=== PATIENT | female | born 1960 | race Caucasian/White ===

== ENCOUNTER 2020-03-02 13:05 | Outpatient (REF) | payer OTHER, SELFPAY ==
--- NOTE | 2020-03-02 | MR_ITS ---
EXAMINATION: MR CHEST WITHOUT AND WITH CONTRAST CLINICAL INFORMATION: Left subclavicular mass and swelling. COMPARISON: Previous neck and chest CT November 2019. TECHNIQUE: Sagittal, axial coronal sequences through the left chest with and without contrast. Patient received 8.5 mL intravenous gadolinium contrast. FINDINGS: No chest wall mass, abnormal signal or enhancement is seen. The overlying fat is normal in signal. No adenopathy is seen. The visualized left lung is unremarkable. The visualized mediastinum and left hilum are unremarkable. There is mild degenerative spondylosis at C5-C6. IMPRESSION: Unremarkable examination.
== END 2020-03-02 13:06 | disposition home or self-care (01) ==
LOC: HO.MRI 13:05
PROVIDERS: Visit Provider Surgery
DX: R22.2 Localized swelling, mass and lump, trunk (principal)
CPT/HCPCS: 71552

== ENCOUNTER → 2020-03-05 13:26 | Outpatient (BNVA) | payer OTHER, SELFPAY | PROVIDERS: Referring Provider Internal Medicine; Visit Provider Surgery | DX: Z76.89 Persons encountering health services in other specified circumstances (principal) ==

== ENCOUNTER → 2020-03-18 09:02 | Outpatient (BNVA) | payer OTHER, SELFPAY | PROVIDERS: PCP Internal Medicine; Visit Provider Surgery | DX: Z76.89 Persons encountering health services in other specified circumstances (principal) ==

== ENCOUNTER 2020-04-30 06:36 | Outpatient (REF) | payer OTHER, SELFPAY ==
[2020-04-30 07:18] LABS: MANUAL DIFF FLAG NO
[2020-04-30 07:22] LABS: Basophils Absolute Auto 0.1 X10*3/uL (0.0-0.2); Basophils Percent Auto 0.7 % (0-2); Eosinophils Absolute Auto 0.3 X10*3/uL (0.0-0.4); Eosinophils Percent Auto 4.5 % (0-4); Hematocrit 39.6 % (37-47); Hemoglobin 13.1 g/dl (12.0-16.0); Imm Gran Abs Auto 0.02 X10*3/uL (0.00-0.03); Imm Gran Pct Auto 0.3 % (0.0-0.4); Lymphocytes Absolute Auto 2.1 X10*3/uL (1.2-4.9); Lymphocytes Percent Auto 27.9 % (20-40); Mean Corpuscular HGB Conc 33.1 g/dl (31.0-35.0); Mean Corpuscular Hemoglobin 31.3 pg (27.0-33.0); Mean Corpuscular Volume 94.7 fL (80-98); Mean Platelet Volume 10.4 fL (9.4-12.3); Monocytes Absolute Auto 0.4 X10*3/uL (0.1-1.2); Monocytes Percent Auto 4.8 % (2-11); Neutrophils Absolute Auto 4.6 X10*3/uL (2.0-8.3); Neutrophils Percent Auto 61.8 % (45-73); Platelet Count 311 X10*3/uL (160-400); Red Blood Count 4.18 X10*6/uL (4.20-5.50); Red Cell Distribution Width 13.2 % (11.0-16.0); White Blood Count 7.5 X10*3/uL (4.8-10.8)
[2020-04-30 07:33] LABS: Alanine Aminotransferase 15 U/L (0-31); Albumin Level 4.2 g/dL (3.5-5.0); Alkaline Phosphatase 74 U/L (39-117); Anion Gap 12 (12-20); Aspartate Amino Transferase 13 U/L (5-31); Bilirubin Total 0.2 mg/dL (0.0-1.0); Blood Urea Nitrogen 19 mg/dL (9-16); C Reactive Protein 0.28 mg/dL (< or = 0.50); Calcium 9.2 mg/dL (8.4-10.2); Carbon Dioxide 30 mmol/L (22-29); Chloride 105 mmol/L (96-108); Cholesterol 223 mg/dL; Estimated Glomerular Filt Rate > 60; Glucose Fasting 94 mg/dL (60-99); HDL Cholesterol 46 mg/dL; Iron 124 mcg/dL (30-160); LDL Cholesterol Calculated 146 mg/dl; Percent Iron Saturation 39 % (15-50); Potassium 5.1 mmol/l (3.3-5.1); Sodium 142 mmol/L (135-145); Total Iron Binding Capacity 315 mcg/dL (228-428); Triglycerides 157 mg/dL; Unsaturated Iron Binding 191 ug/dL
[2020-04-30 07:57] LABS: Thyroid Stimulating Hormone 1.34 uIU/mL (0.32-4.0); Vitamin D 25-OH Total 22.7 ng/mL (>30)
[2020-04-30 08:00] LABS: Vitamin B12 490 pg/mL (200-900)
[2020-05-04 03:06] LABS: Zinc 83 mcg/dL (60-130)
[2020-05-04 13:07] LABS: Vitamin B1 7 nmol/L (8-30)
[2020-05-07 14:52] LABS: Vitamin A 61 mcg/dL (38-98)
== END 2020-04-30 06:37 | disposition home or self-care (01) ==
LOC: HO.LAB 06:36
PROVIDERS: PCP Internal Medicine; Referring Provider Surgery; Visit Provider Internal Medicine Endocrinology, Diabetes & Metabolism
DX: Z01.818 Encounter for other preprocedural examination (principal); K91.2 Postsurgical malabsorption, not elsewhere classified
CPT/HCPCS: 36415; 80053; 80061; 82306; 82607; 83540; 84425; 84443; 84590; 84630; 85025; 86140

== ENCOUNTER 2020-05-04 06:38 | Outpatient (REF) | payer OTHER, SELFPAY ==
[2020-05-04 14:08] LABS: Creatinine, 24Hr Urine 1.5 G/Day (1.0-2.0); Total Volume 24 Hour Urine 850 mL
[2020-05-05 19:13] LABS: Calcium, 24 Hr Urine 121 mg/24 h; Calcium/Creatinine Ratio 82 mg/g creat (30-275); Creatinine 24Hr Urine 1.47 g/24 h (0.50-2.15)
== END 2020-05-04 06:39 | disposition home or self-care (01) ==
LOC: HO.LNPL 06:38
PROVIDERS: PCP Internal Medicine; Visit Provider Internal Medicine Endocrinology, Diabetes & Metabolism
DX: E21.3 Hyperparathyroidism, unspecified (principal)
CPT/HCPCS: 82340; 82570

== ENCOUNTER 2020-05-28 09:21 | Outpatient (REF) | payer OTHER, SELFPAY ==
[2020-05-29 13:12] LABS: BV Int Neg Control Negative (Negative); BV Int Pos Control Positive (Positive)
[2020-06-03 18:33] LABS: HPV 16 RNA NOT DETECTED (NOT DETECTED); HPV mRNA E6/E7 rflx Detected (Not Detected)
== END 2020-05-28 09:22 | disposition home or self-care (01) ==
LOC: HO.LAB 09:21
PROVIDERS: Visit Provider Advanced Practice Midwife
DX: Z12.4 Encounter for screening for malignant neoplasm of cervix (principal); N89.8 Other specified noninflammatory disorders of vagina; R23.2 Flushing; N76.0 Acute vaginitis; N63.13 Unspecified lump in the right breast, lower outer quadrant; Z91.89 Other specified personal risk factors, not elsewhere classified
CPT/HCPCS: 36415; 87480; 87510; 87624; 87625; 87660; 88142

== ENCOUNTER 2020-06-03 14:40 | Outpatient (REF) | payer OTHER, SELFPAY ==
--- NOTE | 2020-06-03 14:48 | MM_ITS ---
EXAMINATION: MM DIAGNOSTIC DIGITAL BREAST TOMOSYNTHESIS, BILATERAL US DIAGNOSTIC ULTRASOUND BREAST, RIGHT CLINICAL INFORMATION: Palpable fullness inferior lateral right breast near inframammary fold. Remote history bilateral reduction mammoplasty decades ago. Recent history significant weight loss, post gastric sleeve. The lifetime risk of breast cancer based on the Tyrer-Cuzick Model is 8%. COMPARISON: Mammography: 07/18/2018, 07/07/2017, TECHNIQUE: Digital breast tomosynthesis is performed in both the craniocaudal and mediolateral oblique views along with computer-aided detection (CAD). Synthesized 2D images are generated from the tomosynthesis. Ultrasound right breast is targeted to the area of palpable concern inferior lateral breast near inframammary fold. Patient is able to point to the area time of imaging. Grayscale imaging and color Doppler are performed without and with harmonics. FINDINGS: There are scattered areas of fibroglandular density (ACR BI-RADS breast composition Category b). Breast tissue composition borders on predominantly fatty. Background fibroglandular and stromal densities are stable. There is no interval mass or developing density or architectural abnormality. No abnormal calcifications. No skin thickening or coarsening of the Golden's ligaments. Ultrasound no cystic or solid mass, architectural abnormality, or focal duct ectasia. No skin thickening or edema tracking in soft tissue planes. There is a fine incidental linear scar consistent with the reduction mammoplasty. Results are discussed with the patient at time of visit. Palpable area may be related to the rib or reduction mammoplasty, noticeable post intentional weight loss. Patient should be managed based on the clinical impression. If clinically indicated, further evaluation may be considered with surgical consult. Decision to proceed with biopsy should be based on clinical grounds and degree of clinical concern. MM/MM diagnostic mammo BI IMPRESSION: 1. No mammographic evidence of malignancy. 2. Unremarkable targeted right breast ultrasound. ASSESSMENT: BI-RADS 2: Benign RECOMMENDATION: 1. Patient should be managed based on the clinical impression. If clinically indicated, further evaluation may be considered with surgical consult. Decision to proceed with biopsy should be based on clinical grounds and degree of clinical concern. 2. Otherwise, routine annual screening mammography. This patient's information was entered into a reminder system with a target due date for their next mammogram.
== END 2020-06-03 14:41 | disposition home or self-care (01) ==
LOC: HO.MAMMO 14:40
PROVIDERS: Visit Provider Advanced Practice Midwife
DX: N63.13 Unspecified lump in the right breast, lower outer quadrant (principal)
CPT/HCPCS: 76642; 77066

== ENCOUNTER 2020-06-05 06:50 | Outpatient (REF) | payer OTHER, SELFPAY ==
[2020-06-05 07:16] LABS: COVID-19 Test Negative (Negative)
== END 2020-06-05 06:51 | disposition home or self-care (01) ==
LOC: HO.EMPCOV 06:50
PROVIDERS: PCP Internal Medicine; Visit Provider Internal Medicine
DX: Z20.822 Contact with and (suspected) exposure to COVID-19 (principal)
CPT/HCPCS: 36415; 87635; C9803

== ENCOUNTER 2020-06-10 09:21 | Outpatient (REF) | payer OTHER, SELFPAY ==
[2020-06-10 09:38] LABS: COVID-19 Test Negative (Negative)
== END 2020-06-10 09:22 | disposition home or self-care (01) ==
LOC: HO.EMPCOV 09:21
PROVIDERS: Visit Provider Internal Medicine
DX: Z20.822 Contact with and (suspected) exposure to COVID-19 (principal)
CPT/HCPCS: 36415; 87635; C9803

== ENCOUNTER 2020-07-07 08:02 | Outpatient (REF) | payer OTHER, SELFPAY | END 2020-07-07 08:03 | disposition home or self-care (01) | LOC: HO.LAB 08:02 | PROVIDERS: PCP Internal Medicine; Visit Provider Obstetrics & Gynecology | DX: R87.612 Low grade squamous intraepithelial lesion on cytologic smear of cervix (LGSIL) (principal); N89.0 Mild vaginal dysplasia | CPT/HCPCS: 57421; 88305 ==

== ENCOUNTER 2020-07-16 15:24 | Outpatient (REF) | payer OTHER, SELFPAY ==
[2020-07-17 08:59] LABS: BV Int Neg Control Negative (Negative); BV Int Pos Control Positive (Positive)
== END 2020-07-16 15:25 | disposition home or self-care (01) ==
LOC: HO.LAB 15:24
PROVIDERS: Visit Provider Nurse Practitioner Family
DX: R10.2 Pelvic and perineal pain (principal); R35.0 Frequency of micturition
CPT/HCPCS: 87086; 87088; 87186; 87480; 87510; 87660

== ENCOUNTER → 2020-07-21 15:46 | Outpatient (BNVA) | payer OTHER, SELFPAY | PROVIDERS: PCP Internal Medicine; Visit Provider Obstetrics & Gynecology ==

== ENCOUNTER → 2020-08-24 10:07 | Outpatient (BNVA) | payer OTHER, SELFPAY | PROVIDERS: PCP Internal Medicine; Visit Provider Surgery ==

== ENCOUNTER 2020-09-03 13:53 | Outpatient (REF) | payer OTHER, SELFPAY ==
[2020-09-03 15:08] LABS: COVID-19 Test Negative (Negative)
== END 2020-09-03 13:54 | disposition home or self-care (01) ==
LOC: HO.EMPCOV 13:53
PROVIDERS: Visit Provider Internal Medicine
DX: Z20.822 Contact with and (suspected) exposure to COVID-19 (principal)
CPT/HCPCS: 36415; 87635; C9803

== ENCOUNTER → 2020-09-16 14:14 | Outpatient (BNVA) | payer OTHER, SELFPAY | PROVIDERS: PCP Surgery; Referring Provider Surgery; Visit Provider Internal Medicine Endocrinology, Diabetes & Metabolism | DX: M85.89 Other specified disorders of bone density and structure, multiple sites (principal); E55.9 Vitamin D deficiency, unspecified | CPT/HCPCS: 99212 ==

== ENCOUNTER 2020-09-23 06:35 | Outpatient (REF) | payer OTHER, SELFPAY ==
[2020-09-23 06:58] LABS: MANUAL DIFF FLAG NO
[2020-09-23 07:04] LABS: Basophils Absolute Auto 0.1 X10*3/uL (0.0-0.2); Basophils Percent Auto 0.6 % (0-2); Eosinophils Absolute Auto 0.4 X10*3/uL (0.0-0.4); Eosinophils Percent Auto 4.6 % (0-4); Hematocrit 38.8 % (37-47); Hemoglobin 12.8 g/dl (12.0-16.0); Imm Gran Abs Auto 0.03 X10*3/uL (0.00-0.03); Imm Gran Pct Auto 0.4 % (0.0-0.4); Lymphocytes Absolute Auto 2.6 X10*3/uL (1.2-4.9); Lymphocytes Percent Auto 30.1 % (20-40); Mean Corpuscular Hemoglobin 31.4 pg (27.0-33.0); Mean Corpuscular Volume 95.3 fL (80-98); Mean Platelet Volume 10.4 fL (9.4-12.3); Monocytes Absolute Auto 0.5 X10*3/uL (0.1-1.2); Monocytes Percent Auto 5.6 % (2-11); Neutrophils Percent Auto 58.7 % (45-73); Platelet Count 289 X10*3/uL (160-400); Red Blood Count 4.07 X10*6/uL (4.20-5.50); White Blood Count 8.5 X10*3/uL (4.8-10.8)
[2020-09-23 07:44] LABS: Alanine Aminotransferase 17 U/L (0-31); Albumin Level 4.1 g/dL (3.5-5.0); Alkaline Phosphatase 82 U/L (39-117); Anion Gap 10 (12-20); Aspartate Amino Transferase 14 U/L (5-31); Bilirubin Total 0.5 mg/dL (0.0-1.0); Blood Urea Nitrogen 23 mg/dL (9-16); Calcium 8.9 mg/dL (8.4-10.2); Carbon Dioxide 31 mmol/L (22-29); Chloride 106 mmol/L (96-108); Estimated Glomerular Filt Rate > 60; Glucose Random 98 mg/dL (60-115); Potassium 4.2 mmol/L (3.3-5.1); Sodium 143 mmol/L (135-145); Total Protein 6.8 g/dL (6.5-8.0)
[2020-09-23 07:46] LABS: Alanine Aminotransferase 17 U/L (0-31); Albumin Level 4.1 g/dL (3.5-5.0); Alkaline Phosphatase 81 U/L (39-117); Anion Gap 12 (12-20); Aspartate Amino Transferase 15 U/L (5-31); Bilirubin Total 0.5 mg/dL (0.0-1.0); Blood Urea Nitrogen 23 mg/dL (9-16); C Reactive Protein 0.42 mg/dL (< or = 0.50); Carbon Dioxide 29 mmol/L (22-29); Chloride 106 mmol/L (96-108); Cholesterol 227 mg/dL; Estimated Glomerular Filt Rate > 60; Glucose Fasting 98 mg/dL (60-99); HDL Cholesterol 45 mg/dL; Iron 101 mcg/dL (30-160); LDL Cholesterol Calculated 139 mg/dl; Percent Iron Saturation 33 % (15-50); Potassium 4.1 mmol/L (3.3-5.1); Sodium 143 mmol/L (135-145); Total Iron Binding Capacity 310 mcg/dL (228-428); Total Protein 6.8 g/dL (6.5-8.0); Triglycerides 217 mg/dL; Unsaturated Iron Binding 209 ug/dL
[2020-09-23 08:06] LABS: Thyroid Stimulating Hormone 1.14 uIU/mL (0.32-4.0); Vitamin D 25-OH Total 25.8 ng/mL (>30)
[2020-09-23 08:33] LABS: Estimated Average Glucose 108 mg/dL; Hemoglobin A1c % 5.4 %
[2020-09-23 08:53] LABS: Vitamin B12 481 pg/mL (200-900)
[2020-09-24 13:12] LABS: Calcium (PTHI) 8.8 mg/dL (8.6-10.4); PTHI 57 pg/mL (14-64)
[2020-09-25 18:16] LABS: Zinc 74 mcg/dL (60-130)
[2020-09-27 10:17] LABS: Vitamin A 47 mcg/dL (38-98)
[2020-09-29 10:32] LABS: Vitamin B1 124 nmol/L (8-30)
== END 2020-09-23 06:36 | disposition home or self-care (01) ==
LOC: HO.LAB 06:35
PROVIDERS: Absent Provider Internal Medicine Endocrinology, Diabetes & Metabolism; PCP Internal Medicine; Visit Provider Surgery
DX: Z01.818 Encounter for other preprocedural examination (principal); K91.2 Postsurgical malabsorption, not elsewhere classified; M85.89 Other specified disorders of bone density and structure, multiple sites; Z90.3 Acquired absence of stomach [part of]
CPT/HCPCS: 36415; 80053; 80061; 82306; 82607; 83036; 83540; 83970; 84425; 84443; 84590; 84630; 85025; 86140

== ENCOUNTER 2020-12-29 11:36 | Observation (INO) | payer OTHER, SELFPAY ==
--- NOTE | ~2020-12-29 | CT_ITS ---
EXAMINATION: CT HEAD WITHOUT CONTRAST (STROKE PROTOCOL) CLINICAL INFORMATION: Stroke protocol. Left arm and left facial weakness COMPARISON: CT brain 12/09/2019 TECHNIQUE: Contiguous axial imaging was performed from the skull base to vertex without intravenous administration of contrast. This CT examination was performed using dose optimization techniques as appropriate, variously including the following: *Automated exposure control *Adjustment of mA and/or kV according to patient size (this includes techniques or standardized protocols for targeted exams where dose is matched to indication/reason for exam; i.e. extremities or head) *Use of iterative reconstruction technique DLP: 609 mGy-cm FINDINGS: There is no intracranial hemorrhage, hematoma, or extra-axial fluid collection. The ventricles are normal in size. There is no hydrocephalus, edema, or mass effect. The villafana-white matter differentiation appears symmetric. There is no acute infarct or mass lesion. The calvarium appears intact. There is no pneumocephalus or orbital emphysema. There is mild mucoperiosteal thickening right maxillary sinus. Rest of the paranasal sinuses and mastoid air cells are well-aerated without air-fluid levels. CT/CT head for stroke IMPRESSION: No acute intracranial process seen. This critical result was discussed with Dr. Lehman at 1240 p.M. on 12/29/2020. It was ascertained that the content and urgency of the report was understood at the time of direct communication.
--- NOTE | ~2020-12-29 | CT_ITS ---
EXAMINATION: CTA OF THE HEAD AND NECK CLINICAL INFORMATION: Left arm and left facial weakness. COMPARISON: Head CT acquired on 12/29/2020. TECHNIQUE: Test bolus sequences followed by intravenous administration of iodinated contrast. Helical imaging was performed in the axial plane from the mediastinum to the skull vertex. Delayed postcontrast imaging of the head was also performed. The data was processed at the lab technologist's workstation for generation of MIP sequences. Three-dimensional volume rendered reformatted images were also generated at an offline 3-D workstation. Stenoses are assessed in accordance with NASCET criteria unless otherwise indicated. This CT examination was performed using dose optimization techniques as appropriate, variously including the following: *Automated exposure control *Adjustment of mA and/or kV according to patient size (this includes techniques or standardized protocols for targeted exams where dose is matched to indication/reason for exam; i.e. extremities or head) *Use of iterative reconstruction technique DLP: 1432 mGy-cm. FINDINGS: CTA neck: The imaged aortic arch and origins of the great vessels are normal. The common carotid arteries are widely patent. The carotid bifurcations are patent. The cervical internal carotid arteries are normal in caliber. The vertebral arteries opacify normally and are of normal caliber. There is a moderate fluid level dependently in the left sphenoid sinus. Mild to moderate ethmoid and maxillary sinus mucosal thickening noted. Moderate spondylosis visible at the C5-C6 level. Mild subsegmental atelectasis in the visualized lungs. CTA head: The intradural vertebral arteries and basilar artery are normal. The posterior cerebral arteries are widely patent. The internal carotid arteries are of normal caliber. The DAY and MCA vascular complexes bilaterally are normal. The venous sinuses opacify normally. No abnormal parenchymal or leptomeningeal enhancement visible. CT/CT angio head neck stroke IMPRESSION: No vascular occlusion or significant stenosis. No acute process. Imaging findings reported to Dr. Lehman at 1:04 PM on 12/29/2020.
--- NOTE | ~2020-12-29 | MR_ITS ---
EXAMINATION: MR BRAIN WITHOUT CONTRAST CLINICAL INFORMATION: Cerebrovascular accident. COMPARISON: CTA head and neck from 12/29/2020. TECHNIQUE: MRI of the brain was obtained using routine sequences without contrast. FINDINGS: No focal restricted diffusion is demonstrated to suggest acute or subacute cerebral ischemia. No evidence of acute or chronic hemorrhagic products on heme-sensitive imaging. Basal ganglia mineralization. Few scattered periventricular and deep white matter T2 FLAIR hyperintensities consistent with mild underlying microangiopathy. The ventricles are normal in morphology and size. No abnormal mass effect. No midline shift. Normal appearance of the pituitary gland. No abnormalities of the posterior fossa with normal appearance of the brainstem and cerebellum. Normal positioning of the cerebellar tonsils. Normal arterial and venous vascular flow voids are present. Normal, homogeneous marrow signal. Moderate mucosal thickening of the paranasal sinuses. No signal abnormalities within the mastoids. MR/MR head/brain wo con IMPRESSION: 1. No acute intracranial abnormalities. 2. Mild underlying microangiopathy.
--- NOTE | ~2020-12-29 | XR_ITS ---
EXAMINATION: XR CHEST CLINICAL INFORMATION: Shortness of breath COMPARISON: Chest radiographs 07/23/2019 x 2, 05/27/2019 TECHNIQUE: Portable upright AP view of the chest was obtained. FINDINGS: There is a fine subpleural scar periphery left mid zone and in retrospect similar to radiograph 05/27/2019. The lungs otherwise clear. There is no vascular congestion, infiltrate, groundglass opacity, or effusion. There is no pneumothorax or pleural reaction. The heart is normal in size. The costophrenic sulci are clear. The hilar and mediastinal contours and bony structures are unremarkable. 2 surgical clips are suggested overlying base of neck not noted on prior radiographs. XR/XR chest 1V IMPRESSION: No acute intrathoracic disease.
[2020-12-29 12:21] VITALS: BP 156/94; PULSE 65; RESP 18; TEMP 36.6; O2SAT 97; BMI 29.0
--- NOTE | 2020-12-29 12:31 | ECG_ITS ---
Test Reason : STROKE Blood Pressure : / mmHG Vent. Rate : 058 BPM Atrial Rate : 058 BPM P-R Int : 172 ms QRS Dur : 088 ms QT Int : 446 ms P-R-T Axes : 055 004 027 degrees QTc Int : 437 ms Sinus bradycardia Otherwise normal ECG When compared with ECG of 23-SEP-2019 19:31, No significant change was found Referred By: Yoli Lehman Electronically Signed By:JIMMY FERNÁNDEZ MD
--- NOTE | 2020-12-29 12:38 | ED.NEUROSD ---
HPI - Neuro Symptoms/Deficit General Chief Complaint: Stroke Stated Complaint: left side of face feeling droopy Time Seen by Provider: 12/29/20 12:30 History of Present Illness HPI Narrative: 60-year-old female status post gastric bypass 1 year ago. Presented today with having left facial numbness along with left arm numbness left leg weakness onset was approximately 10 30 patient was working at the time elected to go to urgent care sent back to the emergency department for further evaluation. Patient denies any fever chills. Had a history of similar symptoms which she describes as anxiety. She has a history of smoking. Just quit about a week ago. No history of diabetes, hypertension, high cholesterol. No heart attack in the past. Patient is from home. Related Data Home Medications Medication Instructions Recorded Confirmed trazodone 100 mg tablet 100 mg PO BEDTIME 03/05/20 12/29/20 lorazepam 1 mg tablet 1 mg PO BID PRN 08/24/20 12/29/20 calcium carbonate 500 mg calcium 500 mg PO DAILY 12/29/20 12/29/20 (1,250 mg) tablet (Calcium 500) Previous Rx's Medication Instructions Recorded cholecalciferol (vitamin D3) 50 50 mcg PO DAILY 30 Days #30 tab 09/16/20 mcg (2,000 unit) tablet Allergies Allergy/AdvReac Type Severity Reaction Status Date / Time No Known Allergies Allergy Verified 12/29/20 12:21 [No Known Allergies*] varenicline AdvReac Unknown suicidal Verified 12/29/20 12:21 ideations Review of Systems Review of Systems: No chest pain or diaphoresis No coughing or congestion or upper respiratory symptoms No recreational drug use Positive history anxiety Status post gastric sleeve surgery 1 year ago Yes all other systems are reviewed and are negative [facility] Past Medical History Attestation statement: The following information was validated with the patient. 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 History of primary hyperparathyroidism Hypertension Obesity Osteopenia Overweight Vitamin D deficiency Surgical History H/O bilateral breast reduction surgery History of adjustable gastric banding History of colonoscopy History of esophagogastroduodenoscopy (EGD) History of parathyroidectomy History of repair of hiatal hernia History of total abdominal hysterectomy and bilateral salpingo-oophorectomy S/P laparoscopic sleeve gastrectomy Family History Family History Father Emphysema of lung Myocardial infarction Cardiovascular disease Hypertension Mother Hypertension Diabetes Arthritis of knee Brother No problems noted. Sister No problems noted. Sister No problems noted. Sister No problems noted. Son No problems noted. Daughter No problems noted. Daughter No problems noted. Daughter No problems noted. Paternal Grandfather Colon cancer Maternal Aunt Lymphoma Breast cancer Paternal Grandmother Rheumatoid arthritis Social History Social History Alcohol intake: never Patient Tobacco Use Status: Former Tobacco user Cigarettes Per Day: 0 Use of substances other than those prescribed or required for medical reasons: Yes Substance Use Type: Marijuana Substance Use Frequency: Occasionally Advance Directives: No Advance Directives Information Provided: No Physical Exam Vital Signs: Vital Signs: Last Vital Signs Temp 98.2 F 12/29/20 13:21 Pulse 55 12/29/20 13:21 Resp 18 12/29/20 13:21 BP 119/79 12/29/20 13:21 Pulse Ox 99 12/29/20 13:21 Body Mass Index 29.0 Appearance: Alert. Oriented X3. No acute distress. Eyes: Pupils equal, round and reactive to light. ENT: Pharynx normal. Neck: Normal inspection. Neck supple. No lymph nodes noted. No crepitus CVS: Normal heart rate and rhythm. Pulses normal. Normal S1 and S2 Respiratory: No respiratory distress. Breath sounds normal. No Wheezing. No rales Abdomen: Soft and nontender. No rigidity. No distention. good BS x4 Skin: Skin warm and dry. Normal skin color. Normal skin turgor. Extremities: No lower extremity edema. Neurovascular intact to all extremities. No Lacerations. No Rash Neuro: Oriented X 3. Slight weakness noted in the left lower extremity. Able to hold up against gravity for greater than 5 seconds. Although cannot hold it to the same height as the right lower extremity. Right upper extremity showed good strength 5/5. There is no drift noted. Rapid alternating movement grossly intact. There is no slurred speech. Sensation the lower extremity intact. No sensory deficit. No slurred speech MDM - Neuro Symptoms/Deficit MDM Narrative Medical decision making narrative: Patient initially had weakness to the left leg. Numbness to the left face. Questionable weakness to the left arm. CT scan of the head was grossly negative for any acute evidence of bleeding. No mass noted. CTA did not show any large vessel occlusions. Patient's symptom was improving on returning from the CT scanner. NIH stroke scale is 1. Finding discussed with Neurology. Agreed given the mild degree of finding. Given the symptom improving. Patient is not a good candidate for tPA. Patient's case discussed with the hospitalist team. Will admit for further evaluation. An MRI was ordered. Lab Data Result diagrams: 12/29/20 12:42 12/29/20 12:42 Labs: Lab Results 12/29/20 12/29/20 12/29/20 Range/Units 12:36 12:42 12:42 WBC 8.1 (4.8-10.8) X10*3/uL RBC 4.16 L (4.20-5.50) X10*6/uL Hgb 13.2 (12.0-16.0) g/dl Hct 39.5 (37-47) % MCV 95.0 (80-98) fL MCH 31.7 (27.0-33.0) pg MCHC 33.4 (31.0-35.0) g/dl RDW 13.0 (11.0-16.0) % Plt Count 274 (160-400) X10*3/uL MPV 10.1 (9.4-12.3) fL Immature Gran % (Auto) 0.2 (0.0-0.4) % Neut % (Auto) 58.1 (45-73) % Lymph % (Auto) 31.1 (20-40) % [place] % (Auto) 5.4 (2-11) % Eos % (Auto) 4.7 H (0-4) % Baso % (Auto) 0.5 (0-2) % Lymph # (Auto) 2.5 (1.2-4.9) X10*3/uL Churchill # (Auto) 0.4 (0.1-1.2) X10*3/uL Eos # (Auto) 0.4 (0.0-0.4) X10*3/uL Baso # (Auto) 0.0 (0.0-0.2) X10*3/uL Abs Immat Gran (auto) 0.02 (0.00-0.03) X10*3/uL Absolute Neuts (auto) 4.7 (2.0-8.3) X10*3/uL Absolute Nucleated RBC 0.000 (0.0-0.012) X10*3/uL Nucleated RBC % (auto) 0.0 (0.0-0.2) /100WBC PT 10.7 (9.9-13.0) SEC Whole Blood PT (11.1-13.5) sec INR 0.9 (0.9-1.1) Whole Blood INR (0.9-1.1) APTT 36.0 (24.1-38.0) SEC Sodium (135-145) mmol/L Potassium (3.3-5.1) mmol/L Chloride (96-108) mmol/L Carbon Dioxide (22-29) mmol/L Anion Gap (12-20) BUN (9-16) mg/dL Creatinine (0.5-1.4) mg/dL Estim Creat Clear Calc Estimated GFR POC Glucose 93 (60-115) mg/dL Random Glucose (60-115) mg/dL Calcium (8.4-10.2) mg/dL Total Creatine Kinase (26-140) U/L Troponin I High Sens (<3.5-17.0) ng/L Urine Color Urine Appearance Urine pH (5.0-8.0) Ur Specific [place] (1.005-1.025) Urine Protein (NEG-TRACE) MG/DL Urine Glucose (UA) (NEG) MG/DL Urine Ketones (NEG) MG/DL Urine Blood (NEG) Urine Nitrite (NEG) Ur Leukocyte Esterase (NEG) Hep Bs Antigen (Negative) Hep Bs Antibody (Nonreactive) Hep B Core Total Ab (Nonreactive) Hepatitis C Antibody (Nonreactive) HIV 1&2 Ab/P24 Ag 4thGn (Nonreactive) 12/29/20 12/29/20 12/29/20 Range/Units 12:42 12:42 12:51 WBC (4.8-10.8) X10*3/uL RBC (4.20-5.50) X10*6/uL Hgb (12.0-16.0) g/dl Hct (37-47) % MCV (80-98) fL MCH (27.0-33.0) pg MCHC (31.0-35.0) g/dl RDW (11.0-16.0) % Plt Count (160-400) X10*3/uL MPV (9.4-12.3) fL Immature Gran % (Auto) (0.0-0.4) % Neut % (Auto) (45-73) % Lymph % (Auto) (20-40) % Churchill % (Auto) (2-11) % Eos % (Auto) (0-4) % Baso % (Auto) (0-2) % Lymph # (Auto) (1.2-4.9) X10*3/uL Churchill # (Auto) (0.1-1.2) X10*3/uL Eos # (Auto) (0.0-0.4) X10*3/uL Baso # (Auto) (0.0-0.2) X10*3/uL Abs Immat Gran (auto) (0.00-0.03) X10*3/uL Absolute Neuts (auto) (2.0-8.3) X10*3/uL Absolute Nucleated RBC (0.0-0.012) X10*3/uL Nucleated RBC % (auto) (0.0-0.2) /100WBC PT (9.9-13.0) SEC Whole Blood PT 12.4 (11.1-13.5) sec INR (0.9-1.1) Whole Blood INR 1.0 (0.9-1.1) APTT (24.1-38.0) SEC Sodium 142 (135-145) mmol/L Potassium 4.4 (3.3-5.1) mmol/L Chloride 106 (96-108) mmol/L Carbon Dioxide 27 (22-29) mmol/L Anion Gap 13 (12-20) BUN 19 H (9-16) mg/dL Creatinine 0.78 (0.5-1.4) mg/dL Estim Creat Clear Calc 81.5 Estimated GFR > 60 POC Glucose (60-115) mg/dL Random Glucose 89 (60-115) mg/dL Calcium 8.9 (8.4-10.2) mg/dL Total Creatine Kinase 75 (26-140) U/L Troponin I High Sens < 3.5 (<3.5-17.0) ng/L Urine Color Urine Appearance Urine pH (5.0-8.0) Ur Specific [place] (1.005-1.025) Urine Protein (NEG-TRACE) MG/DL Urine Glucose (UA) (NEG) MG/DL Urine Ketones (NEG) MG/DL Urine Blood (NEG) Urine Nitrite (NEG) Ur Leukocyte Esterase (NEG) Hep Bs Antigen (Negative) Hep Bs Antibody (Nonreactive) Hep B Core Total Ab (Nonreactive) Hepatitis C Antibody (Nonreactive) HIV 1&2 Ab/P24 Ag 4thGn (Nonreactive) 12/29/20 12/29/20 12/29/20 Range/Units 13:00 14:10 14:36 WBC (4.8-10.8) X10*3/uL RBC (4.20-5.50) X10*6/uL Hgb (12.0-16.0) g/dl Hct (37-47) % MCV (80-98) fL MCH (27.0-33.0) pg MCHC (31.0-35.0) g/dl RDW (11.0-16.0) % Plt Count (160-400) X10*3/uL MPV (9.4-12.3) fL Immature Gran % (Auto) (0.0-0.4) % Neut % (Auto) (45-73) % Lymph % (Auto) (20-40) % Churchill % (Auto) (2-11) % Eos % (Auto) (0-4) % Baso % (Auto) (0-2) % Lymph # (Auto) (1.2-4.9) X10*3/uL Churchill # (Auto) (0.1-1.2) X10*3/uL Eos # (Auto) (0.0-0.4) X10*3/uL Baso # (Auto) (0.0-0.2) X10*3/uL Abs Immat Gran (auto) (0.00-0.03) X10*3/uL Absolute Neuts (auto) (2.0-8.3) X10*3/uL Absolute Nucleated RBC (0.0-0.012) X10*3/uL Nucleated RBC % (auto) (0.0-0.2) /100WBC PT (9.9-13.0) SEC Whole Blood PT (11.1-13.5) sec INR (0.9-1.1) Whole Blood INR (0.9-1.1) APTT (24.1-38.0) SEC Sodium (135-145) mmol/L Potassium (3.3-5.1) mmol/L Chloride (96-108) mmol/L Carbon Dioxide (22-29) mmol/L Anion Gap (12-20) BUN (9-16) mg/dL Creatinine (0.5-1.4) mg/dL Estim Creat Clear Calc Estimated GFR POC Glucose 87 (60-115) mg/dL Random Glucose (60-115) mg/dL Calcium (8.4-10.2) mg/dL Total Creatine Kinase (26-140) U/L Troponin I High Sens (<3.5-17.0) ng/L Urine Color YELLOW Urine Appearance HAZY Urine pH 6.0 (5.0-8.0) Ur Specific [place] 1.015 (1.005-1.025) Urine Protein NEG (NEG-TRACE) MG/DL Urine Glucose (UA) NEG (NEG) MG/DL Urine Ketones NEG (NEG) MG/DL Urine Blood NEG (NEG) Urine Nitrite NEG (NEG) Ur Leukocyte Esterase NEG (NEG) Hep Bs Antigen Negative (Negative) Hep Bs Antibody NONREACTIVE (Nonreactive) Hep B Core Total Ab Nonreactive (Nonreactive) Hepatitis C Antibody NonReactive (Nonreactive) HIV 1&2 Ab/P24 Ag 4thGn Nonreactive (Nonreactive) NIH Stroke Scale Internal: Initial- Upon Arrival Time: 12:29 Level of Consciousness: Alert Level of Consciousness Questions: Answers both questions correctly Level of Consciousness Commands: Performs both tasks correctly Best Gaze: Normal Visual: No visual loss Facial Palsy: Normal Motor Arm (Right): No drift Motor Arm (Left): No drift Motor Leg (Right): No drift Motor Leg (Left): Drift Limb Ataxia: Absent Sensory: Normal Best Language: No aphasia Dysarthia: Normal Extinction and Inattention: No abnormality Score: 1 Discharge Plan Discharge Clinical Impression: Acute CVA (cerebrovascular accident) Patient Disposition: Admitted As Inpatient Prescriptions: No Action calcium carbonate [Calcium 500] 500 mg calcium (1,250 mg) Tablet 500 mg PO DAILY RF: 0 trazodone 100 mg tablet 100 mg PO BEDTIME RF: 0 lorazepam 1 mg tablet 1 mg PO BID PRN (Reason: Anxiety) RF: 0 cholecalciferol (vitamin D3) 50 mcg (2,000 unit) tablet 50 mcg PO DAILY 30 Days Qty: 30 RF: 11
[2020-12-29 12:45] LABS: MANUAL DIFF FLAG NO
[2020-12-29 12:48] LABS: Basophils Percent Auto 0.5 % (0-2); Eosinophils Absolute Auto 0.4 X10*3/uL (0.0-0.4); Eosinophils Percent Auto 4.7 % (0-4); Hematocrit 39.5 % (37-47); Hemoglobin 13.2 g/dl (12.0-16.0); Imm Gran Abs Auto 0.02 X10*3/uL (0.00-0.03); Imm Gran Pct Auto 0.2 % (0.0-0.4); Lymphocytes Absolute Auto 2.5 X10*3/uL (1.2-4.9); Lymphocytes Percent Auto 31.1 % (20-40); Mean Corpuscular HGB Conc 33.4 g/dl (31.0-35.0); Mean Corpuscular Hemoglobin 31.7 pg (27.0-33.0); Mean Platelet Volume 10.1 fL (9.4-12.3); Monocytes Absolute Auto 0.4 X10*3/uL (0.1-1.2); Monocytes Percent Auto 5.4 % (2-11); Neutrophils Absolute Auto 4.7 X10*3/uL (2.0-8.3); Neutrophils Percent Auto 58.1 % (45-73); Platelet Count 274 X10*3/uL (160-400); Red Blood Count 4.16 X10*6/uL (4.20-5.50); White Blood Count 8.1 X10*3/uL (4.8-10.8)
[2020-12-29 12:54] LABS: Prothrombin Time Whole Bld POC 12.4 sec (11.1-13.5)
[2020-12-29 12:56] LABS: INTERNATIONAL NORM RATIO 0.9 (0.9-1.1); Prothrombin Time 10.7 SEC (9.9-13.0)
[2020-12-29 12:57] LABS: Glucose, Whole Blood 93 mg/dL (60-115)
[2020-12-29 13:01] LABS: Stroke Lab Use COMPLETE
[2020-12-29] MEDS: iohexoL 350 MG/ML 100 ML INFUS..BTL IV (13:01)
[2020-12-29 13:10] LABS: Glucose, Whole Blood 87 mg/dL (60-115)
[2020-12-29 13:16] LABS: Anion Gap 13 (12-20); Blood Urea Nitrogen 19 mg/dL (9-16); Calcium 8.9 mg/dL (8.4-10.2); Carbon Dioxide 27 mmol/L (22-29); Chloride 106 mmol/L (96-108); Creatinine Clr Calc Pharmacy 81.5; Estimated Glomerular Filt Rate > 60; Glucose Random 89 mg/dL (60-115); Potassium 4.4 mmol/L (3.3-5.1); Sodium 142 mmol/L (135-145)
[2020-12-29] MEDS: LORazepam 2 MG/ML VIAL 0.5 MG IVPUSH (13:17)
--- NOTE | 2020-12-29 13:19 | PC.NURSE ---
patient a&ox3, iv inserted, labs drawn, ct scan performed, pt passed swallow eval-provider notified. security monitor applied, ekg performed pt sinus anisa 50s, vitals stable, pt no c/o pain or discomfort at this time.
[2020-12-29 13:20] LABS: Troponin-I High Sensitivity < 3.5 ng/L (<3.5-17.0)
[2020-12-29 13:21] VITALS: BP 119/79; PULSE 55; RESP 18; TEMP 36.8; O2SAT 99
--- NOTE | 2020-12-29 14:17 | PHA.MEDREC ---
Pharmacy Consult ? Medication Reconciliation Pharmacy has completed the medication reconciliation. spoke with patient in ED
--- NOTE | 2020-12-29 14:39 | PC.NURSE ---
this nurse ambulated patient to bathroom to obtain urine, patients gait was very unsteady while ambulating. pt continues to state that she doesnt wish to stay in the hospital, boyfriend at bedside is encouraging patient to stay. ed provider notified of patients unsteady gait, will continue to monitor.
[2020-12-29 14:44] LABS: Glucose Urine UA NEG (NEG); Leukocyte Esterase Urine NEG (NEG); Nitrite Urine NEG (NEG); Specific Gravity - Urine 1.015 (1.005-1.025); Urine Blood NEG (NEG); Urine Ketones NEG (NEG); Urine Protein NEG (NEG-TRACE)
[2020-12-29 14:45] LABS: Appearance Urine HAZY; Color Urine YELLOW
[2020-12-29 15:20] LABS: HBc Num1 0.05 S/CO (0.00-0.79); HIV AB/AG Nonreactive (Nonreactive); HIV Num 1 0.08 S/CO (0.00-0.99); Hepatitis B Core Antibody Nonreactive (Nonreactive); Hepatitis B Surface Antigen Negative (Negative); ~HepC Num1 0.12 S/CO (0.00-0.79)
[2020-12-29 15:21] LABS: HBS Num1 0.17 mIU/mL (0-7.99); ~Hepatitis B Surface Antibody NONREACTIVE (Nonreactive)
[2020-12-29 15:23] LABS: Hepatitis C Ab Exposure Source NonReactive (Nonreactive)
[2020-12-29 15:49] LABS: Influenza A PCR NEGATIVE (Negative); Influenza B PCR NEGATIVE (Negative); Resp Syncy Virus RNA Qual PCR NEGATIVE (Negative); SARS COV2 PCR INHOUSE NEGATIVE (Negative)
--- NOTE | 2020-12-29 16:00 | P.HPHOSP_ITS ---
History of Present Illness Date of Service: 12/29/20 Chief Complaint: left sided parasthesias 60F presented with left sided parasthesias. patient reports feeling unwell last couple of days, fatigue, diarrhea. then on day of admission started feeling parasthesias on left side of face and left hand cramping, similar to when she was hypocalcemic s/p parathyroidectomy. she went to urgent care to check labs, at urgent care, they noted left sided facial droop, left upper and lower weakness, therefore, sent to ED to rule out CVA. in ED CTA was negative for acute stroke. symptoms have persisted, no tpa due to being out of time window. 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 Sister No problems noted. Sister No problems noted. Sister No problems noted. Son No problems noted. Daughter No problems noted. Daughter No problems noted. Daughter No problems noted. Paternal Grandfather Colon cancer Maternal Aunt Lymphoma Breast cancer Paternal Grandmother Rheumatoid arthritis Family history: reviewed and not pertinent Surgical History H/O bilateral breast reduction surgery History of adjustable gastric banding History of colonoscopy History of esophagogastroduodenoscopy (EGD) History of parathyroidectomy History of repair of hiatal hernia History of total abdominal hysterectomy and bilateral salpingo-oophorectomy S/P laparoscopic sleeve gastrectomy Social History Alcohol intake: never Patient Tobacco Use Status: Former Tobacco user Cigarettes Per Day: 0 Use of substances other than those prescribed or required for medical reasons: Yes Substance Use Type: Marijuana Substance Use Frequency: Occasionally Advance Directives: No Advance Directives Information Provided: No Meds Allergies Allergy/AdvReac Type Severity Reaction Status Date / Time No Known Allergies Allergy Verified 12/29/20 12:21 [No Known Allergies*] varenicline AdvReac Unknown suicidal Verified 12/29/20 12:21 ideations Active Medications: Current Medications Generic Name Dose Route Start Last Admin Trade Name Monik PRN Reason Stop Dose Admin Aspirin 81 mg 12/30/20 09:00 Aspirin Enteric Coated 81 Mg Tablet.Dr PO DAILY [facility] Calcium Carbonate 500 mg 12/30/20 09:00 Calcium Carbonate 500 Mg Tablet PO DAILY [facility] Lorazepam 1 mg 12/29/20 15:56 Lorazepam 1 Mg Tablet PO BID PRN Anxiety Pharmacy Consult 1 each 12/29/20 13:38 Consult Rx Perform Med Rec MISCELLANE ONCE PRN Consult order Trazodone HCl 100 mg 12/29/20 21:00 Trazodone Hcl 100 Mg Tablet PO BEDTIME [facility] Vitamin D 50 mcg 12/30/20 09:00 Cholecalciferol (Vitamin D3) 25 Mcg Tablet PO DAILY [facility] Home Medications Medication Instructions Recorded Confirmed Last Taken Type trazodone 100 mg tablet 100 mg PO BEDTIME 03/05/20 12/29/20 12/28/20 History lorazepam 1 mg tablet 1 mg PO BID PRN 08/24/20 12/29/20 12/28/20 History calcium carbonate 500 mg calcium 500 mg PO DAILY 12/29/20 12/29/20 Unknown History (1,250 mg) tablet (Calcium 500) Physical Exam Vital Signs and Narrative: Vital Signs: Last Vital Signs Temp 98.2 F 12/29/20 13:21 Pulse 55 12/29/20 13:21 Resp 18 12/29/20 13:21 BP 119/79 12/29/20 13:21 Pulse Ox 99 12/29/20 13:21 Body Mass Index 29.0 General: no acute distress HEENT: atraumatic Neck: normal to visual inspection CVS: S1, S2, RRR Resp: CTA bilateral Chest: non tender GI: soft, non tender, non distended : no CVA tenderness Skin: no rashes Extremities: no edema Neuro: Oriented X3, left upper and lower decreased sensation, left le 4/5 strength Psych: cooperative Results Labs CBC and Chem 7: 12/29/20 12:42 12/29/20 12:42 Labs: Laboratory Results - last 24 hr 12/29/20 12/29/20 12/29/20 12:36 12:42 12:42 MCV 95.0 MCH 31.7 MCHC 33.4 RDW 13.0 Plt Count 274 MPV 10.1 Immature Gran % (Auto) 0.2 Neut % (Auto) 58.1 Lymph % (Auto) 31.1 Frederick % (Auto) 5.4 Eos % (Auto) 4.7 H Baso % (Auto) 0.5 Lymph # (Auto) 2.5 Frederick # (Auto) 0.4 Eos # (Auto) 0.4 Baso # (Auto) 0.0 Abs Immat Gran (auto) 0.02 Absolute Neuts (auto) 4.7 Absolute Nucleated RBC 0.000 Nucleated RBC % (auto) 0.0 PT 10.7 Whole Blood PT INR 0.9 Whole Blood INR APTT 36.0 Anion Gap Estim Creat Clear Calc Estimated GFR POC Glucose 93 Random Glucose Calcium Total Creatine Kinase Troponin I High Sens Urine Color Urine Appearance Urine pH Ur Specific [place] Urine Protein Urine Glucose (UA) Urine Ketones Urine Blood Urine Nitrite Ur Leukocyte Esterase Coronavirus (PCR) Hep Bs Antigen Hep Bs Antibody Hep B Core Total Ab Hepatitis C Antibody HIV 1&2 Ab/P24 Ag 4thGn Influenza Type A (PCR) Influenza Type B (PCR) RSV RNA Qual (PCR) 12/29/20 12/29/20 12/29/20 12:42 12:42 12:51 MCV MCH MCHC RDW Plt Count MPV Immature Gran % (Auto) Neut % (Auto) Lymph % (Auto) Frederick % (Auto) Eos % (Auto) Baso % (Auto) Lymph # (Auto) Frederick # (Auto) Eos # (Auto) Baso # (Auto) Abs Immat Gran (auto) Absolute Neuts (auto) Absolute Nucleated RBC Nucleated RBC % (auto) PT Whole Blood PT 12.4 INR Whole Blood INR 1.0 APTT Anion Gap 13 Estim Creat Clear Calc 81.5 Estimated GFR > 60 POC Glucose Random Glucose 89 Calcium 8.9 Total Creatine Kinase 75 Troponin I High Sens < 3.5 Urine Color Urine Appearance Urine pH Ur Specific [place] Urine Protein Urine Glucose (UA) Urine Ketones Urine Blood Urine Nitrite Ur Leukocyte Esterase Coronavirus (PCR) Hep Bs Antigen Hep Bs Antibody Hep B Core Total Ab Hepatitis C Antibody HIV 1&2 Ab/P24 Ag 4thGn Influenza Type A (PCR) Influenza Type B (PCR) RSV RNA Qual (PCR) 12/29/20 12/29/20 12/29/20 13:00 14:10 14:10 MCV MCH MCHC RDW Plt Count MPV Immature Gran % (Auto) Neut % (Auto) Lymph % (Auto) Frederick % (Auto) Eos % (Auto) Baso % (Auto) Lymph # (Auto) Frederick # (Auto) Eos # (Auto) Baso # (Auto) Abs Immat Gran (auto) Absolute Neuts (auto) Absolute Nucleated RBC Nucleated RBC % (auto) PT Whole Blood PT INR Whole Blood INR APTT Anion Gap Estim Creat Clear Calc Estimated GFR POC Glucose 87 Random Glucose Calcium Total Creatine Kinase Troponin I High Sens Urine Color Urine Appearance Urine pH Ur Specific [place] Urine Protein Urine Glucose (UA) Urine Ketones Urine Blood Urine Nitrite Ur Leukocyte Esterase Coronavirus (PCR) NEGATIVE Hep Bs Antigen Negative Hep Bs Antibody NONREACTIVE Hep B Core Total Ab Nonreactive Hepatitis C Antibody NonReactive HIV 1&2 Ab/P24 Ag 4thGn Nonreactive Influenza Type A (PCR) NEGATIVE Influenza Type B (PCR) NEGATIVE RSV RNA Qual (PCR) NEGATIVE 12/29/20 14:36 MCV MCH MCHC RDW Plt Count MPV Immature Gran % (Auto) Neut % (Auto) Lymph % (Auto) Frederick % (Auto) Eos % (Auto) Baso % (Auto) Lymph # (Auto) Frederick # (Auto) Eos # (Auto) Baso # (Auto) Abs Immat Gran (auto) Absolute Neuts (auto) Absolute Nucleated RBC Nucleated RBC % (auto) PT Whole Blood PT INR Whole Blood INR APTT Anion Gap Estim Creat Clear Calc Estimated GFR POC Glucose Random Glucose Calcium Total Creatine Kinase Troponin I High Sens Urine Color YELLOW Urine Appearance HAZY Urine pH 6.0 Ur Specific [place] 1.015 Urine Protein NEG Urine Glucose (UA) NEG Urine Ketones NEG Urine Blood NEG Urine Nitrite NEG Ur Leukocyte Esterase NEG Coronavirus (PCR) Hep Bs Antigen Hep Bs Antibody Hep B Core Total Ab Hepatitis C Antibody HIV 1&2 Ab/P24 Ag 4thGn Influenza Type A (PCR) Influenza Type B (PCR) RSV RNA Qual (PCR) Imaging Radiologist's Impressions: Impressions Chest X-Ray 12/29/20 12:30 IMPRESSION: No acute intrathoracic disease. Head/Neck CTA 12/29/20 12:32 IMPRESSION: No vascular occlusion or significant stenosis. No acute process. Imaging findings reported to Dr. Lehman at 1:04 PM on 12/29/2020. Head CT 12/29/20 12:34 IMPRESSION: No acute intracranial process seen. This critical result was discussed with Dr. Lehman at 1240 p.M. on 12/29/2020. It was ascertained that the content and urgency of the report was understood at the time of direct communication. Assessment and Plan (1) Arm paresthesia, left: Status: Acute 60F presented with left sided parasthesias and weakness rule out CVA/TIA check mri tele neuro eval asa anxiety lorazepam insomnia trazodone hisotry of parathyroidectomy continue vitd, calcium carbonate Quality Stroke Does the patient have a stroke diagnosis?: No VTE Prior VTE?: No VTE Risk Level:: Medical - moderate - high VTE Device Contraindication: Treatment Not Indicated VTE Drug Contraindication: N/A - Med Ordered
[2020-12-29 16:12] VITALS: BP 115/67; PULSE 54; RESP 15; TEMP 36.9; O2SAT 94
[2020-12-29 16:33] LABS: Magnesium 2.3 mg/dL (1.6-2.6)
[2020-12-29] MEDS: Acetaminophen 325 MG TABLET 650 MG PO (16:40)
--- NOTE | 2020-12-29 16:41 | PC.NURSE ---
Addendum entered by Jenni Rubio 12/29/20 16:44: edit: Patient to MRI at this time. Original Note: Patient medicated w/ tylenol for 3/10 headache to bilateral temples. patient to tylenol at this time
--- NOTE | 2020-12-29 17:11 | PC.NURSE ---
attempted to call report to floor, RN didnt answer
[2020-12-29 17:33] VITALS: BP 136/82; PULSE 73; RESP 16; O2SAT 93
--- NOTE | 2020-12-29 18:25 | P.CNNE_ITS ---
History of Present Illness Data of Consult Service Date: 12/29/20 Primary Care Provider: Indiana Chu MD HPI Reason for consult: Left facial paresthesias. Left hand cramping This is a 60-year-old womanWith a history of anxiety disorder, gastric sleeves surgery and some malabsorption problems, presented with the left facial paresthesia in left hand cramping somewhat similar to what she had previously w ith hypocalcemia following parathyroidectomy. Her stroke scale was 0. She had a CT and CTA which were unremarkable. TPA was not administered because her symptoms have been going on overnight and she had no objective deficits. She is admitted for observation. 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 Sister No problems noted. Sister No problems noted. Sister No problems noted. Son No problems noted. Daughter No problems noted. Daughter No problems noted. Daughter No problems noted. Paternal Grandfather Colon cancer Maternal Aunt Lymphoma Breast cancer Paternal Grandmother Rheumatoid arthritis Family history: reviewed and not pertinent Surgical History Surgical History H/O bilateral breast reduction surgery History of adjustable gastric banding History of colonoscopy History of esophagogastroduodenoscopy (EGD) History of parathyroidectomy History of repair of hiatal hernia History of total abdominal hysterectomy and bilateral salpingo-oophorectomy S/P laparoscopic sleeve gastrectomy Social History Social History Alcohol intake: never Patient Tobacco Use Status: Former Tobacco user Cigarettes Per Day: 0 Use of substances other than those prescribed or required for medical reasons: Yes Substance Use Type: Marijuana Substance Use Frequency: Occasionally Advance Directives: No Advance Directives Information Provided: No Meds Allergies Allergy/AdvReac Type Severity Reaction Status Date / Time No Known Allergies Allergy Verified 12/29/20 12:21 [No Known Allergies*] varenicline AdvReac Unknown suicidal Verified 12/29/20 12:21 ideations Active Medications: Current Medications Generic Name Dose Route Start Last Admin Trade Name Freq PRN Reason Stop Dose Admin Acetaminophen 650 mg 12/29/20 15:58 12/29/20 16:40 Acetaminophen 325 Mg Tablet PO 650 mg Q6H PRN Administration Pain, Mild (Pain Scale 1-3) Aspirin 81 mg 12/30/20 09:00 Aspirin Enteric Coated 81 Mg Tablet.Dr PO DAILY [facility] Calcium Carbonate 500 mg 12/30/20 09:00 Calcium Carbonate 500 Mg Tablet PO DAILY [facility] Lorazepam 1 mg 12/29/20 15:56 Lorazepam 1 Mg Tablet PO BID PRN Anxiety Pharmacy Consult 1 each 12/29/20 13:38 Consult Rx Perform Med Rec MISCELLANE ONCE PRN Consult order Rivaroxaban 10 mg 12/30/20 09:00 Rivaroxaban 10 Mg Tablet PO DAILY [facility] Sodium Chloride 3 ml 12/29/20 16:00 0.9 % Sodium Chloride Flush 3 Ml Syringe IVFLUSH QSHIFT [facility] Trazodone HCl 100 mg 12/29/20 21:00 Trazodone Hcl 100 Mg Tablet PO BEDTIME [facility] Vitamin D 50 mcg 12/30/20 09:00 Cholecalciferol (Vitamin D3) 25 Mcg Tablet PO DAILY [facility] Home Medications Medication Instructions Recorded Confirmed Last Taken Type trazodone 100 mg tablet 100 mg PO BEDTIME 03/05/20 12/29/20 12/28/20 History lorazepam 1 mg tablet 1 mg PO BID PRN 08/24/20 12/29/20 12/28/20 History calcium carbonate 500 mg calcium 500 mg PO DAILY 12/29/20 12/29/20 Unknown History (1,250 mg) tablet (Calcium 500) Physical Exam Vital Signs: Vital Signs: Last Vital Signs Temp 98.4 F 12/29/20 16:12 Pulse 73 12/29/20 17:33 Resp 16 08/10/21 17:33 BP 136/82 12/29/20 17:33 Pulse Ox 93 12/29/20 17:33 Body Mass Index 29.0 Neuro: Other: Alert and oriented with normal intellectual functions. Cranial nerves II through XII are normal. Muscle tone and strength are normal in all 4 extremities. Deep tendon reflexes symmetrical. Plantar response are flexor. Gait and coordination are normal. Results Labs CBC & Chem 7: 12/29/20 12:42 12/29/20 12:42 Labs: Short CBC 12/29/20 Range/Units 12:42 WBC 8.1 (4.8-10.8) X10*3/uL Hgb 13.2 (12.0-16.0) g/dl Hct 39.5 (37-47) % Plt Count 274 (160-400) X10*3/uL BMP 12/29/20 12:42 Sodium 142 Potassium 4.4 Chloride 106 Carbon Dioxide 27 BUN 19 H Creatinine 0.78 Calcium 8.9 Cardiac Enzymes 12/29/20 Range/Units 12:42 Total Creatine Kinase 75 (26-140) U/L Urine 12/29/20 Range/Units 14:36 Urine Color YELLOW Urine Appearance HAZY Urine pH 6.0 (5.0-8.0) Ur Specific [place] 1.015 (1.005-1.025) Urine Protein NEG (NEG-TRACE) MG/DL Urine Glucose (UA) NEG (NEG) MG/DL Assessment and Plan (1) Arm paresthesia, left: Status: Acute Probably anxiety related, rule out TIA. I recommend MRI of the brain. CTA was unremarkable 60F presented with left sided parasthesias and weakness rule out CVA/TIA check mri tele neuro eval asa anxiety lorazepam insomnia trazodone hisotry of parathyroidectomy continue vitd, calcium carbonate Procedures Date of Service Date of Service: 12/29/20
[2020-12-29] MEDS: 0.9 % Sodium Chloride Flush 3 ML SYRINGE IVFLUSH (18:45)
--- NOTE | 2020-12-29 18:46 | PC.NURSE ---
patient a&ox3, cardiac care nurse sinus anisa 60s, 06/10 headache which patient was medicated with tylenol for, relative at bedside, will continue to monitor.
--- NOTE | 2020-12-29 18:53 | MHC.CM.PN ---
CM met with pt and Margarita Butt. Pt is in observation and is employed at [employer].Pt is A&Ox3. Speech is slow and pt seems a bit vague. Pt states she still feels a bit off. States she is depressed. Pt does not wish to talk further. Lives with John. Uses no DME and has no services. HCP reviewed, completed and signed. HCP/Kelly Butt ([phone]). ? PT evaluation. D/C plan is home without services, pending PT recommendations. Transportation provided by [facility]. CM to follow for d/c needs.
--- NOTE | 2020-12-29 18:53 | PC.NURSE ---
school secretary walking to nurses to let her know to call ed for report
--- NOTE | 2020-12-29 19:33 | PC.NURSE ---
report given to floor
[2020-12-29 20:02] VITALS: BP 114/67; PULSE 55; RESP 20; TEMP 36.9; O2SAT 90
[2020-12-29] MEDS: traZODone HCL 100 MG TABLET PO (20:23)
[2020-12-29 23:43] VITALS: BP 98/53; PULSE 54; RESP 14; TEMP 36.6; O2SAT 94
--- NOTE | 2020-12-29 23:58 | PM.EVENT ---
Event Note Date of Service: 12/29/20 Event Note: Hr in the 40s. pt sleeping. asymptomatic. meds reviewed not on any AV blockers. continue to monitor
[2020-12-30] MEDS: 0.9 % Sodium Chloride Flush 3 ML SYRINGE IVFLUSH ×2 (00:35→09:55)
[2020-12-30 03:16] VITALS: BMI 28.9
[2020-12-30 03:43] VITALS: BP 121/62; PULSE 56; RESP 12; TEMP 36.6; O2SAT 96
[2020-12-30 07:25] LABS: Hematocrit 36.4 % (37-47); Hemoglobin 12.2 g/dl (12.0-16.0); Mean Corpuscular HGB Conc 33.5 g/dl (31.0-35.0); Mean Corpuscular Hemoglobin 31.6 pg (27.0-33.0); Mean Corpuscular Volume 94.3 fL (80-98); Mean Platelet Volume 10.6 fL (9.4-12.3); Platelet Count 251 X10*3/uL (160-400); Red Blood Count 3.86 X10*6/uL (4.20-5.50); White Blood Count 7.6 X10*3/uL (4.8-10.8)
[2020-12-30 07:41] VITALS: BP 107/61; PULSE 53; RESP 18; TEMP 36.8; O2SAT 95
[2020-12-30 07:51] LABS: Alanine Aminotransferase 13 U/L (0-31); Albumin Level 3.8 g/dL (3.5-5.0); Alkaline Phosphatase 65 U/L (39-117); Anion Gap 13 (12-20); Aspartate Amino Transferase 11 U/L (5-31); Bilirubin Direct < 0.2 mg/dL (0.0-0.5); Bilirubin Total 0.4 mg/dL (0.0-1.0); Blood Urea Nitrogen 17 mg/dL (9-16); Calcium 8.6 mg/dL (8.4-10.2); Carbon Dioxide 26 mmol/L (22-29); Chloride 107 mmol/L (96-108); Creatinine Clr Calc Pharmacy 90.8; Estimated Glomerular Filt Rate > 60; Glucose Random 84 mg/dL (60-115); Magnesium 2.2 mg/dL (1.6-2.6); Potassium 4.6 mmol/L (3.3-5.1); Sodium 141 mmol/L (135-145); Total Protein 6.3 g/dL (6.5-8.0)
[2020-12-30] MEDS: Cholecalciferol (Vitamin D3) 25 MCG TABLET 50 MCG PO (09:53)
[2020-12-30] MEDS: Aspirin Enteric Coated 81 MG TABLET.DR PO (09:54)
[2020-12-30] MEDS: LORazepam 1 MG TABLET PO (11:03)
--- NOTE | 2020-12-30 11:09 | P.DS_ITS ---
DS: Providers Provider Date of Service: 12/30/20 Date of admission: 12/29/20 15:58 Primary care physician: Indiana Chu MD Consults: 12/29/20 15:57 Consult to Neurology Routine Consulting Provider: [facility] Reason for consultation: left sided parasthesias DS: Diagnosis Discharge Diagnosis (1) Arm paresthesia, left: Status: Acute DS: Medications Discharge Medications Home Medications: Home Medications Medication Instructions Recorded Confirmed trazodone 100 mg tablet 100 mg PO BEDTIME 03/05/20 12/29/20 lorazepam 1 mg tablet 1 mg PO BID PRN 08/24/20 12/29/20 calcium carbonate 500 mg calcium 500 mg PO DAILY 12/29/20 12/29/20 (1,250 mg) tablet (Calcium 500) Previous Rx's Medication Instructions Recorded cholecalciferol (vitamin D3) 50 50 mcg PO DAILY 30 Days #30 tab 09/16/20 mcg (2,000 unit) tablet DS: Summary Hospital Course Hospital Course: Chief Complaint: left sided parasthesias 60F presented with left sided parasthesias. patient reports feeling unwell last couple of days, fatigue, diarrhea. then on day of admission started feeling parasthesias on left side of face and left hand cramping, similar to when she was hypocalcemic s/p parathyroidectomy. she went to urgent care to check labs, at urgent care, they noted left sided facial droop, left upper and lower weakness, therefore, sent to ED to rule out CVA. in ED CTA was negative for acute stroke. symptoms have persisted, no tpa due to being out of time window. Hospital course 60F presented with left sided parasthesias and weakness, underwent head and neck CTA that showed no acute abnormality patient was admitted for observation, seen by Dr. Santamaria from Neurology underwent MRI study that showed no acute abnormality since all symptoms have resolved patient is being discharged home, likely symptoms related to anxiety. In regard to chronic medical problems of anxiety, insomnia and history of parathyroidectomy she has been recommended to continue home med Time Spent with Patient Time attestation: Total time spent providing and/or coordinating discharge services: Discharge coordination time: Greater than 30 minutes Quality: Stroke Does the patient have a stroke diagnosis?: No Physical Exam Vital Signs: Vital Signs: Last Vital Signs Temp 98.3 F 12/30/20 07:41 Pulse 53 12/30/20 07:41 Resp 18 12/30/20 07:41 BP 107/61 12/30/20 07:41 Pulse Ox 95 12/30/20 07:41 Body Mass Index 28.9 General no acute distress. Neck supple no JVD. CVS regular rate rhythm, Respiratory lungs clear to auscultation, no respiratory distress, no wheeze, no rhonchi. Gastrointestinal abdomen soft, nontender, bowel sounds audible,no guarding , no rigidity. Extremities no edema. Neuro nonfocal ,speech clear. Skin no rash DS: Data Data Completed and Pending Labs on day of discharge: Laboratory Results - last 24 hr 12/29/20 12/29/20 12/29/20 12:36 12:42 12:42 WBC 8.1 RBC 4.16 L Hgb 13.2 Hct 39.5 MCV 95.0 MCH 31.7 MCHC 33.4 RDW 13.0 Plt Count 274 MPV 10.1 Immature Gran % (Auto) 0.2 Neut % (Auto) 58.1 Lymph % (Auto) 31.1 [place] % (Auto) 5.4 Eos % (Auto) 4.7 H Baso % (Auto) 0.5 Lymph # (Auto) 2.5 [place] # (Auto) 0.4 Eos # (Auto) 0.4 Baso # (Auto) 0.0 Abs Immat Gran (auto) 0.02 Absolute Neuts (auto) 4.7 Absolute Nucleated RBC 0.000 Nucleated RBC % (auto) 0.0 PT 10.7 Whole Blood PT INR 0.9 Whole Blood INR APTT 36.0 Sodium Potassium Chloride Carbon Dioxide Anion Gap BUN Creatinine Estim Creat Clear Calc Estimated GFR POC Glucose 93 Random Glucose Calcium Magnesium Total Bilirubin Direct Bilirubin AST ALT Alkaline Phosphatase Total Creatine Kinase Troponin I High Sens Total Protein Albumin Urine Color Urine Appearance Urine pH Ur Specific [place] Urine Protein Urine Glucose (UA) Urine Ketones Urine Blood Urine Nitrite Ur Leukocyte Esterase Coronavirus (PCR) Hep Bs Antigen Hep Bs Antibody Hep B Core Total Ab Hepatitis C Antibody HIV 1&2 Ab/P24 Ag 4thGn Influenza Type A (PCR) Influenza Type B (PCR) RSV RNA Qual (PCR) 12/29/20 12/29/20 12/29/20 12:42 12:42 12:51 WBC RBC Hgb Hct MCV MCH MCHC RDW Plt Count MPV Immature Gran % (Auto) Neut % (Auto) Lymph % (Auto) [place] % (Auto) Eos % (Auto) Baso % (Auto) Lymph # (Auto) [place] # (Auto) Eos # (Auto) Baso # (Auto) Abs Immat Gran (auto) Absolute Neuts (auto) Absolute Nucleated RBC Nucleated RBC % (auto) PT Whole Blood PT 12.4 INR Whole Blood INR 1.0 APTT Sodium 142 Potassium 4.4 Chloride 106 Carbon Dioxide 27 Anion Gap 13 BUN 19 H Creatinine 0.78 Estim Creat Clear Calc 81.5 Estimated GFR > 60 POC Glucose Random Glucose 89 Calcium 8.9 Magnesium 2.3 Total Bilirubin Direct Bilirubin AST ALT Alkaline Phosphatase Total Creatine Kinase 75 Troponin I High Sens < 3.5 Total Protein Albumin Urine Color Urine Appearance Urine pH Ur Specific [place] Urine Protein Urine Glucose (UA) Urine Ketones Urine Blood Urine Nitrite Ur Leukocyte Esterase Coronavirus (PCR) Hep Bs Antigen Hep Bs Antibody Hep B Core Total Ab Hepatitis C Antibody HIV 1&2 Ab/P24 Ag 4thGn Influenza Type A (PCR) Influenza Type B (PCR) RSV RNA Qual (PCR) 12/29/20 12/29/20 12/29/20 13:00 14:10 14:10 WBC RBC Hgb Hct MCV MCH MCHC RDW Plt Count MPV Immature Gran % (Auto) Neut % (Auto) Lymph % (Auto) [place] % (Auto) Eos % (Auto) Baso % (Auto) Lymph # (Auto) [place] # (Auto) Eos # (Auto) Baso # (Auto) Abs Immat Gran (auto) Absolute Neuts (auto) Absolute Nucleated RBC Nucleated RBC % (auto) PT Whole Blood PT INR Whole Blood INR APTT Sodium Potassium Chloride Carbon Dioxide Anion Gap BUN Creatinine Estim Creat Clear Calc Estimated GFR POC Glucose 87 Random Glucose Calcium Magnesium Total Bilirubin Direct Bilirubin AST ALT Alkaline Phosphatase Total Creatine Kinase Troponin I High Sens Total Protein Albumin Urine Color Urine Appearance Urine pH Ur Specific [place] Urine Protein Urine Glucose (UA) Urine Ketones Urine Blood Urine Nitrite Ur Leukocyte Esterase Coronavirus (PCR) NEGATIVE Hep Bs Antigen Negative Hep Bs Antibody NONREACTIVE Hep B Core Total Ab Nonreactive Hepatitis C Antibody NonReactive HIV 1&2 Ab/P24 Ag 4thGn Nonreactive Influenza Type A (PCR) NEGATIVE Influenza Type B (PCR) NEGATIVE RSV RNA Qual (PCR) NEGATIVE 12/29/20 12/30/20 12/30/20 14:36 06:28 06:28 WBC 7.6 RBC 3.86 L Hgb 12.2 Hct 36.4 L MCV 94.3 MCH 31.6 MCHC 33.5 RDW 13.0 Plt Count 251 MPV 10.6 Immature Gran % (Auto) Neut % (Auto) Lymph % (Auto) [place] % (Auto) Eos % (Auto) Baso % (Auto) Lymph # (Auto) [place] # (Auto) Eos # (Auto) Baso # (Auto) Abs Immat Gran (auto) Absolute Neuts (auto) Absolute Nucleated RBC 0.000 Nucleated RBC % (auto) 0.0 PT Whole Blood PT INR Whole Blood INR APTT Sodium 141 Potassium 4.6 Chloride 107 Carbon Dioxide 26 Anion Gap 13 BUN 17 H Creatinine 0.70 Estim Creat Clear Calc 90.8 Estimated GFR > 60 POC Glucose Random Glucose 84 Calcium 8.6 Magnesium 2.2 Total Bilirubin 0.4 Direct Bilirubin < 0.2 AST 11 ALT 13 Alkaline Phosphatase 65 D Total Creatine Kinase Troponin I High Sens Total Protein 6.3 L Albumin 3.8 Urine Color YELLOW Urine Appearance HAZY Urine pH 6.0 Ur Specific [place] 1.015 Urine Protein NEG Urine Glucose (UA) NEG Urine Ketones NEG Urine Blood NEG Urine Nitrite NEG Ur Leukocyte Esterase NEG Coronavirus (PCR) Hep Bs Antigen Hep Bs Antibody Hep B Core Total Ab Hepatitis C Antibody HIV 1&2 Ab/P24 Ag 4thGn Influenza Type A (PCR) Influenza Type B (PCR) RSV RNA Qual (PCR) Discharge Plan Discharge Patient Disposition: Home, Self-Care Discharge Diagnosis: Left arm paresthesia Referrals: Indiana Chu MD [Primary Care Provider] - 1 Week Discharge Medications: Continued calcium carbonate [Calcium 500] 500 mg calcium (1,250 mg) Tablet 500 mg PO DAILY RF: 0 trazodone 100 mg tablet 100 mg PO BEDTIME RF: 0 lorazepam 1 mg tablet 1 mg PO BID PRN (Reason: Anxiety) RF: 0 cholecalciferol (vitamin D3) 50 mcg (2,000 unit) tablet 50 mcg PO DAILY 30 Days Qty: 30 RF: 11 Discharge Orders: Discharge Order (Routine); Ordered 12/30/20 Ordered By: Heidy Lay Diet: advance to usual diet Activity on Discharge: As tolerated Stand Alone Forms: Patient Portal Discharge page Care Plan Goals: Left-sided paresthesias resolved all workup negative no acute brain injury found Health Concerns: Continue all home medications as before Plan of Treatment: Follow-up with primary care physician in 1 week Assessment: As above
--- NOTE | 2020-12-30 11:13 | MHC.CM.PN ---
pt dcd home no skilled services orderd by
== END 2020-12-30 12:14 | disposition home or self-care (01) ==
LOC: HO.ED 15:49 → HO.IMC 16:37
PROVIDERS: Admitting Provider Internal Medicine; Emergency Provider Emergency Medicine Emergency Medical Services; PCP Internal Medicine; Visit Provider Hospitalist
DX: R20.2 Paresthesia of skin (principal); R29.810 Facial weakness; E21.3 Hyperparathyroidism, unspecified; M85.80 Other specified disorders of bone density and structure, unspecified site; I10 Essential (primary) hypertension; E66.9 Obesity, unspecified; E55.9 Vitamin D deficiency, unspecified; F41.8 Other specified anxiety disorders; Z71.6 Tobacco abuse counseling; Z90.710 Acquired absence of both cervix and uterus; Z90.79 Acquired absence of other genital organ(s); Z90.722 Acquired absence of ovaries, bilateral; Z98.84 Bariatric surgery status; Z88.8 Allergy status to other drugs, medicaments and biological substances; Z79.899 Other long term (current) drug therapy
CPT/HCPCS: 0241U; 36415; 70450; 70496; 70498; 70551; 71045; 80048; 80076; 81003; 82550; 82947; 83735; 84484; 85025; 85027; 85610; 85730; 86803; 93005; 96374; 99219; 99285; J2060; Q9967

== ENCOUNTER 2021-01-01 12:08 | Emergency (ER) | payer OTHER, SELFPAY ==
[2021-01-01 12:18] VITALS: BP 137/80; PULSE 75; RESP 18; TEMP 37; O2SAT 95; BMI 28.2
--- NOTE | 2021-01-01 12:57 | ED.NEUROSD ---
HPI - Neuro Symptoms/Deficit General Chief Complaint: General Medical Stated Complaint: tingling and numbness left arm Time Seen by Provider: 01/01/21 12:56 Source: patient and old records reviewed Mode of arrival: ambulatory Limitations: no limitations History of Present Illness HPI Narrative: 60 yo female hx of malabsorption post bariatric surgery, anxiety, s/p parathyroidectomy just DC on 12/30 following negative workup for L sided parasthesias and facial droop - MRI negative, states symptoms returned Monday and her PCP referred her back here Onset (ago): day(s) () Location: left face, left arm and left leg History of same: Yes Severity: moderate Quality: weak, numb and tingling Relieving factors: none Exacerbating factors: none Context: gradual onset On Anticoagulants: No Associated symptoms: denies other symptoms Treatments Prior to Arrival: none Related Data Home Medications Medication Instructions Recorded Confirmed trazodone 100 mg tablet 100 mg PO BEDTIME 03/05/20 12/29/20 lorazepam 1 mg tablet 1 mg PO BID PRN 08/24/20 12/29/20 calcium carbonate 500 mg calcium 500 mg PO DAILY 12/29/20 12/29/20 (1,250 mg) tablet (Calcium 500) Previous Rx's Medication Instructions Recorded cholecalciferol (vitamin D3) 50 50 mcg PO DAILY 30 Days #30 tab 09/16/20 mcg (2,000 unit) tablet doxycycline hyclate 100 mg capsule 100 mg PO BID 10 Days #20 cap 01/01/21 prednisone 20 mg tablet 40 mg PO DAILY 5 Days #10 tab 01/01/21 Allergies Allergy/AdvReac Type Severity Reaction Status Date / Time No Known Allergies Allergy Verified 12/29/20 12:21 [No Known Allergies*] varenicline AdvReac Unknown suicidal Verified 12/29/20 12:21 ideations Review of Systems Review of Systems: Constitutional : No Weight loss, No Fever, No Chills, No Fatigue, No Malaise ENT/Mouth : No sore throat, No Rhinorrhea Eyes: No Eye Pain, No Swelling, No Redness Cardiovascular : No Chest Pain, No SOB, No Dyspnea on Exertion, No Orthopnea, No Edema, No Palpitations Respiratory : No Cough, No Sputum, No Wheezing Gastrointestinal : No Nausea, No Vomiting, No Diarrhea, No Constipation, No abdominal Pain, No Hematochezia, No Melena Genitourinary : No Dysuria, No Urinary Frequency, No Hematuria, Musculoskeletal : No joint pain, No Myalgias, No Joint Swelling Skin : No Skin Lesions, No rash Neuro : pos Weakness, pos Numbness, No Dizziness, No Headache Psych : No Anxiety/Panic, No Depression Heme/Lymph: No Bruising, No Bleeding,No Lymphadenopathy Endocrine : No Polyuria, No Polydipsia All other systems reviewed and are negative ON LICENSE OF [facility] Past Medical History Attestation statement: The following information was validated with the patient. 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 History of primary hyperparathyroidism Hypertension Obesity Osteopenia Overweight Vitamin D deficiency Surgical History H/O bilateral breast reduction surgery History of adjustable gastric banding History of colonoscopy History of esophagogastroduodenoscopy (EGD) History of parathyroidectomy History of repair of hiatal hernia History of total abdominal hysterectomy and bilateral salpingo-oophorectomy S/P laparoscopic sleeve gastrectomy Family History Family History Father Emphysema of lung Myocardial infarction Cardiovascular disease Hypertension Mother Hypertension Diabetes Arthritis of knee Brother No problems noted. Sister No problems noted. Sister No problems noted. Sister No problems noted. Son No problems noted. Daughter No problems noted. Daughter No problems noted. Daughter No problems noted. Paternal Grandfather Colon cancer Maternal Aunt Lymphoma Breast cancer Paternal Grandmother Rheumatoid arthritis Social History Social History Alcohol intake: never Patient Tobacco Use Status: Former Tobacco user Quit Date: 12/21/2020 Tobacco use type: Cigar Cigarettes Per Day: 6 Years Smoked: 40 Second Hand Smoke Exposure: No Substance Use Type: Marijuana Advance Directives: Yes Advance Directives Information Provided: Yes Advance Directives on File: No Patient : No service: No Current occupational status: employed Physical Exam Vital Signs: Vital Signs: Last Vital Signs Temp 98.6 F 01/01/21 12:18 Pulse 75 01/01/21 12:18 Resp 18 01/01/21 12:18 BP 137/80 01/01/21 12:18 Pulse Ox 95 01/01/21 12:18 Body Mass Index 28.2 Appearance: Alert. Oriented X3. No acute distress. Eyes: Pupils equal, round and reactive to light. L eye ptosis ENT: Pharynx normal. Neck: Normal inspection. Neck supple. CVS: Normal heart rate and rhythm. Pulses normal. Respiratory: No respiratory distress. Breath sounds normal. Abdomen: Soft and non-tender. Skin: Skin warm and dry. Normal skin color. Normal skin turgor. Extremities: No lower extremity edema. No calf ttp Neuro: Oriented X 3. LUE and LLE reports tingling, L face feels numb to the touch, ptosis of L eye Course Course Course Narrative: applied ice to L eye and ptosis drastically improved at 2 min jluis discussed with Neurology - would send off labs and refer to PCP, nothing acute to do further at this time, doesn't make sense for MG will start on steroids and doxy just in case until follow up MDM - Neuro Symptoms/Deficit MDM Narrative Medical decision making narrative: 60 yo female hx of malabsorption post bariatric surgery, anxiety, s/p parathyroidectomy just DC on 12/30 following negative workup for L sided parasthesias and facial droop - MRI negative, states symptoms returned Monday and her PCP referred her back here. Will repeat labs and lyme test, discuss with Neurology. MG seems unusual but given her ptosis did improve with ice it is a consideration Lab Data Result diagrams: 01/01/21 13:42 01/01/21 13:42 Labs: Lab Results 01/01/21 01/01/21 Range/Units 13:42 13:42 WBC 9.1 (4.8-10.8) X10*3/uL RBC 3.97 L (4.20-5.50) X10*6/uL Hgb 12.4 (12.0-16.0) g/dl Hct 37.3 (37-47) % MCV 94.0 (80-98) fL MCH 31.2 (27.0-33.0) pg MCHC 33.2 (31.0-35.0) g/dl RDW 13.1 (11.0-16.0) % Plt Count 254 (160-400) X10*3/uL MPV 10.1 (9.4-12.3) fL Immature Gran % (Auto) 0.1 (0.0-0.4) % Neut % (Auto) 57.3 (45-73) % Lymph % (Auto) 33.3 (20-40) % [place] % (Auto) 4.9 (2-11) % Eos % (Auto) 4.0 (0-4) % Baso % (Auto) 0.4 (0-2) % Lymph # (Auto) 3.0 (1.2-4.9) X10*3/uL [place] # (Auto) 0.5 (0.1-1.2) X10*3/uL Eos # (Auto) 0.4 (0.0-0.4) X10*3/uL Baso # (Auto) 0.0 (0.0-0.2) X10*3/uL Abs Immat Gran (auto) 0.01 (0.00-0.03) X10*3/uL Absolute Neuts (auto) 5.2 (2.0-8.3) X10*3/uL Absolute Nucleated RBC 0.000 (0.0-0.012) X10*3/uL Nucleated RBC % (auto) 0.0 (0.0-0.2) /100WBC Sodium 141 (135-145) mmol/L Potassium 4.1 (3.3-5.1) mmol/L Chloride 107 (96-108) mmol/L Carbon Dioxide 26 (22-29) mmol/L Anion Gap 12 (12-20) BUN 21 H (9-16) mg/dL Creatinine 0.76 (0.5-1.4) mg/dL Estim Creat Clear Calc 82.6 Estimated GFR > 60 Random Glucose 94 (60-115) mg/dL Calcium 8.9 (8.4-10.2) mg/dL Magnesium 2.1 (1.6-2.6) mg/dL Discharge Plan Discharge Clinical Impression: Paresthesia Ptosis Qualifiers: Laterality: left Qualified Code(s): H02.402 - Unspecified ptosis of left eyelid Patient Disposition: Home, Self-Care Instructions: Paresthesia (ED), Ptosis (ED) Additional Instructions: return to ED for any worsening symptoms or concerns MRI was wnl, discussed with Neurology recommended outpatient follow up start on doxy and prednisone until lyme test back Prescriptions: New doxycycline hyclate 100 mg capsule 100 mg PO BID 10 Days Qty: 20 RF: 0 prednisone 20 mg tablet 40 mg PO DAILY 5 Days Qty: 10 RF: 0 No Action calcium carbonate [Calcium 500] 500 mg calcium (1,250 mg) Tablet 500 mg PO DAILY RF: 0 trazodone 100 mg tablet 100 mg PO BEDTIME RF: 0 lorazepam 1 mg tablet 1 mg PO BID PRN (Reason: Anxiety) RF: 0 cholecalciferol (vitamin D3) 50 mcg (2,000 unit) tablet 50 mcg PO DAILY 30 Days Qty: 30 RF: 11 Referrals: Indiana Chu MD [Primary Care Provider] - 3 days (follow up Monday)
[2021-01-01 13:47] LABS: MANUAL DIFF FLAG NO
[2021-01-01 13:49] LABS: Basophils Percent Auto 0.4 % (0-2); Eosinophils Absolute Auto 0.4 X10*3/uL (0.0-0.4); Hematocrit 37.3 % (37-47); Hemoglobin 12.4 g/dl (12.0-16.0); Imm Gran Abs Auto 0.01 X10*3/uL (0.00-0.03); Imm Gran Pct Auto 0.1 % (0.0-0.4); Lymphocytes Percent Auto 33.3 % (20-40); Mean Corpuscular HGB Conc 33.2 g/dl (31.0-35.0); Mean Corpuscular Hemoglobin 31.2 pg (27.0-33.0); Mean Platelet Volume 10.1 fL (9.4-12.3); Monocytes Absolute Auto 0.5 X10*3/uL (0.1-1.2); Monocytes Percent Auto 4.9 % (2-11); Neutrophils Absolute Auto 5.2 X10*3/uL (2.0-8.3); Neutrophils Percent Auto 57.3 % (45-73); Platelet Count 254 X10*3/uL (160-400); Red Blood Count 3.97 X10*6/uL (4.20-5.50); Red Cell Distribution Width 13.1 % (11.0-16.0); White Blood Count 9.1 X10*3/uL (4.8-10.8)
[2021-01-01 14:12] LABS: Anion Gap 12 (12-20); Blood Urea Nitrogen 21 mg/dL (9-16); Calcium 8.9 mg/dL (8.4-10.2); Carbon Dioxide 26 mmol/L (22-29); Chloride 107 mmol/L (96-108); Creatinine Clr Calc Pharmacy 82.6; Estimated Glomerular Filt Rate > 60; Glucose Random 94 mg/dL (60-115); Magnesium 2.1 mg/dL (1.6-2.6); Potassium 4.1 mmol/L (3.3-5.1); Sodium 141 mmol/L (135-145)
[2021-01-02 21:16] LABS: Lyme Abs Screen <0.90 index
== END 2021-01-01 15:15 | disposition home or self-care (01) ==
PROVIDERS: Emergency Provider Emergency Medicine; PCP Internal Medicine
DX: H02.402 Unspecified ptosis of left eyelid (principal); R20.2 Paresthesia of skin; F12.90 Cannabis use, unspecified, uncomplicated; Z98.84 Bariatric surgery status; F17.200 Nicotine dependence, unspecified, uncomplicated; Z71.6 Tobacco abuse counseling; Z79.899 Other long term (current) drug therapy
CPT/HCPCS: 36415; 80048; 83735; 85025; 86617; 86618; 99283; 99284

== ENCOUNTER 2021-02-25 07:00 | Outpatient (RCR) | payer OTHER, SELFPAY ==
--- NOTE | 2021-01-29 12:45 | MHC.PT.EP ---
[facility] [place] Office [place] Office [place] Office [address] Raya Maldonado [address] [phone] F: [phone] F: [phone] F: [phone] F: [phone] Physical Therapy Plan of Care Date of Evaluation: Date of Surgery: N/A Diagnosis: Cervical spondylosis w/ radiculopathy Assessment: Pt is a 61 year old female who reports to therapy with signs and symptoms consistent with cervical spondylosis with radiculopathy. Self reported limitations include pain while working, numbness/tingling into the arm, bending her head down, and concentrating at work. Upon examination, impairments include limited cervical flexion/lateral flexion, poor posture, weakness in bilateral shoulders and inflammation in the supraclavicular fossa. Pt shows good rehab potential 2* to her age and eagerness to get better. Pt will benefit from skilled PT to decrease neck tension, decrease inflammation, increase shoulder/postural strength and postural patient education. She will be seen 2x/week for 4 weeks and will be reassessed at 4 weeks to see if further treatment is necessary. Frequency and Duration: The patient will be seen 2x/week for 4 weeks Short Term Goals: 1. Pt will be I in HEP in 2 weeks in order to maximize benefits of therapy. 2. Pt will increase cervical ROM to WFL in 2 weeks in order to be able to complete work activities without pain. [facility] Goals: 1. Pt will be able to complete computer tasks at work for >30 minutes with <2/10 pain in 4 weeks in order to complete the work day with less pain. 2. Pt will decrease score on neck pain disability questionnaire by at least 19% in 4 weeks in order to demonstrate ability to function in her daily life. 3. Pt will increase shoulder mmt by atleast 1 grade in 4weeks to demonstrate an increase in strength. Treatment Plan: Modalities to reduce pain, spasms and effusion. Manual therapy to restore motion and function. Therapeutic exercise to improve strength and flexibility. Neuromuscular re-education for posture and balance. Therapeutic activities to return to functional activities of daily living. Electronically signed by: Opal Murphy PT, DPT Please sign and return to therapist. Thank you for your referral.
--- NOTE | 2021-04-02 12:23 | MHC.PT.DC ---
[facility] [place] Office [place] Office [place] Office [address] Raya Maldonado [address] [phone] F: [phone] F: [phone] F: [phone] F: [phone] Physical Therapy Discharge Report Diagnosis: Cervical spondylosis w/ radiculopathy Date of Surgery: N/A Date of Evaluation: 01/29/21 Date of Discharge: Treatments to Date: 8 Cancellations to Date: No Shows to Date: 1 Discharge Status: Improved Function Independent with HEP Discharge Summary: At last attended visit pt had overall improvement with residual central cerv/thoracic junction px. DICKSON arises with change in cerv flexion when supine. She is independent with HEP and will attempt home program at this time for self management. Electronically signed by: Opal Murphy PT, DPT Please sign and return to therapist. Thank you for your referral.
== END 2021-04-02 12:24 | disposition home or self-care (01) ==
LOC: HO.PT 07:00
PROVIDERS: PCP Internal Medicine; Visit Provider Internal Medicine
DX: M47.22 Other spondylosis with radiculopathy, cervical region (principal)
CPT/HCPCS: 97110; 97140; 97162; 97530

== ENCOUNTER 2021-04-12 06:22 | Outpatient (REF) | payer OTHER, SELFPAY ==
[2021-04-12 07:39] LABS: Alanine Aminotransferase 15 U/L (0-31); Albumin Level 4.3 g/dL (3.5-5.0); Alkaline Phosphatase 83 U/L (39-117); Anion Gap 13 (12-20); Aspartate Amino Transferase 13 U/L (5-31); Bilirubin Total 0.7 mg/dL (0.0-1.0); Blood Urea Nitrogen 16 mg/dL (9-16); Carbon Dioxide 28 mmol/L (22-29); Chloride 106 mmol/L (96-108); Cholesterol 245 mg/dL; Estimated Glomerular Filt Rate > 60; Glucose Fasting 93 mg/dL (60-99); HDL Cholesterol 47 mg/dL; LDL Cholesterol Calculated 168 mg/dl; Potassium 4.5 mmol/L (3.3-5.1); Sodium 142 mmol/L (135-145); Triglycerides 152 mg/dL
[2021-04-12 07:59] LABS: Vitamin D 25-OH Total 23.6 ng/mL (>30)
== END 2021-04-12 06:23 | disposition home or self-care (01) ==
LOC: HO.LAB 06:22
PROVIDERS: PCP Internal Medicine; Visit Provider Internal Medicine
DX: Z00.01 Encounter for general adult medical examination with abnormal findings (principal); E55.9 Vitamin D deficiency, unspecified; E78.5 Hyperlipidemia, unspecified; K91.2 Postsurgical malabsorption, not elsewhere classified; M85.80 Other specified disorders of bone density and structure, unspecified site; Z90.3 Acquired absence of stomach [part of]; Z98.84 Bariatric surgery status; Z90.09 Acquired absence of other part of head and neck
CPT/HCPCS: 36415; 80053; 80061; 82306

== ENCOUNTER 2021-04-28 19:19 | Outpatient (REF) | payer OTHER, SELFPAY | END 2021-04-28 19:20 | disposition home or self-care (01) | LOC: HO.LNP 19:19 | PROVIDERS: Visit Provider Physician Assistant Medical | DX: N39.0 Urinary tract infection, site not specified (principal) | CPT/HCPCS: 87086 ==

== ENCOUNTER 2021-05-05 11:16 | Outpatient (REF) | payer OTHER, SELFPAY ==
[2021-05-05 12:25] LABS: Alanine Aminotransferase 14 U/L (0-31); Albumin Level 4.2 g/dL (3.5-5.0); Alkaline Phosphatase 78 U/L (39-117); Anion Gap 12 (12-20); Aspartate Amino Transferase 13 U/L (5-31); Bilirubin Total 0.2 mg/dL (0.0-1.0); Blood Urea Nitrogen 20 mg/dL (9-16); Calcium 9.3 mg/dL (8.4-10.2); Carbon Dioxide 27 mmol/L (22-29); Chloride 107 mmol/L (96-108); Estimated Glomerular Filt Rate > 60; Glucose Random 109 mg/dL (60-115); Sodium 142 mmol/L (135-145); Total Protein 7.1 g/dL (6.5-8.0)
[2021-05-05 12:34] LABS: Vitamin D 25-OH Total 21.6 ng/mL (>30)
[2021-05-05 12:46] LABS: Appearance Urine CLEAR; Color Urine YELLOW; Glucose Urine UA NEG (NEG); Leukocyte Esterase Urine NEG (NEG); Nitrite Urine NEG (NEG); Specific Gravity - Urine >= 1.030 (1.005-1.025); Urine Blood NEG (NEG); Urine Ketones NEG (NEG); Urine Protein NEG (NEG-TRACE)
[2021-05-07 16:31] LABS: Calcium (PTHI) 9.4 mg/dL (8.6-10.4); PTHI 47 pg/mL (14-64)
[2021-05-12 22:15] LABS: Alkaline Phosphatase Bone 14.3 mcg/L (5.6-29.0)
== END 2021-05-05 11:17 | disposition home or self-care (01) ==
LOC: HO.LAB 11:16
PROVIDERS: Internal Medicine Endocrinology, Diabetes & Metabolism; Visit Provider Internal Medicine
DX: E21.3 Hyperparathyroidism, unspecified (principal); M85.89 Other specified disorders of bone density and structure, multiple sites; N39.0 Urinary tract infection, site not specified
CPT/HCPCS: 36415; 80053; 81003; 82306; 83970; 84075

== ENCOUNTER 2021-06-01 09:18 | Outpatient (REF) | payer OTHER, SELFPAY ==
[2021-06-03 22:52] LABS: HPV mRNA E6/E7 rflx Not Detected (Not Detected)
== END 2021-06-01 09:19 | disposition home or self-care (01) ==
LOC: HO.LAB 09:18
PROVIDERS: PCP Internal Medicine; Visit Provider Advanced Practice Midwife
DX: Z01.411 Encounter for gynecological examination (general) (routine) with abnormal findings (principal); Z11.51 Encounter for screening for human papillomavirus (HPV); N89.0 Mild vaginal dysplasia; Z91.89 Other specified personal risk factors, not elsewhere classified
CPT/HCPCS: 87624; 88142

== ENCOUNTER 2021-06-08 11:19 | Outpatient (REF) | payer OTHER, SELFPAY ==
[2021-06-08 14:14] LABS: Anion Gap 13 (12-20); Blood Urea Nitrogen 16 mg/dL (9-16); Calcium 9.3 mg/dL (8.4-10.2); Carbon Dioxide 30 mmol/L (22-29); Chloride 105 mmol/L (96-108); Estimated Glomerular Filt Rate > 60; Glucose Random 89 mg/dL (60-115); Potassium 4.4 mmol/L (3.3-5.1); Sodium 144 mmol/L (135-145)
[2021-06-09 21:36] LABS: EBV-VCA IgM Ab <36.00 U/mL
[2021-06-10 05:27] LABS: Lyme Abs Screen <0.90 index
== END 2021-06-08 11:20 | disposition home or self-care (01) ==
LOC: HO.HMGCLDS 11:19
PROVIDERS: Visit Provider Internal Medicine
DX: G51.0 Bell's palsy (principal); R55 Syncope and collapse; R51.9 Headache, unspecified
CPT/HCPCS: 36415; 80048; 86617; 86618; 86664; 86665

== ENCOUNTER 2021-08-13 09:48 | Emergency (ER) | payer OTHER, SELFPAY ==
--- NOTE | ~2021-08-13 | XR_ITS ---
EXAMINATION: XR CHEST CLINICAL INFORMATION: Chest pain COMPARISON: None TECHNIQUE: Frontal view of the chest was obtained. FINDINGS: No significant abnormality is noted involving the heart, lungs, mediastinum, bony thorax or soft tissues. XR/XR chest 1V IMPRESSION: Unremarkable chest examination.
[2021-08-13 10:00] VITALS: BP 139/80; PULSE 64; RESP 14; TEMP 36.6; O2SAT 96; BMI 28.6
--- NOTE | 2021-08-13 10:05 | ECG_ITS ---
Test Reason : CHEST PAIN Blood Pressure : / mmHG Vent. Rate : 063 BPM Atrial Rate : 063 BPM P-R Int : 164 ms QRS Dur : 086 ms QT Int : 436 ms P-R-T Axes : 041 -09 008 degrees QTc Int : 446 ms Normal sinus rhythm Minimal voltage criteria for LVH, may be normal variant ( R in aVL ) Borderline ECG When compared with ECG of 29-DEC-2020 13:05, No significant change was found Referred By: Yuko Summers Electronically Signed By:JIMMY FERNÁNDEZ MD
--- NOTE | 2021-08-13 10:10 | ED_ITS ---
HPI - Chest Pain General Chief Complaint: Chest Pain Stated Complaint: Chest pain/L arm numbness Time Seen by Provider: 08/13/21 09:53 Source: patient and old records reviewed Mode of arrival: ambulatory Limitations: no limitations History of Present Illness HPI narrative: under sig stress currently, on ativan TID, going on FMLA, headed to [employer] program at [place] [employer] [facility] complaint: chest pain Pertinent past history: other (anxiety) Onset (ago): month(s) (1 month but worse last night she event vomited) Timing of current episode: constant Prior episodes: Yes Onset: during rest and during exertion Pain location: substernal Pain radiation: left arm Severity: moderate Quality: heaviness Relieving factors: nothing Exacerbating factors: stress Context: other (significant life stress ) Associated symptoms: nausea, vomiting and dyspnea Related Data Home Medications Medication Instructions Recorded Confirmed trazodone 100 mg tablet 100 mg PO BEDTIME 06/01/21 07/01/21 duloxetine 20 mg capsule,delayed 20 mg PO BID 06/25/21 07/01/21 release lorazepam 1 mg tablet 1 mg PO BID-TID PRN tab 06/25/21 07/01/21 Previous Rx's Medication Instructions Recorded cholecalciferol (vitamin D3) 50 50 mcg PO DAILY 30 Days #30 tab 09/16/21 mcg (2,000 unit) tablet nicotine 21 mg/24 hr daily 1 patch TRANSDERMAL DAILY #28 ea 08/04/21 transdermal patch Allergies Allergy/AdvReac Type Severity Reaction Status Date / Time No Known Allergies Allergy Verified 07/01/21 14:56 [No Known Allergies*] varenicline AdvReac Unknown suicidal Verified 07/01/21 14:56 ideations Review of Systems Review of Systems: Constitutional : No Weight loss, No Fever, No Chills ENT/Mouth : No sore throat, No Rhinorrhea Eyes: No Eye Pain, No Swelling Cardiovascular : pos Chest Pain, pos SOB, no Dyspnea on Exertion, No Orthopnea, No Edema, No Palpitations Respiratory : No Cough, No Sputum Gastrointestinal : pos Nausea, pos 1 episode Vomiting, No Diarrhea, No abdominal Pain, No Hematochezia, No Melena Genitourinary : No Dysuria, No Urinary Frequency Musculoskeletal : No joint pain, No Myalgias, No Joint Swelling Skin : No Skin Lesions, No rash Neuro : No Weakness, No Numbness, No Dizziness, No Headache Psych : No Anxiety/Panic, No Depression Heme/Lymph: No Bruising, No Lymphadenopathy Endocrine : No Polyuria, No Polydipsia All other systems reviewed and are negative [facility] Past Medical History Attestation statement: The following information was validated with the patient. 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 History of primary hyperparathyroidism Hx of Rizzo's palsy Hx of precordial chest pain Hypertension Obesity Osteopenia Overweight Supraclavicular fossa fullness Vitamin D deficiency Surgical History H/O bilateral breast reduction surgery History of adjustable gastric banding History of colonoscopy History of esophagogastroduodenoscopy (EGD) History of parathyroidectomy History of repair of hiatal hernia History of total abdominal hysterectomy and bilateral salpingo-oophorectomy S/P laparoscopic sleeve gastrectomy Family History Family History Father Emphysema of lung Myocardial infarction Cardiovascular disease Hypertension Mental health disorder Mother Hypertension Diabetes Arthritis of knee Colon cancer Brother No problems noted. Sister No problems noted. Sister No problems noted. Sister No problems noted. Son Substance use disorder Mental health disorder Daughter No problems noted. Daughter No problems noted. Daughter No problems noted. Paternal Grandfather Colon cancer Maternal Aunt Lymphoma Breast cancer Paternal Grandmother Rheumatoid arthritis Social History Social History Housing: House Alcohol intake: current Alcohol intake frequency: does not drink Patient Tobacco Use Status: Current everyday Tobacco user Tobacco use type: Cigarette Cigarettes Per Day: 5 Smoked in Last 30 Days: Yes e-Cigarette/Vaping Use: Never Used Use of substances other than those prescribed or required for medical reasons: No Substance Use Type: Marijuana Advance Directives: No Advance Directives Information Provided: No service: No Current occupational status: employed Sexual orientation: Straight/Heterosexual Gender identity: Female Physical Exam Vital Signs: Vital Signs: Last Vital Signs Temp 97.8 F 08/13/21 10:00 Pulse 64 08/13/21 10:00 Resp 14 08/13/21 10:00 BP 139/80 08/13/21 10:00 Pulse Ox 96 08/13/21 10:00 BMI result Body Mass Index 28.6 Appearance: Alert. Oriented X3. No acute distress. Eyes: Pupils equal, round and reactive to light. ENT: Pharynx normal. Chronic L eye ptosis Neck: Normal inspection. Neck supple. CVS: Normal heart rate and rhythm. Pulses normal. Respiratory: No respiratory distress. Breath sounds normal. Abdomen: Soft and non-tender. Skin: Skin warm and dry. Normal skin color. Normal skin turgor. Extremities: No lower extremity edema. No calf ttp Neuro: Oriented X 3. No motor deficit. No sensory deficit. Course Course Course Narrative: EKG nonischemic, trop flat, CXR negative MDM - Chest Pain MDM Narrative Medical decision making narrative: 61 yo female with severe debilitating anxiety, HLD, parathyriodectomy, rizzo's palsy, here with chest pain x 1 month but last night it worsened. She thinks it could be stress. Has had it for 1 month+ doubt dissection or PE at this time will need EKG, troponin x 1, CXR and PO ativan. She has good outpatient follow up and support for her anxiety. Dispo per results and findings. Lab Data Result diagrams: 08/13/21 10:26 Labs: Lab Results 08/13/21 08/13/21 Range/Units 10:26 10:26 Sodium 139 (135-145) mmol/L Potassium 4.0 (3.3-5.1) mmol/L Chloride 103 (96-108) mmol/L Carbon Dioxide 29 (22-29) mmol/L Anion Gap 11 L (12-20) BUN 18 H (9-16) mg/dL Creatinine 0.69 (0.5-1.4) mg/dL Estim Creat Clear Calc 93.6 Estimated GFR > 60 Random Glucose 129 H (60-115) mg/dL Calcium 9.7 (8.4-10.2) mg/dL Magnesium 2.2 (1.6-2.6) mg/dL Total Bilirubin 0.5 (0.0-1.0) mg/dL Direct Bilirubin < 0.2 (0.0-0.5) mg/dL AST 13 (5-31) U/L ALT 17 (0-31) U/L Alkaline Phosphatase 78 (39-117) U/L Troponin I High Sens < 3.5 (<3.5-17.0) ng/L Total Protein 7.1 (6.5-8.0) g/dL Albumin 4.3 (3.5-5.0) g/dL Lipase 13 (8-78) U/L ECG Data ECG #1: Attestation: I personally reviewed and interpreted this ECG as follows: ECG interpretation date: 08/13/21 ECG interpretation time: 10:11 Interpretation: Rate: 63 Rhythm: NSR [place]: left, LVH Normal P waves. Normal CHYNA. Normal QRS complex. ST T wave : normal no YAHAIRA qTC: normal prior studies: no acute ischemia The study has been interpreted contemporaneously by me. . Discharge Plan Discharge Clinical Impression: Chest pain Patient Disposition: Home, Self-Care Instructions: Chest Pain (ED) Additional Instructions: return to ED for any worsening symptoms or concerns chest xray, heart markers negative, please follow up with your doctor Prescriptions: No Action nicotine 21 mg/24 hr patch 24 hour 1 patch transdermal DAILY Qty: 28 0RF duloxetine 20 mg capsule,delayed release(DR/EC) 20 mg PO BID 0RF lorazepam 1 mg tablet 1 mg PO BID-TID PRN (Reason: Anxiety) 0RF trazodone 100 mg tablet 100 mg PO BEDTIME 0RF cholecalciferol (vitamin D3) 50 mcg (2,000 unit) tablet 50 mcg PO DAILY 30 Days Qty: 30 11RF Referrals: Indiana Chu MD [Primary Care Provider] - 3 days Stand Alone Forms: Work/School Release
[2021-08-13] MEDS: LORazepam 1 MG TABLET PO (10:13)
[2021-08-13 11:07] LABS: Alanine Aminotransferase 17 U/L (0-31); Albumin Level 4.3 g/dL (3.5-5.0); Alkaline Phosphatase 78 U/L (39-117); Anion Gap 11 (12-20); Aspartate Amino Transferase 13 U/L (5-31); Bilirubin Direct < 0.2 mg/dL (0.0-0.5); Bilirubin Total 0.5 mg/dL (0.0-1.0); Blood Urea Nitrogen 18 mg/dL (9-16); Calcium 9.7 mg/dL (8.4-10.2); Carbon Dioxide 29 mmol/L (22-29); Chloride 103 mmol/L (96-108); Creatinine Clr Calc Pharmacy 93.6; Estimated Glomerular Filt Rate > 60; Glucose Random 129 mg/dL (60-115); Lipase 13 U/L (8-78); Magnesium 2.2 mg/dL (1.6-2.6); Sodium 139 mmol/L (135-145); Total Protein 7.1 g/dL (6.5-8.0)
[2021-08-13 11:13] LABS: Troponin-I High Sensitivity < 3.5 ng/L (<3.5-17.0)
[2021-08-13 11:23] LABS: Basophils Absolute Auto 0.1 X10*3/uL (0.0-0.2); Basophils Percent Auto 0.7 % (0-2); Eosinophils Absolute Auto 0.3 X10*3/uL (0.0-0.4); Eosinophils Percent Auto 3.3 % (0-4); Hematocrit 39.6 % (37.0-47.0); Hemoglobin 13.2 g/dl (12.0-16.0); Imm Gran Abs Auto 0.03 X10*3/uL (0.00-0.03); Imm Gran Pct Auto 0.3 % (0.0-0.4); Lymphocytes Absolute Auto 2.7 X10*3/uL (1.2-4.9); Lymphocytes Percent Auto 26.4 % (20-40); MANUAL DIFF FLAG NO; Mean Corpuscular HGB Conc 33.3 g/dl (31.0-35.0); Mean Corpuscular Hemoglobin 31.9 pg (27.0-33.0); Mean Corpuscular Volume 95.7 fL (80.0-98.0); Mean Platelet Volume 11.1 fL (9.4-12.3); Monocytes Absolute Auto 0.5 X10*3/uL (0.1-1.2); Neutrophils Absolute Auto 6.5 x10*3/uL (2.0-8.3); Neutrophils Percent Auto 64.3 % (45-73); Platelet Count 291 X10*3/uL (160-400); Red Blood Count 4.14 X10*6/uL (4.20-5.50); Red Cell Distribution Width 13.5 % (11.0-16.0); White Blood Count 10.2 X10*3/uL (4.8-10.8)
== END 2021-08-13 12:21 | disposition home or self-care (01) ==
PROVIDERS: Emergency Provider Emergency Medicine; PCP Internal Medicine
DX: R07.9 Chest pain, unspecified (principal); R20.0 Anesthesia of skin; F17.200 Nicotine dependence, unspecified, uncomplicated; F12.90 Cannabis use, unspecified, uncomplicated; Z98.84 Bariatric surgery status; Z90.3 Acquired absence of stomach [part of]
CPT/HCPCS: 36415; 71045; 80048; 80076; 83690; 83735; 84484; 85025; 93005; 99283; 99284

== ENCOUNTER → 2021-08-24 08:12 | Outpatient (BNVA) | payer OTHER, SELFPAY | PROVIDERS: PCP Internal Medicine; Referring Provider Internal Medicine; Visit Provider Internal Medicine | DX: Z13.89 Encounter for screening for other disorder (principal) ==

== ENCOUNTER → 2021-10-13 07:33 | Outpatient (REF) | payer OTHER, SELFPAY ==
--- NOTE | ~2021-10-13 | NM_ITS ---
EXERCISE MYOCARDIAL PERFUSION STUDY INDICATION: Chest pain, assess for coronary disease and ischemia TECHNIQUE: The patient was brought in for an exercise perfusion study on 10/13/2021. Patient performed exercise as per Jonah protocol and was injected 30 mCi of sestamibi once target heart rate was achieved. Images were obtained using the SPECT gamma camera interlaced with the gating device. Images were obtained in supine position. Resting perfusion study was performed on 10/14/2021. Patient was administered 30 mCi of sestamibi intravenously at rest. Images were then obtained in supine position. Total DLP 110mGy-cm. Images were processed with the software and compared side to side in short axis, horizontal long axis and vertical long axis views. FINDINGS: Raw images were reviewed. The stress perfusion study showed no significant perfusion abnormality. Both uncorrected as well as CT attenuation corrected images were reviewed. The gated study shows normal LV systolic function with calculated LVEF of 74%. LV cavity is normal in size. The gated study shows normal wall thickening and contraction of segments. Resting study shows no significant perfusion abnormality. Gating at rest reveals normal wall motion with ejection fraction at 70%. The findings are consistent with no definite reversible or fixed perfusion defects. NM/NM cardiolite stress test IMPRESSION: 1. Myocardial perfusion imaging study shows likely normal myocardial perfusion. No definitive evidence of any ischemia or infarction. 2. Gated LVEF is 74% during stress and 70% during rest. 3. Transient ischemic dilatation not present. EKG component of the test reported separately.
--- NOTE | 2021-10-13 07:36 | CA_ITS ---
Transthoracic Echocardiogram Patient (Last, First, Middle): Laya Ortiz, Gender: Female Date of : 1960 Age: 61 Procedure Date: 10/13/2021 Procedure Type: Transthoracic Echocardiogram Location: OP Height: 170.18 cm Weight: 81.65 kg BSA: 1.93 m2 Heart Rate: bpm BP: 120 / 75 mmHg Gold And Silver Assayer: YR/TO Referring MD: Davi Barrett MD Lithographic Photographer: Nasim Eden MD Symptoms: R07.2 - Precordial pain Study Quality: Fair ECG Rhythm: Sinus Conclusions: - 1. Normal LV systolic function with pseudonormal filling pattern 2. Normal cardiac valvular Doppler 3. Normal RV systolic pressure 4. No gross pericardial effusion Findings Left Ventricle Normal left ventricular size, thickness, and systolic function. The visually estimated ejection fraction is between 55-60%. Spectral Doppler is indicative of a pseudonormal filling pattern. E/E prime ratio is between 8 and 15 consistent with indeterminate filling pressures. Right Ventricle Normal right ventricular cavity size. There is normal right ventricular systolic function. Atria The left atrium is normal in size. There is lipomatous hypertrophy of the interatrial septum. There is no evidence of interatrial shunt. The right atrium is normal in size. Aortic Valve Normal aortic valve structure and function. There is no aortic valve stenosis. There is no aortic valve regurgitation. Mitral Valve Normal mitral valve structure and function. There is trace mitral valve regurgitation. There is no mitral valve stenosis. Pulmonic Valve The pulmonic valve was not well visualized. Tricuspid Valve Likely normal tricuspid valve structure and function. There is trace tricuspid valve regurgitation. The right ventricular systolic pressure is normal. Normal right atrial pressure. There is no evidence of pulmonary hypertension. Great Vessels All visible segments of the aorta are normal in size. The pulmonary artery was not well visualized. Venous The inferior vena cava is normal in size and collapses greater than 50% with inspiration. Pericardium/Pleural There is no evidence of pericardial effusion. Prior Study Comparison No prior study available for comparison. Measurements 2D Linear Measurements IVSd: 1.05 0.6-0.9/0.6-1.0 cm LVIDd: 5.06 3.9-5.3/4.2-5.9 cm LVIDd Index: 2.62 2.4-3.2/2.2-3.1 cm/m2 LVIDs: 3.74 2.0-3.6 cm LVPWd: 1.09 0.7-1.1 cm LA Diam: 3.70 2.7-3.8/3.0-4.0 cm LAIDs Index: 1.92 1.5-2.3 cm/m2 LV Mass: 253.44 67-162/88-224 g LV Mass Index: 131.32 43-95/49-115 g/m2 LVOT Diam: 2.00 3.0+(-)1.3 cm 2D Systolic Function EF 4C: 57.40 >55% EF 2C: 63.70 >55% EF BiP: 59.30 >55% Mitral Valve MV Pk E: 0.73 MV PK A: 0.66 MV Decel Time: 228.00 E/A: 1.10 E'Lateral: 7.62 E'Medial: 7.83 E/E' Med: 9.30 E/E' Lat: 9.60 PHT: 67.00 MVA PHT: 3.28 Decel [place]: 3.19 Aortic Valve AoV Pk [place]: 1.15 AoV Mn [place]: 0.78 AoV VTI: 0.25 AoV Pk Grad: 5.00 Aov Mn Grad: 3.00 MONIQUE Cont.VTI: 2.93 LVOT LVOT Pk [place]: 1.04 LVOT Mn [place]: 0.67 LVOT VTI: 0.23 LVOT Pk Grad: 4.00 LVOT Mn Grad: 2.00 LVOT Diam: 2.00 LVOT Area: 3.14 Diastolic Function MV Pk E: 0.73 MV Pk A: 0.66 E/A: 1.10 E'Medial: 7.83 E/E' Med: 9.30 E' Laterial: 7.62 E/E' Lat: 9.60 Right Ventricle TAPSE (mm): 27.20 TVS' [place]: 8.27 Tricuspid Valve TR Pk [place]: 2.44 TR Pk Grad: 24.00 RA Press: 3.00 RVSP: 27.00 Great Vessels Aorta Sinus of Valsalva: 3.66 2.0-3.[address] [place]: 2.76 1.7-3.4 cm Ao Asc: 3.70 2.1-3.4 cm Ao Arch: 3.00 Updated in Other Vendor System with Status of Final Nasim Eden MD electronically signed on 10/14/2021 11:49:38 AM with status of Final
--- NOTE | 2021-10-13 07:36 | CA_ITS ---
Acquisition Time: 2021-10-13 08:44:15 Total Exercise Time: 00:09:32 Test Indications: CP Medications: SEE CHART Protocol: SUKHWINDER Max HR: 133 BPM 88% of Pred: 150 BPM Max BP: 142/078 mmHG Max Work Load: 10.9 METS Exercise stress test with exercise 9 min 32 sec of Sukhwinder protocol, acheiving 86% MPHR, with report of mild pressure right chest, moderate shortness of breath, without arrythmia, with normotensive response to exercise, without EKG changes meeting criteria for ischemia. Immediately in recovery, while still on treadmill she became unsteady and presyncopal. She was helped into the recliner and placed in supine position. Heart rate and rhythm remained normal. once BP obtained it was normal range. She was given 150cc normal saline wide open. She reported feeling better and describes that she became lightheaded right after peak exercise. She states he has had syncope in the past when under high stress.- On completion of recovery she was feeling back to her normal self and was steady on her feet. Nuclear images pending. test reviewed with Dr Judge Referred By: Davi Barrett Overread By: CIPRIANO AGRAWAL
== END ==
LOC: HO.CARD 07:33
PROVIDERS: PCP Internal Medicine; Visit Provider Internal Medicine
DX: R07.2 Precordial pain (principal)
CPT/HCPCS: 78452; 93017; 93306; A9500

== ENCOUNTER 2021-10-18 19:37 | Emergency (ER) | payer OTHER, SELFPAY ==
--- NOTE | 2021-10-18 | ECG_ITS ---
Test Reason : CHEST PAIN Blood Pressure : / mmHG Vent. Rate : 076 BPM Atrial Rate : 076 BPM P-R Int : 164 ms QRS Dur : 082 ms QT Int : 402 ms P-R-T Axes : 046 -08 024 degrees QTc Int : 452 ms Normal sinus rhythm Normal ECG When compared with ECG of 13-AUG-2021 10:04, No significant change was found Referred By: Generic ED Physician Electronically Signed By:JIMMY FERNÁNDEZ MD
[2021-10-18 19:41] VITALS: BP 138/90; PULSE 71; RESP 18; TEMP 36.8; O2SAT 94; BMI 29.9
--- NOTE | 2021-10-18 19:53 | ED.NEUROSD ---
HPI - Neuro Symptoms/Deficit General Chief Complaint: Neuro Symptoms/Deficit Stated Complaint: Chest Pain, stiff heart Time Seen by Provider: 10/18/21 19:53 Source: patient Mode of arrival: ambulatory Limitations: no limitations History of Present Illness HPI Narrative: Patient with prior work up for paraesthesias on the left and left sided weakness, she has had a work up including a stroke alert, negative CTA and CT of head, consultation by neurology. Recent visit to the ED for chest pain in July. Patient had off and on chest pain all day. She felt chest pain and then got anxious. Patient had numbness to her face, arm and legs. patient currently on a FMLA for stress and anxiety. patient had a normal nuclear stress test. Onset (ago): hour(s) Timing confirmed by: family member History of same: Yes Severity: mild Exacerbating factors: none Context: gradual onset Associated symptoms: denies other symptoms Related Data Home Medications Medication Instructions Recorded Confirmed trazodone 100 mg tablet 100 mg PO BEDTIME 06/01/21 08/24/21 lorazepam 1 mg tablet 1 mg PO BID-TID PRN tab 06/25/21 08/24/21 duloxetine 60 mg capsule,delayed 90 mg PO DAILY cap 09/16/21 09/16/21 release Previous Rx's Medication Instructions Recorded nicotine 21 mg/24 hr daily 1 patch TRANSDERMAL DAILY #28 ea 09/16/21 transdermal patch cholecalciferol (vitamin D3) 50 50 mcg PO DAILY 30 Days #30 tab 09/27/21 mcg (2,000 unit) tablet metoprolol succinate 50 mg 50 mg PO QPM #30 tab 10/09/21 tablet,extended release 24 hr Allergies Allergy/AdvReac Type Severity Reaction Status Date / Time varenicline AdvReac Unknown suicidal Verified 09/16/21 10:24 ideations Review of Systems Constitutional: Constitutional: Reports no additional constitutional complaints Eyes: Eyes: Reports no additional eye complaints ENT: Denies dizziness Cardiovascular: Cardiovascular: Reports no additional cardiovascular complaints Respiratory: Respiratory: Reports as per HPI Gastrointestinal: Gastrointestinal: Reports no additional gastrointestinal complaints Genitourinary: Genitourinary: Reports no additional female genitourinary complaints Musculoskeletal: Musculoskeletal: Reports no additional musculoskeletal complaints Integumentary/Breasts: Skin/Breast: Denies rash Neurologic: Reports system reviewed and no additional complaints, except as documented, Denies dizziness and Denies Sensory deficit (Neuro) Psychiatric: Psychiatric: Denies anxiety PMFSH Past Medical History Medical History Anxiety and depression Rizzo's palsy Cervical spondylosis with radiculopathy Dyslipidemia (high LDL; low HDL) Encounter for smoking cessation counseling Essential hypertension Family history of early CAD 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 History of primary hyperparathyroidism Hx of Rizzo's palsy Hx of precordial chest pain Hypertension Obesity Osteopenia Overweight Smoker unmotivated to quit Supraclavicular fossa fullness Vitamin D deficiency Surgical History H/O bilateral breast reduction surgery History of adjustable gastric banding History of colonoscopy History of esophagogastroduodenoscopy (EGD) History of parathyroidectomy History of repair of hiatal hernia History of total abdominal hysterectomy and bilateral salpingo-oophorectomy S/P laparoscopic sleeve gastrectomy Family History Family History Father Emphysema of lung Myocardial infarction Cardiovascular disease Hypertension Mental health disorder Mother Hypertension Diabetes Arthritis of knee Colon cancer Brother No problems noted. Sister No problems noted. Sister No problems noted. Sister No problems noted. Son Substance use disorder Mental health disorder Daughter No problems noted. Daughter No problems noted. Daughter No problems noted. Paternal Grandfather Colon cancer Maternal Aunt Lymphoma Breast cancer Paternal Grandmother Rheumatoid arthritis Social History Social History Housing: House Alcohol intake: current Alcohol intake frequency: does not drink Patient Tobacco Use Status: Current everyday Tobacco user Tobacco use type: Cigarette Cigarettes Per Day: 6 e-Cigarette/Vaping Use: Never Used Substance Use Type: Marijuana Advance Directives: No Advance Directives Information Provided: No service: No Current occupational status: employed Sexual orientation: Straight/Heterosexual Gender identity: Female Cognitive needs: No Hearing needs: No Vision needs: No Physical Exam Vital Signs: Vital Signs: Last Vital Signs Temp 98.4 F 10/18/21 20:32 Pulse 67 10/18/21 20:32 Resp 16 10/18/21 20:32 BP 122/70 10/18/21 20:32 Pulse Ox 94 10/18/21 20:32 BMI result Body Mass Index 29.9 Const: General: healthy appearing Nutritional Appearance: average body habitus Orientation/consciousness: oriented to person and patient oriented x3 Limitations: no limitations HEENT: Head: Yes normal to inspection Ears: external ears normal General nose exam: Normal external nose present Mouth: Normal oral and palatal mucosa present and oropharynx normal Throat: Yes posterior oropharynx normal Eyes: General: appearance normal, both eyes and all related structures Neck: Other: supple Neck: Yes normal visual inspection Chest: Chest palpation & inspection: normal inspection of the chest Resp: Auscultation: clear to auscultation bilaterally Cardio: Jugular venous distension: no JVD Rate: regular rate Rhythm: regular rhythm Heart sounds: S1 normal heart sound present and S2 normal heart sound present GI: Inspection: Yes normal to inspection Palpation (GI): Soft to palpation, nontender and No hepatosplenomegaly present Auscultation: normal bowel sounds : General: Yes no CVA tenderness Back/Spine/Pelvis: Back: no CVA tenderness Skin: General skin exam: no rashes or lesions noted Neuro: Other: patient keeps her left eye closed no bells palsy, Neuro in intact General: oriented to person and patient oriented x3 Motor exam (neuro): 5/5 motor strength present throughout Sensory Exam: No Sensory deficit (Neuro) Extrem: General: Yes normal to inspection Psych: Other: Bizarre affect Course Reevaluation(s) Reevaluation #1: EKG and troponin negative, recent work up negative will dc home Time: 21:12 [facility] - Neuro Symptoms/Deficit Lab Data Result diagrams: 10/18/21 20:29 10/18/21 20:29 Labs: Lab Results 10/18/21 10/18/21 10/18/21 Range/Units 19:52 20:29 20:29 WBC 8.8 (4.8-10.8) X10*3/uL RBC 3.93 L (4.20-5.50) X10*6/uL Hgb 12.6 (12.0-16.0) g/dl Hct 37.7 (37.0-47.0) % MCV 95.9 (80.0-98.0) fL MCH 32.1 (27.0-33.0) pg MCHC 33.4 (31.0-35.0) g/dl RDW 13.1 (11.0-16.0) % Plt Count 270 (160-400) X10*3/uL MPV 10.1 (9.4-12.3) fL Immature Gran % (Auto) 0.2 (0.0-0.4) % Neut % (Auto) 51.6 (45-73) % Lymph % (Auto) 36.3 (20-40) % [place] % (Auto) 5.5 (2-11) % Eos % (Auto) 5.7 H (0-4) % Baso % (Auto) 0.7 (0-2) % Lymph # (Auto) 3.2 (1.2-4.9) X10*3/uL [place] # (Auto) 0.5 (0.1-1.2) X10*3/uL Eos # (Auto) 0.5 H (0.0-0.4) X10*3/uL Baso # (Auto) 0.1 (0.0-0.2) X10*3/uL Abs Immat Gran (auto) 0.02 (0.00-0.03) X10*3/uL Absolute Neuts (auto) 4.5 (2.0-8.3) x10*3/uL Absolute Nucleated RBC 0.000 (0.0-0.012) X10*3/uL Nucleated RBC % (auto) 0.0 (0.0-0.2) /100WBC Sodium 141 (135-145) mmol/L Potassium 5.0 D (3.3-5.1) mmol/L Chloride 106 (96-108) mmol/L Carbon Dioxide 26 (22-29) mmol/L Anion Gap 14 (12-20) BUN 22 H (9-16) mg/dL Creatinine 0.84 (0.5-1.4) mg/dL Estim Creat Clear Calc 75.9 Estimated GFR > 60 POC Glucose 102 (60-115) mg/dL Random Glucose 107 (60-115) mg/dL Calcium 9.7 (8.4-10.2) mg/dL Troponin I High Sens (<3.5-17.0) ng/L 10/18/ Range/Units 20:29 WBC (4.8-10.8) X10*3/uL RBC (4.20-5.50) X10*6/uL Hgb (12.0-16.0) g/dl Hct (37.0-47.0) % MCV (80.0-98.0) fL MCH (27.0-33.0) pg MCHC (31.0-35.0) g/dl RDW (11.0-16.0) % Plt Count (160-400) X10*3/uL MPV (9.4-12.3) fL Immature Gran % (Auto) (0.0-0.4) % Neut % (Auto) (45-73) % Lymph % (Auto) (20-40) % [place] % (Auto) (2-11) % Eos % (Auto) (0-4) % Baso % (Auto) (0-2) % Lymph # (Auto) (1.2-4.9) X10*3/uL [place] # (Auto) (0.1-1.2) X10*3/uL Eos # (Auto) (0.0-0.4) X10*3/uL Baso # (Auto) (0.0-0.2) X10*3/uL Abs Immat Gran (auto) (0.00-0.03) X10*3/uL Absolute Neuts (auto) (2.0-8.3) x10*3/uL Absolute Nucleated RBC (0.0-0.012) X10*3/uL Nucleated RBC % (auto) (0.0-0.2) /100WBC Sodium (135-145) mmol/L Potassium (3.3-5.1) mmol/L Chloride (96-108) mmol/L Carbon Dioxide (22-29) mmol/L Anion Gap (12-20) BUN (9-16) mg/dL Creatinine (0.5-1.4) mg/dL Estim Creat Clear Calc Estimated GFR POC Glucose (60-115) mg/dL Random Glucose (60-115) mg/dL Calcium (8.4-10.2) mg/dL Troponin I High Sens < 3.5 (<3.5-17.0) ng/L ECG Data Attestation: I personally reviewed and interpreted this ECG as follows: Interpretation: normal sinus rate of 77, no st or twave changes Discharge Plan Discharge Clinical Impression: Anxiety, Chest pain Patient Disposition: Home, Self-Care Instructions: Anxiety (ED), Noncardiac Chest Pain (ED) Prescriptions: No Action nicotine 21 mg/24 hr patch 24 hour 1 patch transdermal DAILY Qty: 28 0RF cholecalciferol (vitamin D3) 50 mcg (2,000 unit) tablet 50 mcg PO DAILY 30 Days Qty: 30 11RF metoprolol succinate 50 mg tablet extended release 24 hr 50 mg PO QPM Qty: 30 3RF lorazepam 1 mg tablet 1 mg PO BID-TID PRN (Reason: Anxiety) 0RF trazodone 100 mg tablet 100 mg PO BEDTIME 0RF duloxetine 60 mg capsule,delayed release(DR/EC) 90 mg PO DAILY 0RF Referrals: Indiana Chu MD [Primary Care Provider] - 1 week
[2021-10-18 19:58] LABS: Glucose, Whole Blood 102 mg/dL (60-115)
[2021-10-18 20:32] VITALS: BP 122/70; PULSE 67; RESP 16; TEMP 36.9; O2SAT 94
[2021-10-18 20:37] LABS: MANUAL DIFF FLAG NO
[2021-10-18 20:38] LABS: Basophils Absolute Auto 0.1 X10*3/uL (0.0-0.2); Basophils Percent Auto 0.7 % (0-2); Eosinophils Absolute Auto 0.5 X10*3/uL (0.0-0.4); Eosinophils Percent Auto 5.7 % (0-4); Hematocrit 37.7 % (37.0-47.0); Hemoglobin 12.6 g/dl (12.0-16.0); Imm Gran Abs Auto 0.02 X10*3/uL (0.00-0.03); Imm Gran Pct Auto 0.2 % (0.0-0.4); Lymphocytes Absolute Auto 3.2 X10*3/uL (1.2-4.9); Lymphocytes Percent Auto 36.3 % (20-40); Mean Corpuscular HGB Conc 33.4 g/dl (31.0-35.0); Mean Corpuscular Hemoglobin 32.1 pg (27.0-33.0); Mean Corpuscular Volume 95.9 fL (80.0-98.0); Mean Platelet Volume 10.1 fL (9.4-12.3); Monocytes Absolute Auto 0.5 X10*3/uL (0.1-1.2); Monocytes Percent Auto 5.5 % (2-11); Neutrophils Absolute Auto 4.5 x10*3/uL (2.0-8.3); Neutrophils Percent Auto 51.6 % (45-73); Platelet Count 270 X10*3/uL (160-400); Red Blood Count 3.93 X10*6/uL (4.20-5.50); Red Cell Distribution Width 13.1 % (11.0-16.0); White Blood Count 8.8 X10*3/uL (4.8-10.8)
[2021-10-18 20:52] LABS: Anion Gap 14 (12-20); Blood Urea Nitrogen 22 mg/dL (9-16); Calcium 9.7 mg/dL (8.4-10.2); Carbon Dioxide 26 mmol/L (22-29); Chloride 106 mmol/L (96-108); Creatinine Clr Calc Pharmacy 75.9; Estimated Glomerular Filt Rate > 60; Glucose Random 107 mg/dL (60-115); Sodium 141 mmol/L (135-145)
[2021-10-18 21:00] LABS: Troponin-I High Sensitivity < 3.5 ng/L (<3.5-17.0)
== END 2021-10-18 21:26 | disposition home or self-care (01) ==
PROVIDERS: Emergency Provider Emergency Medicine; PCP Internal Medicine
DX: R07.89 Other chest pain (principal); Z71.6 Tobacco abuse counseling; F41.1 Generalized anxiety disorder; F43.0 Acute stress reaction; F17.210 Nicotine dependence, cigarettes, uncomplicated; Z79.899 Other long term (current) drug therapy
CPT/HCPCS: 36415; 80048; 82947; 84484; 85025; 93005; 99283; 99284

== ENCOUNTER → 2021-11-24 14:25 | Outpatient (BNVA) | payer OTHER, SELFPAY | PROVIDERS: PCP Internal Medicine; Referring Provider Internal Medicine; Visit Provider Nurse Practitioner Family | DX: R07.2 Precordial pain (principal); I10 Essential (primary) hypertension; Z82.49 Family history of ischemic heart disease and other diseases of the circulatory system; F17.210 Nicotine dependence, cigarettes, uncomplicated | CPT/HCPCS: 93005 ==

== ENCOUNTER 2021-12-23 10:17 | Outpatient (REF) | payer OTHER, SELFPAY ==
--- NOTE | ~2021-12-23 | MM_ITS ---
EXAMINATION: BONE DENSITOMETRY CLINICAL INDICATION: Other specified disorders of bone density and structure. COMPARISON: Baseline BD dated 05/17/2019. TECHNIQUE: Using a Liquid DXA System (software version: 13.1) manufactured by [employer] - [place], dual-energy x-ray absorptiometry was performed of the lumbar spine and left hip. The images are of good technical quality. Summary results are attached. FINDINGS: AP SPINE L1-L4: Current: BMD 1.023 g/cm2, Z-score -1.1, T-score -1.4, osteopenia, 0.2% increase from baseline (<5% change is not significant). Baseline: BMD 1.021 g/cm2. LEFT FEMUR, NECK: Current: BMD 0.802 g/cm2, Z-score -1.1, T-score -1.7, osteopenia. Baseline: BMD 0.837 g/cm2. LEFT FEMUR, TOTAL: Current: BMD 1.037 g/cm2, Z-score 0.5, T-score 0.2, normal, 3.1% decrease from baseline (<5% change is not significant). Baseline: BMD 1.070 g/cm2. IDENTIFIED RISK FACTORS: Osteoporosis, low calcium intake, secondary osteoporosis, menopause, hysterectomy, bilateral oophorectomy. HISTORY OF FRACTURE: None listed. MEDICATIONS: Calcium supplements or multivitamin, vitamin D. MM/XR DEXA axial skeleton IMPRESSION: 1. DIAGNOSIS: Osteopenia based on the lowest T-score value of -1.7 in the femoral neck applying World Health Organization criteria. 2. 10-YEAR FRACTURE RISK PREDICTION, FRAX: Major osteoporotic fracture (clinical spine, forearm, hip or shoulder) 8.5%. Hip fracture 0.9%. 3. Treatment Recommendations: NOF guidelines recommend consideration for treatment in postmenopausal women and men age 50 and older presenting with the following: -A hip or vertebral (clinical or morphometric) fracture. -T-score less than or equal to -2.5 at the femoral neck or spine after appropriate evaluation to exclude secondary causes. -Low bone mass at the hip or spine and a 10-year fracture probability by FRAX of greater than or equal to 3% for hip fracture or greater than or equal to 20% for major osteoporotic fracture based on the [place] adapted WHO algorithm. 4. Other Recommendations: All treatment decisions require clinical judgment and consideration of individual patient factors, including patient preferences, comorbidities, previous drug use, risk factors not captured in the FRAX model (e.g. frailty, falls, vitamin D deficiency, increased bone turnover, interval significant decline in bone density) and possible under or overestimation of fracture risk by FRAX. Additional medical evaluation for secondary cause of low bone mineral density may be appropriate. FUTURE SCAN RECOMMENDATION: People with diagnosed cases of osteoporosis or at high risk for fracture should have regular bone mineral density tests. For patients eligible for Medicare, routine testing is allowed once every 2 years. The testing frequency can be increased to one year for patients who have rapidly progressing disease, those who are receiving or discontinuing medical therapy to restore bone mass, or have additional risk factors.
== END 2021-12-23 10:18 | disposition home or self-care (01) ==
LOC: HO.MAMMO 10:17
PROVIDERS: PCP Internal Medicine; Visit Provider Internal Medicine Endocrinology, Diabetes & Metabolism
DX: Z13.820 Encounter for screening for osteoporosis (principal); M85.859 Other specified disorders of bone density and structure, unspecified thigh; Z78.0 Asymptomatic menopausal state
CPT/HCPCS: 77080

== ENCOUNTER → 2022-03-16 14:12 | Outpatient (BNVA) | payer OTHER, SELFPAY | PROVIDERS: PCP Internal Medicine; Referring Provider Internal Medicine; Visit Provider Internal Medicine Cardiovascular Disease | DX: I10 Essential (primary) hypertension (principal); R07.2 Precordial pain | CPT/HCPCS: 99212 ==

== ENCOUNTER 2022-06-02 07:50 | Outpatient (REF) | payer OTHER, SELFPAY ==
[2022-06-07 16:30] LABS: HPV mRNA E6/E7 rflx Not Detected (Not Detected)
== END 2022-06-02 07:51 | disposition home or self-care (01) ==
LOC: HO.LNP 07:50
PROVIDERS: PCP Family Medicine; Visit Provider Advanced Practice Midwife
DX: Z01.419 Encounter for gynecological examination (general) (routine) without abnormal findings (principal); Z11.51 Encounter for screening for human papillomavirus (HPV)
CPT/HCPCS: 87624; 88142

== ENCOUNTER 2022-06-27 11:04 | Outpatient (REF) | payer OTHER, SELFPAY ==
--- NOTE | ~2022-06-27 | MM_ITS ---
EXAMINATION: MM SCREENING DIGITAL BREAST TOMOSYNTHESIS, BILATERAL CLINICAL INFORMATION: Screening. Asymptomatic. Bilateral breast reduction surgery. The lifetime risk of breast cancer based on the Tyrer-Cuzick Model is 8.3%. COMPARISON: Mammography: June 03, 2020 and studies dating back to July 07, 2017. TECHNIQUE: Digital breast tomosynthesis is performed in both the craniocaudal and mediolateral oblique views along with computer-aided detection (CAD). Synthesized 2D images are generated from the tomosynthesis. FINDINGS: The breasts are almost entirely fatty (ACR BI-RADS breast composition Category a). There are no significant masses, abnormal calcifications, or other abnormalities. MM/MM tomosynthesis screening BI IMPRESSION: No significant changes ASSESSMENT: BI-RADS 1: Negative RECOMMENDATION: Routine annual mammography screening. This patient's information was entered into a reminder system with a target due date for their next mammogram.
== END 2022-06-27 11:05 | disposition home or self-care (01) ==
LOC: HO.MAMMO 11:04
PROVIDERS: PCP Family Medicine; Visit Provider Advanced Practice Midwife
DX: Z12.31 Encounter for screening mammogram for malignant neoplasm of breast (principal)
CPT/HCPCS: 77063; 77067

== ENCOUNTER 2022-07-21 15:33 | Emergency (ER) | payer OTHER, SELFPAY ==
--- NOTE | ~2022-07-21 | CT_ITS ---
EXAMINATION: CT ABDOMEN AND PELVIS WITH CONTRAST CLINICAL INFORMATION: Abdominal pain COMPARISON: CT abdomen pelvis 09/23/2019 TECHNIQUE: Multidetector volumetric images were obtained from the superior aspect of the liver through the pubic symphysis following administration 85 mL of Omnipaque 350 intravenous contrast. Sagittal and coronal reformatted images were obtained on the technologist's workstation. Oral contrast: No This CT examination was performed using dose optimization techniques as appropriate, variously including the following: *Automated exposure control *Adjustment of mA and/or kV according to patient size (this includes techniques or standardized protocols for targeted exams where dose is matched to indication/reason for exam; i.e. extremities or head) *Use of iterative reconstruction technique DLP: 629 mGy-cm FINDINGS: LUNG BASES: Left basilar scarring is present LIVER, GALLBLADDER, AND BILIARY TREE: The liver is enlarged measuring 19.7 cm in greatest length and demonstrates decreased attenuation consistent with hepatic steatosis. No focal hepatic lesion or biliary ductal dilatation is present. The gallbladder contains calcified gallstones without gallbladder wall thickening or obvious pericholecystic inflammatory changes. PANCREAS: Unremarkable. SPLEEN: Unremarkable. ADRENAL GLANDS: Unremarkable. KIDNEYS AND URETERS: The kidneys are normal in size, shape, and attenuation. No hydronephrosis, hydroureter, or calculi seen. No perinephric stranding. BLADDER: Unremarkable. GASTROINTESTINAL TRACT: Status post gastric sleeve. There is some mild thickening of the distal esophagus. The small and large bowel are unremarkable. The appendix is unremarkable. ABDOMINAL WALL: No significant hernia is appreciated. LYMPH NODES: No retroperitoneal lymphadenopathy. Small calcifications are present in the retroperitoneum consistent with small calcified lymph nodes VASCULAR: Ossific atherosclerotic changes are present in the infrarenal abdominal aorta without aneurysm. PELVIC VISCERA: Status post hysterectomy. An abnormal adnexal mass or free intraperitoneal fluid is not seen. OSSEOUS STRUCTURES: Unremarkable. CT/CT abdomen pelvis w IV con IMPRESSION: 1. A cause for the patient's abdominal pain has not been found. 2. Incidental note made of enlarged fatty liver, cholelithiasis, hysterectomy and gastric sleeve. Fleischner guidelines were followed.
[2022-07-21 15:36] VITALS: BP 147/74; PULSE 63; RESP 20; TEMP 36.6; O2SAT 96; BMI 29.8
[2022-07-21 17:26] LABS: MANUAL DIFF FLAG NO
[2022-07-21 17:27] LABS: Basophils Absolute Auto 0.1 X10*3/uL (0.0-0.2); Basophils Percent Auto 0.4 % (0-2); Eosinophils Absolute Auto 0.6 X10*3/uL (0.0-0.4); Eosinophils Percent Auto 4.6 % (0-4); Hematocrit 39.7 % (37.0-47.0); Hemoglobin 13.1 g/dl (12.0-16.0); Imm Gran Abs Auto 0.04 X10*3/uL (0.00-0.03); Imm Gran Pct Auto 0.3 % (0.0-0.4); Lymphocytes Absolute Auto 3.5 X10*3/uL (1.2-4.9); Lymphocytes Percent Auto 29.1 % (20-40); Mean Corpuscular Volume 96.8 fL (80.0-98.0); Mean Platelet Volume 9.6 fL (9.4-12.3); Monocytes Absolute Auto 0.6 X10*3/uL (0.1-1.2); Monocytes Percent Auto 5.1 % (2-11); Neutrophils Absolute Auto 7.2 x10*3/uL (2.0-8.3); Neutrophils Percent Auto 60.5 % (45-73); Platelet Count 304 X10*3/uL (160-400); Red Cell Distribution Width 13.3 % (11.0-16.0); White Blood Count 11.9 X10*3/uL (4.8-10.8)
[2022-07-21 17:50] LABS: Anion Gap 14 (12-20); Blood Urea Nitrogen 18 mg/dL (9-16); Carbon Dioxide 30 mmol/L (22-29); Chloride 103 mmol/L (96-108); Creatinine Clr Calc Pharmacy 74.8; Estimated Glomerular Filt Rate > 60; Glucose Random 122 mg/dL (60-115); Potassium 4.5 mmol/L (3.3-5.1); Sodium 142 mmol/L (135-145)
[2022-07-21 20:54] VITALS: BP 119/81; PULSE 59; RESP 18; TEMP 36.8; O2SAT 95
[2022-07-21 21:14] LABS: Appearance Urine Clear; Color Urine Dark Yellow; Glucose Urine UA Negative (Negative); Leukocyte Esterase Urine Negative (Negative); Nitrite Urine Negative (Negative); PH 5.5 (5.0-9.0); Specific Gravity - Urine 1.025 (1.005-1.025); Urine Blood Negative (Negative); Urine Ketones Trace mg/dL (Negative); Urine Protein Negative (Neg-Trace)
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
[2022-07-21 22:39] LABS: Alanine Aminotransferase 16 U/L (0-31); Albumin Level 4.4 g/dL (3.5-5.0); Alkaline Phosphatase 83 U/L (39-117); Aspartate Amino Transferase 15 U/L (5-31); Bilirubin Direct < 0.2 mg/dL (0.0-0.5); Bilirubin Total 0.4 mg/dL (0.0-1.0); Lipase 13 U/L (8-78); Total Protein 7.2 g/dL (6.5-8.0)
[2022-07-21] MEDS: 0.9 % Sodium Chloride 1,000 ML 999 ML IV (22:45)
[2022-07-21] MEDS: HYDROmorphone HCl 0.5 MG/0.5 ML SYRINGE IVPUSH (22:46)
--- NOTE | 2022-07-21 22:49 | PC.NURSE ---
pt a&ox3, vss, 20G IV placed right AC, medicated for 7/10 abd pain, 1L NS running. pt declined zofran, took at home meds at 1999. pt pending CT scan. no new orders at this time.
[2022-07-21] MEDS: iohexoL 350 MG/ML 100 ML INFUS..BTL 85 ML IV (23:31)
== END 2022-07-22 00:37 | disposition home or self-care (01) ==
PROVIDERS: Emergency Provider Emergency Medicine Emergency Medical Services; PCP Family Medicine
DX: R10.13 Epigastric pain (principal); Z98.84 Bariatric surgery status; Z79.899 Other long term (current) drug therapy
CPT/HCPCS: 36415; 74177; 80048; 80076; 81003; 83690; 85025; 96361; 96374; 96375; 99284; J1170; Q9967

== ENCOUNTER 2022-07-21 17:22 | Outpatient (REF) | payer OTHER, SELFPAY ==
[2022-07-21 17:57] LABS: Appearance Urine Clear; Color Urine Dark Yellow; Glucose Urine UA Negative (Negative); Leukocyte Esterase Urine Negative (Negative); Nitrite Urine Negative (Negative); PH 5.5 (5.0-9.0); Specific Gravity - Urine 1.025 (1.005-1.025); Urine Blood Negative (Negative); Urine Ketones Trace mg/dL (Negative); Urine Protein Negative (Neg-Trace)
== END 2022-07-21 17:23 | disposition home or self-care (01) ==
LOC: HO.LNP 17:22
PROVIDERS: Visit Provider Physician Assistant Medical
DX: R30.0 Dysuria (principal); R11.0 Nausea
CPT/HCPCS: 81003

== ENCOUNTER → 2022-08-03 11:05 | Outpatient (BNVA) | payer OTHER, SELFPAY | PROVIDERS: PCP Family Medicine; Visit Provider Internal Medicine | DX: K57.90 Diverticulosis of intestine, part unspecified, without perforation or abscess without bleeding (principal); R14.2 Eructation; R19.4 Change in bowel habit; Z87.19 Personal history of other diseases of the digestive system; Z80.0 Family history of malignant neoplasm of digestive organs; Z98.84 Bariatric surgery status | CPT/HCPCS: 99202 ==

== ENCOUNTER → 2022-08-31 11:14 | Outpatient (BNVA) | payer OTHER, SELFPAY | PROVIDERS: PCP Family Medicine; Visit Provider Internal Medicine | DX: K57.90 Diverticulosis of intestine, part unspecified, without perforation or abscess without bleeding (principal); R14.2 Eructation; R19.4 Change in bowel habit; R14.0 Abdominal distension (gaseous); R19.7 Diarrhea, unspecified; Z87.19 Personal history of other diseases of the digestive system; Z80.0 Family history of malignant neoplasm of digestive organs; Z98.84 Bariatric surgery status; Z72.0 Tobacco use | CPT/HCPCS: 99212 ==

== ENCOUNTER 2022-11-07 08:56 | Outpatient (RCR) | payer OTHER, SELFPAY ==
[2022-11-07 09:00] VITALS: BP 120/78
--- NOTE | 2022-11-07 10:04 | MHC.PT.EP ---
[facility] [place] Office [place] Office [place] Office [address] [phone] F: [phone] F: [phone] F: [phone] F: [phone] Physical Therapy Plan of Care Date of Evaluation: Date of Surgery: Diagnosis: Dizziness and giddiness Assessment: Laya is a 62 yo female referred to PT for dizziness and giddiness. Impairments include symptoms of tingling from the top of her head down L side of face/UE, and impaired standing balance with eyes closed. Functional limitations include difficulty showering due to LOB when in closed spaces , difficulty with negotiating her narrow stairs, difficulty driving, and inability to sit for long durations due to onset of symptoms. Examination shows WNL cervical AROM, WNL smooth pursuit/ saccades, negative VBI testing, static balance grossly WNL, and negative for BPPV in all testing positions with no nystagmus or sx. PT not indicated at this time and recommend pt f/u with MD - she has a f/u and is expecting neurology soon. Frequency and Duration: The patient will be seen Short Term Goals: [employer] Goals: D/c from PT - not indicated Treatment Plan: Modalities to reduce pain, spasms and effusion. Manual therapy to restore motion and function. Therapeutic exercise to improve strength and flexibility. Neuromuscular re-education for posture and balance. Therapeutic activities to return to functional activities of daily living. Electronically signed by: Sue Bernal PT Please sign and return to therapist. Thank you for your referral.
--- NOTE | 2022-11-07 12:06 | MHC.PT.DC ---
[facility] [place] [facility] [place] Office [place] Office [address] Raya Maldonado [address] [facility] [phone] F: [phone] F: [phone] F: [phone] F: [phone] Physical Therapy Discharge Report Diagnosis: Dizziness and giddiness Date of Surgery: Date of Evaluation: 11/07/22 Date of Discharge: 11/07/22 Treatments to Date: 1 Cancellations to Date: 0 No Shows to Date: 0 Discharge Status: Recommend MD Follow-up Discharge Summary: Laya is a 62 yo female referred to PT for dizziness and giddiness. Impairments include symptoms of tingling from the top of her head down L side of face/UE, and impaired standing balance with eyes closed. Functional limitations include difficulty showering due to LOB when in closed spaces , difficulty with negotiating her narrow stairs, difficulty driving, and inability to sit for long durations due to onset of symptoms. Examination shows WNL cervical AROM, WNL smooth pursuit/ saccades, negative VBI testing, static balance grossly WNL, and negative for BPPV in all testing positions with no nystagmus or sx. PT not indicated at this time and recommend pt f/u with MD - she has a f/u and is expecting neurology consult soon. Electronically signed by: Sue Bernal PT Please sign and return to therapist. Thank you for your referral.
== END 2022-11-07 12:07 | disposition home or self-care (01) ==
LOC: HO.PTCHIC 08:56
PROVIDERS: PCP Family Medicine; Visit Provider Nurse Practitioner Family
DX: R42 Dizziness and giddiness (principal)
CPT/HCPCS: 97112; 97162

== ENCOUNTER 2022-11-09 06:21 | Outpatient (REF) | payer OTHER, SELFPAY ==
[2022-11-09 12:05] LABS: Cholesterol 245 mg/dL; HDL Cholesterol 41 mg/dL; LDL Cholesterol Calculated 160 mg/dl; Triglycerides 223 mg/dL
[2022-11-09 12:23] LABS: TSH reflex Free T4 1.67 uIU/mL (0.32-4.0); Vitamin D 25-OH Total 55.3 ng/mL (>30)
[2022-11-09 12:24] LABS: Folate 10.6 ng/mL (> or = 4.0); Vitamin B12 500 pg/mL (200-900)
[2022-11-09 12:25] LABS: Ferritin 74 ng/mL (10-250)
[2022-11-16 05:33] LABS: Vitamin A 38 mcg/dL (38-98)
== END 2022-11-09 06:22 | disposition home or self-care (01) ==
LOC: HO.HMGCLDS 06:21
PROVIDERS: Absent Provider Nurse Practitioner Family; PCP Family Medicine; Visit Provider Internal Medicine Gastroenterology
DX: Z00.00 Encounter for general adult medical examination without abnormal findings (principal); E46 Unspecified protein-calorie malnutrition; E55.9 Vitamin D deficiency, unspecified
CPT/HCPCS: 36415; 80061; 82306; 82607; 82728; 82746; 84443; 84590

== ENCOUNTER → 2022-11-10 11:58 | Outpatient (BNVA) | payer OTHER, SELFPAY | PROVIDERS: PCP Family Medicine; Referring Provider Family Medicine; Visit Provider Internal Medicine Cardiovascular Disease | DX: R00.2 Palpitations (principal); I10 Essential (primary) hypertension | CPT/HCPCS: 93005; 99212 ==

== ENCOUNTER 2022-12-01 06:47 | Day surgery (SDC) | payer OTHER, SELFPAY ==
[2022-11-29 14:00] VITALS: BMI 31.0
[2022-12-01 07:06] VITALS: BMI 30.2
[2022-12-01 07:15] VITALS: BP 131/79; PULSE 79; RESP 15; TEMP 35.9; O2SAT 95
[2022-12-01] MEDS: Lactated Ringers 1,000 ML 100 ML IVCONT (07:36)
--- NOTE | 2022-12-01 08:34 | MHC.SHP ---
Pre-Procedural Eval Section A Date of Service: 12/01/22 Section B Chief Complaint: Hx of diverticulitis, diarrhea Details of Present Illness: Medical History Anxiety and depression Rizzo's palsy Cervical spondylosis with radiculopathy Dyslipidemia (high LDL; low HDL) Encounter for smoking cessation counseling Essential hypertension Family history of early CAD 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 History of primary hyperparathyroidism Hx of Rizzo's palsy Hx of precordial chest pain Hypertension Mixed dyslipidemia Obesity Osteopenia Overweight Smoker unmotivated to quit Supraclavicular fossa fullness Vitamin D deficiency Surgical History H/O bilateral breast reduction surgery History of adjustable gastric banding History of colonoscopy History of esophagogastroduodenoscopy (EGD) History of parathyroidectomy History of repair of hiatal hernia History of total abdominal hysterectomy and bilateral salpingo-oophorectomy S/P laparoscopic sleeve gastrectomy Relevant Social History: Tobacco Use Present Medications: see Short Stay Collaborative assessment Allergies: Allergies Allergy/AdvReac Type Severity Reaction Status Date / Time varenicline AdvReac Unknown suicidal Verified 12/01/22 07:04 ideations Review of Systems Review of Systems Comment: 10 point ROS negative except as above Exam Exam Comment: Gen appear: No acute distress HEENT: no icterus Chest: No overt resp distress Abd: soft, nontender, nondistended Psych: Stable affect, answering questions appropriately Neuro: A/Ox3 noted to move all extremities spontaneously Ext: no peripheral edema Plan Diagnosis/Plan: Unchanged I have reviewed the history and physical and performed a pertinent physical examination on my patient. No changes have occurred unless specified. Time Spent With Patient Time: Total time managing care of this patient today ____ minutes.
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
--- NOTE | 2022-12-01 09:32 | P.OP_ITS ---
Operative Note Operative Note Date of Service: 12/01/22 Narrative: Procedure:?Esophagogastroduodenoscopy and colonoscopy Endoscopist:?Jadyn Sanchez MD Indication:?Hx of diverticulitis, and diarrhea Anesthesia Provider:?Dr Adonis Hagen Anesthesia Type:?MAC Instrument:?Olympus GIF-H190, PCF-H190L EGD Procedure:?? The procedure, indications, preparation and potential complications were reviewed with the patient, who indicated understanding and gave written informed consent to proceed. A physical exam was performed. The endoscope was introduced through the mouth, and advanced to the second part of duodenum. The mucosa was carefully examined on slow withdrawal of the endoscope. There were no immediate complications. Patient tolerated the procedure well. EGD Findings:? * Esophagus:? Normal mucosa noted in the entire esophagus. A small hiatal hernia was noted with the diaphragmatic pinch at 40 cm and the Z-line at 38 cm. * Stomach:? Evidence of sleeve gastrectomy. Normal gastric mucosa. Retroflexion performed in the fundus showed Hill grade 3 hiatal hernia. Cold forceps biopsies were taken to rule out H Pylori. * Duodenum:? Normal duodenal mucosa to the extent visualised. Cold forceps biopsies were taken to rule out celiac disease. Colonoscopy Procedure:? The patient was then turned for the colonoscopy. A digital rectal exam was performed which was abnormal for external hemorrhoids.? A distal attachment cap was affixed to the tip of the scope and the colonoscope was then inserted through the anus and advanced through the colon to the cecum at 85 cm and terminal ileum. Appendiceal orifice and ileocecal valve were identified. Mucosa was carefully examined under high definition white light as the instrument was slowly withdrawn in a retrograde panoramic fashion. Retroflexion was performed in rectum. The procedure was not difficult. There were no immediate obvious complications. The quality of the prep was BBPS: 3+2+3 = adequate Withdrawal time: 10 minutes Limitations: No limitation. Findings: Mucosa: Normal mucosa to cecum and terminal ileum. Cold forceps biopsies were taken from the right and left side of colon to rule out microscopic colitis. Protruding lesions: * Medium internal hemorrhoids without stigmata of recent bleeding. Excavated lesions: * Diffuse diverticulosis in sigmoid colon and scattered diverticulosis in the re maining colon including ascending colon. Impression: 1. Normal esophagus 2. s/p sleeve gastrectomy (biopsy) 3. Hiatal hernia 4. Normal duodenum (biopsy) 5. Normal colon and terminal ileum mucosa (biopsy) 6. Diverticulosis 7. Internal and external hemorrhoids Recommendations:?? * Await pathology results. * Repeat colonoscopy for asymptomatic colon cancer screening in 10 years.
[2022-12-01 09:38] VITALS: BP 122/77; PULSE 61; RESP 18; TEMP 36.4; O2SAT 95
[2022-12-01 09:55] VITALS: BP 126/77; PULSE 55; RESP 18; TEMP 36.4; O2SAT 95
== END 2022-12-01 10:11 | disposition home or self-care (01) ==
PROVIDERS: PCP Family Medicine; Visit Provider Internal Medicine
PROC: (CPT 45380; principal; 2022-12-01 08:30)
DX: R19.7 Diarrhea, unspecified (principal); Z80.0 Family history of malignant neoplasm of digestive organs; K57.30 Diverticulosis of large intestine without perforation or abscess without bleeding; K64.8 Other hemorrhoids; Z87.19 Personal history of other diseases of the digestive system; K64.4 Residual hemorrhoidal skin tags; R14.0 Abdominal distension (gaseous); K20.80 Other esophagitis without bleeding; K44.9 Diaphragmatic hernia without obstruction or gangrene; E78.2 Mixed hyperlipidemia; I10 Essential (primary) hypertension; G51.0 Bell's palsy; F41.8 Other specified anxiety disorders; Z79.899 Other long term (current) drug therapy; Z88.8 Allergy status to other drugs, medicaments and biological substances; Z98.84 Bariatric surgery status; Z90.3 Acquired absence of stomach [part of]; F17.210 Nicotine dependence, cigarettes, uncomplicated
CPT/HCPCS: 45380; 43239; 88305; 88342; J3010

== ENCOUNTER → 2022-12-01 06:47 | Outpatient (BNV) | payer OTHER, SELFPAY | PROVIDERS: PCP Family Medicine; Visit Provider Internal Medicine | DX: K52.9 Noninfective gastroenteritis and colitis, unspecified (principal); Z87.19 Personal history of other diseases of the digestive system; K44.9 Diaphragmatic hernia without obstruction or gangrene; K57.30 Diverticulosis of large intestine without perforation or abscess without bleeding; Z90.3 Acquired absence of stomach [part of] | CPT/HCPCS: 43239; 45380 ==

== ENCOUNTER 2022-12-12 08:56 | Outpatient (AMB) | payer OTHER, SELFPAY ==
[2022-12-12 08:59] VITALS: BP 128/72; PULSE 84; BMI 31.3
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
== END 2022-12-12 09:26 | disposition home or self-care (01) ==
PROVIDERS: Visit Provider Internal Medicine
DX: Z87.19 Personal history of other diseases of the digestive system (principal); K57.90 Diverticulosis of intestine, part unspecified, without perforation or abscess without bleeding; Z80.0 Family history of malignant neoplasm of digestive organs; R14.2 Eructation; R19.4 Change in bowel habit; R14.0 Abdominal distension (gaseous); R19.7 Diarrhea, unspecified; R15.9 Full incontinence of feces
CPT/HCPCS: 99214

== ENCOUNTER → 2022-12-12 08:56 | Outpatient (BNVA) | payer OTHER, SELFPAY | PROVIDERS: Visit Provider Internal Medicine | DX: K57.90 Diverticulosis of intestine, part unspecified, without perforation or abscess without bleeding (principal); R14.2 Eructation; R19.4 Change in bowel habit; R14.0 Abdominal distension (gaseous); R19.7 Diarrhea, unspecified; R15.9 Full incontinence of feces; Z87.19 Personal history of other diseases of the digestive system; Z80.0 Family history of malignant neoplasm of digestive organs | CPT/HCPCS: 99212 ==

== ENCOUNTER 2022-12-16 11:49 | Outpatient (AMB) | payer OTHER, SELFPAY ==
[2022-12-16 11:53] VITALS: BP 112/74; PULSE 84; RESP 12; TEMP 36.4; O2SAT 98; BMI 31.8
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
== END 2022-12-16 12:48 | disposition home or self-care (01) ==
PROVIDERS: Visit Provider Family Medicine
DX: F41.9 Anxiety disorder, unspecified (principal); F32.A Depression, unspecified; R26.89 Other abnormalities of gait and mobility
CPT/HCPCS: 99213

== ENCOUNTER 2023-01-13 11:12 | Outpatient (REF) | payer OTHER, SELFPAY ==
--- NOTE | ~2023-01-13 | MR_ITS ---
EXAMINATION: MR BRAIN WITHOUT CONTRAST CLINICAL INFORMATION: Demyelinating disease. COMPARISON: Brain MRI from 12/29/2020. TECHNIQUE: MRI of the brain was obtained using routine sequences without contrast. FINDINGS: No focal restricted diffusion is demonstrated to suggest acute or subacute cerebral ischemia. No evidence of acute or chronic hemorrhagic products on heme-sensitive imaging. Scattered periventricular and deep white matter T2 FLAIR hyperintensities most commonly seen with mild underlying microangiopathy. Proportional prominence of the ventricles and sulcal spaces without evidence of obstructive hydrocephalus. No abnormal mass effect. No midline shift. Normal appearance of the pituitary gland. Normal positioning of the cerebellar tonsils. Normal arterial and venous vascular flow voids are present. Normal, homogeneous marrow signal. Mild mucosal thickening of the paranasal sinuses. No signal abnormalities within the mastoids. MR/MR head/brain wo con IMPRESSION: 1. No acute intracranial abnormalities. 2. Few nonspecific white matter changes most commonly seen with mild underlying microangiopathy (similar distribution and degree compared to 2020). Mild generalized cerebral volume loss.
== END 2023-01-13 11:13 | disposition home or self-care (01) ==
LOC: HO.MRI 11:12
PROVIDERS: PCP Family Medicine; Visit Provider Psychiatry & Neurology Neurology
DX: G37.9 Demyelinating disease of central nervous system, unspecified (principal)
CPT/HCPCS: 70551

== ENCOUNTER 2023-02-14 10:34 | Outpatient (AMB) | payer OTHER, SELFPAY ==
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
[2023-02-14 10:39] VITALS: BP 112/64; PULSE 77; RESP 14; TEMP 37.2; O2SAT 96; BMI 32.4
== END 2023-02-14 11:28 | disposition home or self-care (01) ==
PROVIDERS: PCP Family Medicine; Visit Provider Family Medicine
DX: E78.2 Mixed hyperlipidemia (principal); I10 Essential (primary) hypertension; R20.2 Paresthesia of skin; F41.9 Anxiety disorder, unspecified; F32.A Depression, unspecified; R55 Syncope and collapse; F17.210 Nicotine dependence, cigarettes, uncomplicated
CPT/HCPCS: 99214

== ENCOUNTER 2023-05-30 10:09 | Outpatient (REF) | payer OTHER, SELFPAY ==
[2023-05-30 13:27] LABS: Appearance Urine Cloudy; Color Urine Yellow; Glucose Urine UA Negative (Negative); Leukocyte Esterase Urine Large (3+) (Negative); Nitrite Urine Positive (Negative); PH 5.5 (5.0-9.0); Specific Gravity - Urine 1.015 (1.005-1.025); UMIC TRIGGER UA YES; Urine Blood Negative (Negative); Urine Ketones Negative (Negative); Urine Protein Negative (Neg-Trace)
[2023-05-30 13:34] LABS: Bacteria Urine 4+ (None Seen); Hyaline Casts Urine 0-2 /LPF (0-2); RBC Urine 0-2 /HPF (0-2); WBC Urine >50 /HPF (0-5)
[2023-05-30 13:51] LABS: Alanine Aminotransferase 25 U/L (0-31); Alkaline Phosphatase 87 U/L (39-117); Anion Gap 13 (12-20); Aspartate Amino Transferase 18 U/L (5-31); Bilirubin Total 0.5 mg/dL (0.0-1.0); Blood Urea Nitrogen 15 mg/dL (9-16); Carbon Dioxide 29 mmol/L (22-29); Chloride 107 mmol/L (96-108); Estimated Glomerular Filt Rate > 60; Glucose Fasting 115 mg/dL (60-99); Potassium 5.1 mmol/L (3.3-5.1); Sodium 144 mmol/L (135-145); Total Protein 7.3 g/dL (6.5-8.0)
== END 2023-05-30 10:10 | disposition home or self-care (01) ==
LOC: HO.HMGCLDS 10:09
PROVIDERS: PCP Family Medicine; Visit Provider Family Medicine
DX: Z00.00 Encounter for general adult medical examination without abnormal findings (principal); E78.2 Mixed hyperlipidemia
CPT/HCPCS: 36415; 80053; 81001

== ENCOUNTER 2023-06-16 11:55 | Outpatient (AMB) | payer OTHER, SELFPAY ==
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
[2023-06-16 13:12] VITALS: BP 130/90; PULSE 72; RESP 14; TEMP 36.1; O2SAT 98
[2023-06-16 13:16] VITALS: BP 136/98
== END 2023-06-16 14:01 | disposition home or self-care (01) ==
PROVIDERS: PCP Family Medicine; Visit Provider Nurse Practitioner Family
DX: R19.7 Diarrhea, unspecified (principal); R15.9 Full incontinence of feces; R15.2 Fecal urgency; R10.30 Lower abdominal pain, unspecified
CPT/HCPCS: 99215

== ENCOUNTER 2023-06-19 09:36 | Outpatient (AMB) | payer OTHER, SELFPAY ==
[2023-06-19 09:55] VITALS: BP 130/69; PULSE 66; O2SAT 95; BMI 33.7
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
== END 2023-06-19 10:45 | disposition home or self-care (01) ==
PROVIDERS: PCP Family Medicine; Visit Provider Family Medicine
DX: E78.2 Mixed hyperlipidemia (principal); I10 Essential (primary) hypertension; R82.90 Unspecified abnormal findings in urine; R26.81 Unsteadiness on feet; B35.9 Dermatophytosis, unspecified; R41.3 Other amnesia; R51.9 Headache, unspecified; M54.2 Cervicalgia; R30.0 Dysuria
CPT/HCPCS: 81003; 99214

== ENCOUNTER 2023-06-19 10:53 | Outpatient (REF) | payer OTHER, SELFPAY | END 2023-06-19 10:54 | disposition home or self-care (01) | LOC: HO.LAB 10:53 | PROVIDERS: Visit Provider Family Medicine | DX: N39.0 Urinary tract infection, site not specified (principal); R30.0 Dysuria | CPT/HCPCS: 87086; 87088; 87186 ==

== ENCOUNTER 2023-06-20 18:44 | Outpatient (REF) | payer OTHER, SELFPAY ==
[2023-06-21 16:37] LABS: CDiff Gene PCR POSITIVE (Negative)
[2023-06-21 17:09] LABS: CDIFF Internal ctrl Dots and bkg OK (V); CDiff Toxin Negative (Negative)
== END 2023-06-20 18:45 | disposition home or self-care (01) ==
LOC: HO.HMGCLNP 18:44
PROVIDERS: Visit Provider Nurse Practitioner Family
DX: R15.9 Full incontinence of feces (principal); R19.7 Diarrhea, unspecified
CPT/HCPCS: 87324; 87493

== ENCOUNTER 2023-06-28 13:36 | Outpatient (AMB) | payer OTHER, SELFPAY ==
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
[2023-06-28 13:41] VITALS: BP 134/82; PULSE 69; BMI 33.2
== END 2023-06-28 14:21 | disposition home or self-care (01) ==
PROVIDERS: PCP Family Medicine; Visit Provider Internal Medicine
DX: Z87.19 Personal history of other diseases of the digestive system (principal); K57.90 Diverticulosis of intestine, part unspecified, without perforation or abscess without bleeding; Z80.0 Family history of malignant neoplasm of digestive organs; R19.4 Change in bowel habit; R14.0 Abdominal distension (gaseous); R19.7 Diarrhea, unspecified
CPT/HCPCS: 99214

== ENCOUNTER → 2023-06-28 13:36 | Outpatient (BNVA) | payer OTHER, SELFPAY | PROVIDERS: PCP Family Medicine; Visit Provider Internal Medicine | DX: K57.90 Diverticulosis of intestine, part unspecified, without perforation or abscess without bleeding (principal); R19.4 Change in bowel habit; R14.0 Abdominal distension (gaseous); R19.7 Diarrhea, unspecified; Z87.19 Personal history of other diseases of the digestive system; Z80.0 Family history of malignant neoplasm of digestive organs | CPT/HCPCS: 99212 ==

== ENCOUNTER 2023-07-06 09:50 | Outpatient (REF) | payer OTHER, SELFPAY ==
[2023-07-06 13:21] LABS: Appearance Urine Clear; Color Urine Yellow; Glucose Urine UA Negative (Negative); Leukocyte Esterase Urine Negative (Negative); Nitrite Urine Negative (Negative); PH 5.5 (5.0-9.0); Urine Blood Negative (Negative); Urine Ketones Negative (Negative); Urine Protein Negative (Neg-Trace)
[2023-07-06 13:48] LABS: Cholesterol 166 mg/dL (<200); HDL Cholesterol 44 mg/dL (>40); LDL Cholesterol Calculated 86 mg/dL (<100); Triglycerides 181 mg/dL (<150)
== END 2023-07-06 09:51 | disposition home or self-care (01) ==
LOC: HO.HMGCLDS 09:50
PROVIDERS: PCP Family Medicine; Visit Provider Family Medicine
DX: Z00.00 Encounter for general adult medical examination without abnormal findings (principal)
CPT/HCPCS: 36415; 80061; 81003

== ENCOUNTER 2023-07-10 15:26 | Outpatient (AMB) | payer OTHER, SELFPAY ==
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
== END 2023-07-11 08:24 | disposition home or self-care (01) ==
LOC: HO.HMGFM 15:26
PROVIDERS: PCP Family Medicine; Visit Provider Family Medicine
DX: N39.0 Urinary tract infection, site not specified (principal); E78.5 Hyperlipidemia, unspecified
CPT/HCPCS: 99212

== ENCOUNTER 2023-07-13 09:46 | Outpatient (AMB) | payer OTHER, SELFPAY ==
[2023-07-13 09:57] VITALS: BP 128/72; PULSE 69; O2SAT 97; BMI 33.6
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
== END 2023-07-13 11:36 | disposition home or self-care (01) ==
PROVIDERS: PCP Family Medicine; Visit Provider Family Medicine
DX: N39.0 Urinary tract infection, site not specified (principal); Z01.818 Encounter for other preprocedural examination
CPT/HCPCS: 99213

== ENCOUNTER 2023-08-10 12:50 | Outpatient (AMB) | payer OTHER, SELFPAY ==
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
== END 2023-08-10 13:47 | disposition home or self-care (01) ==
PROVIDERS: PCP Family Medicine; Visit Provider Nurse Practitioner Family
DX: N39.0 Urinary tract infection, site not specified (principal)
CPT/HCPCS: 81002; 99214

== ENCOUNTER 2023-08-11 11:55 | Outpatient (AMB) | payer OTHER, SELFPAY ==
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
[2023-08-11 12:16] VITALS: BP 119/68; PULSE 69; BMI 33.6
== END 2023-08-11 13:04 | disposition home or self-care (01) ==
PROVIDERS: PCP Family Medicine; Visit Provider Internal Medicine
DX: K58.0 Irritable bowel syndrome with diarrhea (principal); N39.0 Urinary tract infection, site not specified; M85.89 Other specified disorders of bone density and structure, multiple sites; Z98.84 Bariatric surgery status
CPT/HCPCS: 99214

== ENCOUNTER → 2023-08-11 11:55 | Outpatient (BNVA) | payer OTHER, SELFPAY | PROVIDERS: PCP Family Medicine; Visit Provider Internal Medicine | DX: K58.0 Irritable bowel syndrome with diarrhea (principal); N39.0 Urinary tract infection, site not specified; M85.89 Other specified disorders of bone density and structure, multiple sites; Z90.3 Acquired absence of stomach [part of] | CPT/HCPCS: 99212 ==

== ENCOUNTER 2023-08-31 11:08 | Outpatient (REF) | payer OTHER, SELFPAY ==
[2023-09-07 18:59] LABS: HPV mRNA E6/E7 rflx Not Detected (Not Detected)
== END 2023-08-31 11:09 | disposition home or self-care (01) ==
LOC: HO.LNP 11:08
PROVIDERS: PCP Family Medicine; Visit Provider Advanced Practice Midwife
DX: Z01.419 Encounter for gynecological examination (general) (routine) without abnormal findings (principal); Z11.51 Encounter for screening for human papillomavirus (HPV); N89.0 Mild vaginal dysplasia; Z91.89 Other specified personal risk factors, not elsewhere classified
CPT/HCPCS: 87624; 88142; 99396

== ENCOUNTER 2023-08-31 11:08 | Outpatient (AMB) | payer OTHER, SELFPAY ==
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
[2023-08-31 11:12] VITALS: BP 110/76; BMI 33.9
== END 2023-08-31 11:44 | disposition home or self-care (01) ==
PROVIDERS: PCP Family Medicine; Visit Provider Advanced Practice Midwife
DX: Z01.419 Encounter for gynecological examination (general) (routine) without abnormal findings (principal)
CPT/HCPCS: 99396

== ENCOUNTER 2023-08-31 11:39 | Outpatient (REF) | payer OTHER, SELFPAY | END 2023-08-31 11:40 | disposition home or self-care (01) | LOC: HO.LAB 11:39 | PROVIDERS: Visit Provider Advanced Practice Midwife | DX: Z13.89 Encounter for screening for other disorder (principal) ==

== ENCOUNTER 2023-08-31 11:50 | Outpatient (REF) | payer OTHER, SELFPAY ==
[2023-08-31 13:51] LABS: Hematocrit 34.4 % (37.0-47.0); Hemoglobin 11.3 g/dl (12.0-16.0); Mean Corpuscular HGB Conc 32.8 g/dl (31.0-35.0); Mean Corpuscular Hemoglobin 30.8 pg (27.0-33.0); Mean Corpuscular Volume 93.7 fL (80.0-98.0); Mean Platelet Volume 9.9 fL (9.4-12.3); Platelet Count 321 X10*3/uL (160-400); Red Blood Count 3.67 X10*6/uL (4.20-5.50); Red Cell Distribution Width 13.4 % (11.0-16.0); White Blood Count 8.9 X10*3/uL (4.8-10.8)
[2023-08-31 14:50] LABS: Iron 93 mcg/dL (30-160); Magnesium 1.9 mg/dL (1.6-2.6); Percent Iron Saturation 34 % (15-50); Total Iron Binding Capacity 273 mcg/dL (228-428); Unsaturated Iron Binding 180 ug/dL
[2023-08-31 14:57] LABS: Ferritin 95 ng/mL (10-250); Vitamin D 25-OH Total 40.9 ng/mL (>30)
[2023-08-31 15:09] LABS: Folate 8.8 ng/mL (> or = 4.0); Vitamin B12 799 pg/mL (200-900)
[2023-08-31 17:13] LABS: CT PCR NOT DETECTED (Not Detect.); NG PCR NOT DETECTED (Not Detect.)
[2023-09-01 13:09] LABS: BV Int Neg Control Negative (Negative); BV Int Pos Control Positive (Positive)
[2023-09-04 13:24] LABS: Copper, plasma 108 mcg/dL (70-175); Zinc 68 mcg/dL (60-130)
[2023-09-05 08:08] LABS: Vitamin A 49 mcg/dL (38-98)
== END 2023-08-31 11:51 | disposition home or self-care (01) ==
LOC: HO.LAB 11:50
PROVIDERS: Absent Provider Internal Medicine; PCP Internal Medicine; Visit Provider Advanced Practice Midwife
DX: N89.8 Other specified noninflammatory disorders of vagina (principal); N39.0 Urinary tract infection, site not specified; R82.90 Unspecified abnormal findings in urine; Z98.84 Bariatric surgery status
CPT/HCPCS: 0353U; 36415; 82306; 82525; 82607; 82728; 82746; 83540; 83735; 84590; 84630; 85027; 87086; 87480; 87510; 87660

== ENCOUNTER 2023-09-05 09:00 | Outpatient (RCR) | payer OTHER, SELFPAY ==
--- NOTE | 2023-07-07 11:44 | MHC.PT.EP ---
[facility] [place] Office [place] Office [place] Office [address] Raya Maldonado [address] [phone] F: [phone] F: [phone] F: [phone] F: [phone] Physical Therapy Plan of Care Date of Evaluation: 07/07/23 Date of Surgery: Diagnosis: Shoulder pain, Cervicalgia Assessment: Patient is a 63 year old R handed female who presents with s/s consistent with shoulder pain, cervicalgia. She is disability due to stress and anxiety and likes to spend time doing quinn art. Patient past medical history is fairly complex and includes Supraclavicular fossa fullness, anxiety and depression. Current impairments include pain, posture, ROM, strength, activity tolerance and functional mobility. Functional limitations include decreased ability to turn head, look down, participate in hobbies, drive and sleep. Patient is motivated with good rehab potential. Skilled PT will address impairments and functional limitations in order to achieve goals. Frequency and Duration: The patient will be seen 2x/week for 5 weeks Short Term Goals: I with HEP - 2 weeks AROM rotation 58 b/l - 3 weeks Improved postural awareness - 3 weeks Drum Plater Goals: Max pain with ADLs 10 - 5 weeks DICKSON frequency < 2x per week - 5 weeks MT/LT 4/5 b/l - 5 weeks NPDI 16% or less - 5 weeks Treatment Plan: Modalities to reduce pain, spasms and effusion. Manual therapy to restore motion and function. Therapeutic exercise to improve strength and flexibility. Neuromuscular re-education for posture and balance. Therapeutic activities to return to functional activities of daily living. Electronically signed by: Zoran Plunkett, PT Please sign and return to therapist. Thank you for your referral.
--- NOTE | 2024-01-30 10:36 | MHC.PT.DC ---
[facility] [place] [facility] [place] [facility] [place] [facility] [address] Raya Maldonado [address] [phone] F: [phone] F: [phone] F: [phone] F: [phone] Physical Therapy Discharge Report Diagnosis: Shoulder pain, Cervicalgia Date of Surgery: Date of Evaluation: 07/07/23 Date of Discharge: 10/02/23 Treatments to Date: 11 Cancellations to Date: No Shows to Date: Discharge Status: Independent with HEP Discharge Summary: 09/04; Pt had decreased c/o tightness, TTP SCM after RX. DICKSON and tingling resolved. NV SNAG and review technique, review breathing exs and HEP and DC with program. 08/28; Pt has reduced c/s and D/S R rotation. Pt needed v/c to perform SNAG technique. NV review. 08/21; Pt felt relief from manual RX. Pt sxs resolved and R rotation imporved after SNAG. Pt suffers from depression and craniosacral has been reducing her anxiety. 08/07; Pt had increased c/s R rot after RX. Pt stated she felt good. 08/04/23: consented to try traction per pts interest. good response and we held on the therex in order to not muddy which response was caused by what intervention. 07/25; Pt had increased R c/s rotation after RX and reporetd reduced DICKSON and tingling and felt it helped her well being. ; Pt DICKSON resolved after RX. Pt SCM TTP. Increased rotation after RX. Review posture. 07/18; Pt had increased R c/s rotation and decreased c/opain and N/T after manual RX> 07/14/23: pt progressing well with skilled PT. no adverse reactions from above program. noting less DICKSON and less severe when they do occur. 07/11/23: progressed with postural edu and intervention. no adverse reactions. continues to progress as tolerated. Patient is a 63 year old R handed female who presents with s/s consistent with shoulder pain, cervicalgia. She is disability due to stress and anxiety and likes to spend time doing [employer] art. Patient past medical history is fairly complex and includes Supraclavicular fossa fullness, anxiety and depression. Current impairments include pain, posture, ROM, strength, activity tolerance and functional mobility. Functional limitations include decreased ability to turn head, look down, participate in hobbies, drive and sleep. Patient is motivated with good rehab potential. Skilled PT will address impairments and functional limitations in order to achieve goals. Electronically signed by: Zoran Plunkett, PT Please sign and return to therapist. Thank you for your referral.
== END 2024-01-30 10:37 | disposition home or self-care (01) ==
LOC: HO.PTCHIC 09:00
PROVIDERS: PCP Family Medicine; Visit Provider Family Medicine
DX: M54.2 Cervicalgia (principal); R51.9 Headache, unspecified; M25.511 Pain in right shoulder
CPT/HCPCS: 97012; 97110; 97140; 97163

== ENCOUNTER 2023-09-13 15:48 | Outpatient (REF) | payer OTHER, SELFPAY ==
--- NOTE | ~2023-09-13 | MR_ITS ---
EXAMINATION: MRI PELVIS WITH AND WITHOUT CONTRAST CLINICAL INFORMATION: Reason for Exam N39.0 - Urinary tract infection, site not specified COMPARISON: CT abdomen/pelvis 07/21/2022 TECHNIQUE: Multiple routine MRI sequences through the pelvis were obtained on a high-field 1.5 Luna MRI before and after the uneventful administration of 10 mL of Gadavist gadolinium-based IV contrast. FINDINGS: UTERUS: Surgically absent. KIDNEYS: Two normally positioned kidneys are seen. No hydronephrosis. BLADDER: Mildly trabeculated. No bladder wall thickening. No perivesicular stranding. BOWEL: Diverticular disease of the sigmoid colon. No pericolonic inflammatory changes. PELVIC FREE FLUID: No free fluid or fluid collection. LYMPH NODES: No pathologically enlarged lymph nodes. MR/MR pelvis wo/w con IMPRESSION: No acute abnormality. No MR evidence of colovesicular fistula. There is no bladder wall thickening or perivesicular stranding.
[2023-09-13] MEDS: gadobutroL 10 ML VIAL IVPUSH (16:46)
== END 2023-09-13 15:49 | disposition home or self-care (01) ==
LOC: HO.MRI 15:48
PROVIDERS: PCP Family Medicine; Visit Provider Internal Medicine
DX: N39.0 Urinary tract infection, site not specified (principal)
CPT/HCPCS: 72197; A9585

== ENCOUNTER 2023-09-18 14:51 | Outpatient (REF) | payer OTHER, SELFPAY | END 2023-09-18 14:52 | disposition home or self-care (01) | LOC: HO.LNP 14:51 | PROVIDERS: PCP Family Medicine; Visit Provider Nurse Practitioner Family | DX: N39.0 Urinary tract infection, site not specified (principal) | CPT/HCPCS: 51798; 81003; 87086; 99202 ==

== ENCOUNTER 2023-09-18 14:51 | Outpatient (AMB) | payer OTHER, SELFPAY ==
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
== END 2023-09-18 16:14 | disposition home or self-care (01) ==
PROVIDERS: PCP Family Medicine; Visit Provider Nurse Practitioner Family
DX: N39.0 Urinary tract infection, site not specified (principal)
CPT/HCPCS: 99204

== ENCOUNTER 2023-09-19 08:49 | Outpatient (REF) | payer OTHER, SELFPAY ==
--- NOTE | ~2023-09-19 | MM_ITS ---
EXAMINATION: MM SCREENING DIGITAL BREAST TOMOSYNTHESIS, BILATERAL CLINICAL INFORMATION: Screening. Asymptomatic. The patient is status post bilateral breast reduction. COMPARISON: Mammography: This study is compared with prior exams dating back to 2018. TECHNIQUE: Digital breast tomosynthesis is performed in both the craniocaudal and mediolateral oblique views along with computer-aided detection (CAD). Synthesized 2D images are generated from the tomosynthesis. FINDINGS: There are scattered areas of fibroglandular density (ACR BI-RADS breast composition Category b). There are no significant masses, abnormal calcifications, or other abnormalities. There are post reduction changes in each breast. There is an area of coarse benign calcification in the superior aspect of the left breast. MM/MM tomosynthesis screening BI IMPRESSION: No mammographic evidence of malignancy. ASSESSMENT: BI-RADS BI-RADS 2 - Benign Findings RECOMMENDATION: Routine annual mammography screening. 1 year F/U This examination should not preclude the clinical evaluation of a suspicious palpable abnormality. This patient's information was entered into a reminder system with a target due date for their next mammogram.
== END 2023-09-19 08:50 | disposition home or self-care (01) ==
LOC: HO.MAMMO 08:49
PROVIDERS: PCP Family Medicine; Visit Provider Family Medicine
DX: Z12.31 Encounter for screening mammogram for malignant neoplasm of breast (principal)
CPT/HCPCS: 77063; 77067

== ENCOUNTER → 2023-09-19 09:00 | Outpatient (BNV) | payer OTHER, SELFPAY | PROVIDERS: PCP Family Medicine; Visit Provider Radiology Diagnostic Radiology | DX: Z12.31 Encounter for screening mammogram for malignant neoplasm of breast (principal) | CPT/HCPCS: 77063; 77067 ==

== ENCOUNTER 2023-10-06 10:52 | Outpatient (AMB) | payer OTHER, SELFPAY ==
[2023-10-06 11:05] VITALS: BP 120/70; PULSE 62; TEMP 36.1; O2SAT 97; BMI 33.6
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
== END 2023-10-06 11:41 | disposition home or self-care (01) ==
PROVIDERS: PCP Family Medicine; Visit Provider Nurse Practitioner Primary Care
DX: N39.0 Urinary tract infection, site not specified (principal)
CPT/HCPCS: 81003; 99213

== ENCOUNTER 2023-10-26 10:50 | Outpatient (AMB) | payer OTHER, SELFPAY ==
[2023-10-26 11:17] VITALS: BP 110/60; PULSE 70; TEMP 36.4; O2SAT 95; BMI 33.7
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
== END 2023-10-26 12:33 | disposition home or self-care (01) ==
PROVIDERS: PCP Family Medicine; Visit Provider Nurse Practitioner Family
DX: Z13.9 Encounter for screening, unspecified (principal); N30.90 Cystitis, unspecified without hematuria
CPT/HCPCS: 81003; 99213

== ENCOUNTER 2023-10-26 11:58 | Outpatient (REF) | payer OTHER, SELFPAY ==
[2023-10-26 13:46] LABS: Appearance Urine Turbid; Color Urine Dark Yellow; Glucose Urine UA Negative (Negative); Leukocyte Esterase Urine Large (3+) (Negative); Nitrite Urine Positive (Negative); PH 5.5 (5.0-9.0); Specific Gravity - Urine 1.025 (1.005-1.025); UMIC TRIGGER UACC YES; Urine Blood Small (1+) (Negative); Urine Ketones Negative (Negative); Urine Protein 30 (1+) mg/dL (Neg-Trace)
[2023-10-26 13:59] LABS: Bacteria Urine 4+ (None Seen); Hyaline Casts Urine 0-2 /LPF (0-2); UACC Culture Trigger YES; WBC Clumps Urine Present; WBC Urine >50 /HPF (0-5)
== END 2023-10-26 11:59 | disposition home or self-care (01) ==
LOC: HO.LAB 11:58
PROVIDERS: Visit Provider Nurse Practitioner Family
DX: Z13.9 Encounter for screening, unspecified (principal)
CPT/HCPCS: 81001; 87086; 87088; 87186

== ENCOUNTER 2023-10-30 09:48 | Outpatient (REF) | payer OTHER, SELFPAY ==
--- NOTE | ~2023-10-30 | US_ITS ---
EXAMINATION: US RETROPERITONEAL COMPLETE (RENAL) CLINICAL INFORMATION: Urinary tract infection, site not specified. COMPARISON: CT abdomen and pelvis 07/21/2022. Renal ultrasound 10/02/2019. Ultrasound abdomen 07/23/2019. TECHNIQUE: Real-time imaging of the kidneys and bladder. FINDINGS: RIGHT KIDNEY: 10.2 x 6.8 x 5.4 cm (SAG x AP x TRV). The kidney is normal in size, contour, and echogenicity. Renal cortical thickness is normal. No calculi or focal parenchymal lesions. No hydronephrosis. LEFT KIDNEY: 11.0 x 4.9 x 5.8 cm (SAG x AP x TRV). The kidney is normal in size, contour, and echogenicity. Renal cortical thickness is normal. No renal calculi or hydronephrosis. 1 cm simple cyst in the mid to upper kidney. No imaging follow-up is recommended. BLADDER: Well distended and normal. Bilateral ureteral jets are demonstrated. Prevoid bladder volume is 259 mL. Postvoid bladder volume is 172 mL. US/US retroperitoneal comp IMPRESSION: No nephrolithiasis or hydronephrosis. Post void residual bladder volume of 172 mL.
== END 2023-10-30 09:49 | disposition home or self-care (01) ==
LOC: HO.US 09:48
PROVIDERS: PCP Family Medicine; Visit Provider Nurse Practitioner Family
DX: N39.0 Urinary tract infection, site not specified (principal)
CPT/HCPCS: 76770

== ENCOUNTER 2023-11-08 09:00 | Outpatient (REF) | payer OTHER, SELFPAY ==
[2023-11-08 13:59] LABS: CDiff Gene PCR NEGATIVE (Negative)
== END 2023-11-08 09:01 | disposition home or self-care (01) ==
LOC: HO.HMGCLNP 09:00
PROVIDERS: PCP Family Medicine; Visit Provider Internal Medicine Gastroenterology
DX: R19.7 Diarrhea, unspecified (principal)
CPT/HCPCS: 87493

== ENCOUNTER 2023-11-10 08:49 | Outpatient (AMB) | payer OTHER, SELFPAY ==
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
== END 2023-11-10 10:54 | disposition home or self-care (01) ==
PROVIDERS: PCP Family Medicine; Visit Provider Nurse Practitioner Family
DX: N39.0 Urinary tract infection, site not specified (principal); R39.9 Unspecified symptoms and signs involving the genitourinary system
CPT/HCPCS: 99214; G2211

== ENCOUNTER → 2023-11-10 08:49 | Outpatient (BNVA) | payer OTHER, SELFPAY | PROVIDERS: PCP Family Medicine; Visit Provider Nurse Practitioner Family | DX: N39.0 Urinary tract infection, site not specified (principal); R39.9 Unspecified symptoms and signs involving the genitourinary system | CPT/HCPCS: 51798; 81003; 99212 ==

== ENCOUNTER 2023-11-16 08:33 | Outpatient (AMB) | payer OTHER, SELFPAY ==
[2023-11-16 09:21] VITALS: BP 142/90; PULSE 76; TEMP 36.4; O2SAT 98
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
== END 2023-11-16 10:01 | disposition home or self-care (01) ==
PROVIDERS: PCP Family Medicine; Visit Provider Physician Assistant
DX: K57.90 Diverticulosis of intestine, part unspecified, without perforation or abscess without bleeding (principal)
CPT/HCPCS: 99215

== ENCOUNTER 2023-11-16 09:59 | Emergency (ER) | payer OTHER, SELFPAY ==
--- NOTE | ~2023-11-16 | CT_ITS ---
EXAMINATION: CT ABDOMEN AND PELVIS WITH CONTRAST CLINICAL INFORMATION: Left lower quadrant pain. COMPARISON: CT abdomen pelvis dated 07/21/2022. TECHNIQUE: Multidetector volumetric images were obtained from the superior aspect of the liver through the pubic symphysis following administration 85 mL of Omnipaque 350 intravenous contrast. Sagittal and coronal reformatted images were obtained on the technologist's workstation. Oral contrast: No This CT examination was performed using dose optimization techniques as appropriate, variously including the following: *Automated exposure control *Adjustment of mA and/or kV according to patient size (this includes techniques or standardized protocols for targeted exams where dose is matched to indication/reason for exam; i.e. extremities or head) *Use of iterative reconstruction technique DLP: 670 mGy-cm FINDINGS: LUNG BASES: The visualized lung bases are unremarkable. LIVER, GALLBLADDER, AND BILIARY TREE: The liver is enlarged and steatotic. No focal hepatic lesion or biliary ductal dilatation is present. The gallbladder is contracted. It contains numerous calculi. There is no pericholecystic inflammatory changes. PANCREAS: Unremarkable. SPLEEN: Unremarkable. ADRENAL GLANDS: Unremarkable. KIDNEYS AND URETERS: The kidneys are normal in size, shape, and attenuation. No hydronephrosis, hydroureter, or calculi seen. No perinephric stranding. BLADDER: Unremarkable. GASTROINTESTINAL TRACT: There are surgical changes status post gastric surgery. The small and large bowel are normal in caliber. There is severe diverticulosis involving the majority of the colon. The most severely affected regions are the descending and sigmoid colon. There is no pericolonic inflammatory stranding to indicate acute diverticulitis. There is no colonic wall thickening to indicate colitis. The appendix is unremarkable. ABDOMINAL WALL: No significant hernia is appreciated. LYMPH NODES: No lymphadenopathy. VASCULAR: No abdominal aortic aneurysm. There is calcific atherosclerotic disease. PELVIC VISCERA: The uterus is surgically absent. There is no adnexal mass. No pelvic free fluid. OSSEOUS STRUCTURES: No acute osseous abnormality. CT/CT abdomen pelvis w IV con IMPRESSION: There is severe diverticulosis involving the majority of the colon. The most severely affected regions of the descending and sigmoid colon. I do not see convincing evidence of acute diverticulitis, however. No evidence of colitis. The liver is enlarged and steatotic. Status post hysterectomy. Fleischner guidelines were followed.
[2023-11-16 10:04] VITALS: BP 154/79; PULSE 61; RESP 19; TEMP 36.6; O2SAT 98; BMI 33.7
[2023-11-16 10:42] LABS: MANUAL DIFF FLAG NO
[2023-11-16 10:45] LABS: Basophils Absolute Auto 0.1 X10*3/uL (0.0-0.2); Basophils Percent Auto 0.7 % (0-2); Eosinophils Absolute Auto 0.3 X10*3/uL (0.0-0.4); Eosinophils Percent Auto 3.3 % (0-4); Hematocrit 37.9 % (37.0-47.0); Hemoglobin 12.5 g/dl (12.0-16.0); Imm Gran Abs Auto 0.03 X10*3/uL (0.00-0.03); Imm Gran Pct Auto 0.3 % (0.0-0.4); Lymphocytes Absolute Auto 3.1 X10*3/uL (1.2-4.9); Lymphocytes Percent Auto 32.4 % (20-40); Mean Corpuscular Hemoglobin 31.2 pg (27.0-33.0); Mean Corpuscular Volume 94.5 fL (80.0-98.0); Mean Platelet Volume 9.5 fL (9.4-12.3); Monocytes Absolute Auto 0.4 X10*3/uL (0.1-1.2); Monocytes Percent Auto 4.4 % (2-11); Neutrophils Absolute Auto 5.7 x10*3/uL (2.0-8.3); Neutrophils Percent Auto 58.9 % (45-73); Platelet Count 313 X10*3/uL (160-400); Red Blood Count 4.01 X10*6/uL (4.20-5.50); Red Cell Distribution Width 13.3 % (11.0-16.0); White Blood Count 9.7 X10*3/uL (4.8-10.8)
[2023-11-16 10:59] LABS: Alanine Aminotransferase 31 U/L (0-31); Albumin Level 4.2 g/dL (3.5-5.0); Alkaline Phosphatase 82 U/L (39-117); Anion Gap 10 (12-20); Aspartate Amino Transferase 25 U/L (5-31); Bilirubin Direct 0.1 mg/dL (0.0-0.5); Bilirubin Total 0.5 mg/dL (0.0-1.0); Blood Urea Nitrogen 17 mg/dL (9-16); Calcium 9.4 mg/dL (8.4-10.2); Carbon Dioxide 29 mmol/L (22-29); Chloride 106 mmol/L (96-108); Creatinine Clr Calc Pharmacy 86.7; Estimated Glomerular Filt Rate > 60; Glucose Random 133 mg/dL (60-115); Lipase 11 U/L (8-78); Potassium 4.3 mmol/L (3.3-5.1); Sodium 141 mmol/L (135-145); Total Protein 7.6 g/dL (6.5-8.0)
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
[2023-11-16 13:07] LABS: Appearance Urine Clear; Color Urine Yellow; Glucose Urine UA Negative (Negative); Leukocyte Esterase Urine Trace (Negative); Nitrite Urine Negative (Negative); PH 5.5 (5.0-9.0); UMIC TRIGGER UACC YES; Urine Blood Negative (Negative); Urine Ketones Negative (Negative); Urine Protein Negative (Neg-Trace)
[2023-11-16 13:09] LABS: Bacteria Urine 1+ (None Seen); Hyaline Casts Urine 0-2 /LPF (0-2); RBC Urine 0-2 /HPF (0-2); Squamous Epithelial Cell Urine 0-2 /HPF (0-2); WBC Urine 0-5 /HPF (0-5)
[2023-11-16 14:25] LABS: C Reactive Protein 0.22 mg/dL (< or = 0.50)
[2023-11-16] MEDS: Metoclopramide HCl 10 MG/2 ML VIAL IVPUSH (14:37)
[2023-11-16] MEDS: Ketorolac Tromethamine 15 MG/ML VIAL 10 MG IVPUSH (14:37)
[2023-11-16] MEDS: 0.9 % Sodium Chloride 1,000 ML 999 ML IV (14:38)
[2023-11-16] MEDS: iohexoL 350 MG/ML 100 ML INFUS..BTL IV (15:25)
[2023-11-16] MEDS: diphenhydrAMINE HCL 50 MG/ML VIAL 25 MG IVPUSH (15:39)
[2023-11-16 15:42] VITALS: BP 144/72; PULSE 55; RESP 16; TEMP 36.4; O2SAT 96
[2023-11-16 16:02] LABS: CDiff Gene PCR NEGATIVE (Negative)
--- NOTE | 2023-11-16 16:25 | PC.NURSE ---
Pt spasm/burp/potential dry heaving noted after giving Reglin. Per MD Bonds, 0.5ml benadryl given.
[2023-11-16 17:11] VITALS: BP 140/70; PULSE 72; RESP 18; TEMP 36.8; O2SAT 98
[2023-11-17 14:10] LABS: Adenovirus F 40/41 Not Detected (Not Detect.); Astrovirus Not Detected (Not Detect.); Campylobacter Not Detected (Not Detect.); Cryptosporidium Not Detected (Not Detect.); Cyclospora cayetanensis Not Detected (Not Detect.); E. coli EAEC Not Detected (Not Detect.); E. coli EPEC Not Detected (Not Detect.); E. coli ETEC Not Detected (Not Detect.); E. coli STEC Not Detected (Not Detect.); Entamoeba histolytica Not Detected (Not Detect.); Giardia lamblia Not Detected (Not Detect.); Norovirus GI/GII Not Detected (Not Detect.); Plesiomonas shigelloides Not Detected (Not Detect.); Rotavirus A Not Detected (Not Detect.); Salmonella Not Detected (Not Detect.); Sapovirus Not Detected (Not Detect.); Shigella sp./EIEC Not Detected (Not Detect.); Vibrio Not Detected (Not Detect.); Vibrio Cholerae Not Detected (Not Detect.); Yersinia enterocolitica Not Detected (Not Detect.)
== END 2023-11-16 17:12 | disposition home or self-care (01) ==
PROVIDERS: Physician Assistant Medical; Emergency Provider Emergency Medicine; PCP Family Medicine
DX: R10.32 Left lower quadrant pain (principal); R19.7 Diarrhea, unspecified; I10 Essential (primary) hypertension; E78.2 Mixed hyperlipidemia; F12.90 Cannabis use, unspecified, uncomplicated; Z87.891 Personal history of nicotine dependence; Z79.02 Long term (current) use of antithrombotics/antiplatelets; Z79.899 Other long term (current) drug therapy
CPT/HCPCS: 36415; 74177; 80048; 80076; 81001; 83690; 85025; 86140; 87493; 87507; 96361; 96374; 96375; 99284; 99285; J1200; J1885; J2765; Q9967

== ENCOUNTER 2023-12-29 13:46 | Outpatient (AMB) | payer OTHER, SELFPAY ==
[2023-12-29 13:48] VITALS: BP 121/69; PULSE 74; BMI 33.8
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
== END 2023-12-29 14:43 | disposition home or self-care (01) ==
PROVIDERS: PCP Family Medicine; Visit Provider Internal Medicine
DX: K58.0 Irritable bowel syndrome with diarrhea (principal); M85.89 Other specified disorders of bone density and structure, multiple sites; Z98.84 Bariatric surgery status
CPT/HCPCS: 99214

== ENCOUNTER → 2023-12-29 13:46 | Outpatient (BNVA) | payer OTHER, SELFPAY | PROVIDERS: PCP Family Medicine; Visit Provider Internal Medicine | DX: K58.0 Irritable bowel syndrome with diarrhea (principal); M85.89 Other specified disorders of bone density and structure, multiple sites; Z98.84 Bariatric surgery status | CPT/HCPCS: 99212 ==

== ENCOUNTER 2024-01-02 09:01 | Outpatient (REF) | payer OTHER, SELFPAY ==
--- NOTE | ~2024-01-02 | MM_ITS ---
EXAMINATION: BONE DENSITOMETRY CLINICAL INDICATION: Other specified disorders of bone density and structure, unspecified. COMPARISON: Previous BD dated 12/23/2021 and baseline BD dated 05/17/2019. TECHNIQUE: Using a [employer] DXA System (software version: 13.1) manufactured by [employer], dual-energy x-ray absorptiometry was performed of the lumbar spine and left hip. The images are of good technical quality. Summary results are attached. FINDINGS: LEFT FEMUR, NECK: Current: BMD 0.784 g/cm2, Z-score -1.0, T-score -1.8, osteopenia. Prior: BMD 0.802 g/cm2. Baseline: BMD 0.837 g/cm2. LEFT FEMUR, TOTAL: Current: BMD 0.998 g/cm2, Z-score 0.4, T-score -0.1, normal, 3.8% decrease from previous, 6.7% decrease from baseline (<5% change is not significant). Prior: BMD 1.037 g/cm2. Baseline: BMD 1.070 g/cm2. AP SPINE L1-L4: Current: BMD 1.010 g/cm2, Z-score -0.8, T-score -1.4, osteopenia, 1.3% decrease from previous, 1.1% decrease from baseline (<5% change is not significant). Prior: BMD 1.023 g/cm2. Baseline: BMD 1.021 g/cm2. IDENTIFIED RISK FACTORS: Menopause, hysterectomy, bilateral oophorectomy, low calcium intake, secondary osteoporosis (partial gastrectomy). HISTORY OF FRACTURE: None listed. MEDICATIONS: Vitamin D. MM/XR DEXA axial skeleton IMPRESSION: 1. DIAGNOSIS: Osteopenia based on the lowest T-score value of -1.8 in the femoral neck applying World Health Organization criteria. 2. 10-YEAR FRACTURE RISK PREDICTION, FRAX: Major osteoporotic fracture (clinical spine, forearm, hip or shoulder) 9.4%. Hip fracture 1.2%. 3. Treatment Recommendations: NOF guidelines recommend consideration for treatment in postmenopausal women and men age 50 and older presenting with the following: -A hip or vertebral (clinical or morphometric) fracture. -T-score less than or equal to -2.5 at the femoral neck or spine after appropriate evaluation to exclude secondary causes. -Low bone mass at the hip or spine and a 10-year fracture probability by FRAX of greater than or equal to 3% for hip fracture or greater than or equal to 20% for major osteoporotic fracture based on the [place] adapted WHO algorithm. 4. Other Recommendations: All treatment decisions require clinical judgment and consideration of individual patient factors, including patient preferences, comorbidities, previous drug use, risk factors not captured in the FRAX model (e.g. frailty, falls, vitamin D deficiency, increased bone turnover, interval significant decline in bone density) and possible under or overestimation of fracture risk by FRAX. Additional medical evaluation for secondary cause of low bone mineral density may be appropriate. FUTURE SCAN RECOMMENDATION: People with diagnosed cases of osteoporosis or at high risk for fracture should have regular bone mineral density tests. For patients eligible for Medicare, routine testing is allowed once every 2 years. The testing frequency can be increased to one year for patients who have rapidly progressing disease, those who are receiving or discontinuing medical therapy to restore bone mass, or have additional risk factors.
== END 2024-01-02 09:02 | disposition home or self-care (01) ==
LOC: HO.MAMMO 09:01
PROVIDERS: PCP Family Medicine; Visit Provider Internal Medicine
DX: Z13.820 Encounter for screening for osteoporosis (principal); M85.80 Other specified disorders of bone density and structure, unspecified site; Z78.0 Asymptomatic menopausal state
CPT/HCPCS: 77080

== ENCOUNTER 2024-01-16 08:28 | Outpatient (REF) | payer MEDICARE, MEDICAID, SELFPAY | END 2024-01-16 08:29 | disposition home or self-care (01) | LOC: HO.LNP 08:28 | PROVIDERS: PCP Family Medicine; Visit Provider Nurse Practitioner Family | DX: N39.0 Urinary tract infection, site not specified (principal); R39.9 Unspecified symptoms and signs involving the genitourinary system; N39.46 Mixed incontinence | CPT/HCPCS: 51798; 81003; 87086; 87088; 87186; 99212 ==

== ENCOUNTER 2024-01-16 08:28 | Outpatient (AMB) | payer MEDICARE, MEDICAID, SELFPAY ==
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
== END 2024-01-16 09:09 | disposition home or self-care (01) ==
PROVIDERS: PCP Family Medicine; Visit Provider Nurse Practitioner Family
DX: R39.9 Unspecified symptoms and signs involving the genitourinary system (principal); N39.0 Urinary tract infection, site not specified; N39.46 Mixed incontinence; Z13.9 Encounter for screening, unspecified
CPT/HCPCS: 99214; G2211

== ENCOUNTER 2024-01-31 14:10 | Outpatient (AMB) | payer MEDICARE, SELFPAY ==
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
[2024-01-31 14:31] VITALS: BP 120/74; PULSE 68; RESP 12; TEMP 36.9; O2SAT 96; BMI 34.9
== END 2024-01-31 15:02 | disposition home or self-care (01) ==
PROVIDERS: PCP Family Medicine; Visit Provider Family Medicine
DX: R51.9 Headache, unspecified (principal); K58.0 Irritable bowel syndrome with diarrhea; N39.0 Urinary tract infection, site not specified; M79.7 Fibromyalgia; F41.9 Anxiety disorder, unspecified; F32.A Depression, unspecified
CPT/HCPCS: 99214

== ENCOUNTER 2024-02-12 15:43 | Outpatient (REF) | payer MEDICARE, MEDICAID, SELFPAY | END 2024-02-12 15:44 | disposition home or self-care (01) | LOC: HO.LNP 15:43 | PROVIDERS: PCP Family Medicine; Visit Provider Nurse Practitioner Family | DX: N39.46 Mixed incontinence (principal); R39.9 Unspecified symptoms and signs involving the genitourinary system; N39.0 Urinary tract infection, site not specified | CPT/HCPCS: 81003; 87086; 99212 ==

== ENCOUNTER 2024-02-12 15:43 | Outpatient (AMB) | payer MEDICARE, MEDICAID, SELFPAY ==
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
== END 2024-02-12 16:30 ==
PROVIDERS: PCP Family Medicine; Visit Provider Nurse Practitioner Family
DX: N39.46 Mixed incontinence (principal); R39.9 Unspecified symptoms and signs involving the genitourinary system; N39.0 Urinary tract infection, site not specified; Z13.9 Encounter for screening, unspecified
CPT/HCPCS: 99214; G2211

== ENCOUNTER 2024-02-22 11:45 | Outpatient (AMB) | payer MEDICARE, MEDICAID, SELFPAY ==
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
[2024-02-22 12:51] VITALS: BP 100/60; PULSE 67; RESP 10; TEMP 36.6; O2SAT 96; BMI 35.6
== END 2024-02-22 13:41 | disposition home or self-care (01) ==
PROVIDERS: PCP Family Medicine; Visit Provider Family Medicine
DX: Z01.818 Encounter for other preprocedural examination (principal)

== ENCOUNTER → 2024-02-22 11:45 | Outpatient (BNVA) | payer MEDICARE, MEDICAID, SELFPAY | PROVIDERS: PCP Family Medicine; Visit Provider Family Medicine | DX: Z01.818 Encounter for other preprocedural examination (principal) | CPT/HCPCS: 99212 ==

== ENCOUNTER 2024-03-05 12:10 | Outpatient (REF) | payer MEDICARE, SELFPAY ==
[2024-03-05 13:19] LABS: MANUAL DIFF FLAG NO
[2024-03-05 13:38] LABS: Basophils Absolute Auto 0.1 X10*3/uL (0.0-0.2); Basophils Percent Auto 0.7 % (0-2); Eosinophils Absolute Auto 0.3 X10*3/uL (0.0-0.4); Eosinophils Percent Auto 3.5 % (0-4); Hematocrit 37.8 % (37.0-47.0); Hemoglobin 12.5 g/dl (12.0-16.0); Imm Gran Abs Auto 0.04 X10*3/uL (0.00-0.03); Imm Gran Pct Auto 0.5 % (0.0-0.4); Lymphocytes Absolute Auto 2.6 X10*3/uL (1.2-4.9); Lymphocytes Percent Auto 28.8 % (20-40); Mean Corpuscular HGB Conc 33.1 g/dl (31.0-35.0); Mean Corpuscular Hemoglobin 31.1 pg (27.0-33.0); Mean Platelet Volume 10.1 fL (9.4-12.3); Monocytes Absolute Auto 0.6 X10*3/uL (0.1-1.2); Monocytes Percent Auto 6.2 % (2-11); Neutrophils Absolute Auto 5.4 x10*3/uL (2.0-8.3); Neutrophils Percent Auto 60.3 % (45-73); Platelet Count 336 X10*3/uL (160-400); Red Blood Count 4.02 X10*6/uL (4.20-5.50); Red Cell Distribution Width 13.7 % (11.0-16.0); White Blood Count 8.9 X10*3/uL (4.8-10.8)
[2024-03-05 14:13] LABS: Erythrocyte Sedimentation Rate 23 MM/HR (0-20)
[2024-03-05 14:14] LABS: Alanine Aminotransferase 42 U/L (0-31); Albumin Level 4.3 g/dL (3.5-5.0); Alkaline Phosphatase 84 U/L (39-117); Anion Gap 12 (12-20); Aspartate Amino Transferase 28 U/L (5-31); Bilirubin Total 0.4 mg/dL (0.0-1.0); Blood Urea Nitrogen 15 mg/dL (9-16); Calcium 9.3 mg/dL (8.4-10.2); Carbon Dioxide 29 mmol/L (22-29); Chloride 105 mmol/L (96-108); Estimated Glomerular Filt Rate > 60; Glucose Random 80 mg/dL (60-115); Sodium 142 mmol/L (135-145); Total Protein 7.5 g/dL (6.5-8.0)
[2024-03-05 14:19] LABS: Rheumatoid Factor < 13.0 IU/mL (<15.0)
[2024-03-06 07:29] LABS: CRP High Sensitivity 4.1 mg/L
== END 2024-03-05 12:11 | disposition home or self-care (01) ==
LOC: HO.HMGCLDS 12:10
PROVIDERS: PCP Family Medicine; Visit Provider Family Medicine
DX: Z00.00 Encounter for general adult medical examination without abnormal findings (principal); M54.2 Cervicalgia
CPT/HCPCS: 36415; 80053; 85025; 85652; 86141; 86431

== ENCOUNTER → 2024-03-11 16:12 | Outpatient (AMB) | payer MEDICARE, MEDICAID, SELFPAY ==
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
[2024-03-11 16:15] VITALS: BP 124/82; PULSE 86; BMI 34.9
== END ==
PROVIDERS: PCP Family Medicine; Visit Provider Internal Medicine
DX: K58.0 Irritable bowel syndrome with diarrhea (principal); M85.89 Other specified disorders of bone density and structure, multiple sites; Z98.84 Bariatric surgery status
CPT/HCPCS: 99214

== ENCOUNTER → 2024-03-11 16:12 | Outpatient (BNVA) | payer MEDICARE, MEDICAID, SELFPAY | PROVIDERS: PCP Family Medicine; Visit Provider Internal Medicine | DX: K58.0 Irritable bowel syndrome with diarrhea (principal); M85.89 Other specified disorders of bone density and structure, multiple sites; R10.9 Unspecified abdominal pain; Z98.84 Bariatric surgery status | CPT/HCPCS: 99212 ==

== ENCOUNTER 2024-03-21 10:54 | Outpatient (AMB) | payer MEDICARE, MEDICAID, SELFPAY ==
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
== END 2024-03-21 11:57 | disposition home or self-care (01) ==
LOC: HO.HUSH 10:55
PROVIDERS: PCP Family Medicine; Visit Provider Urology
DX: N39.0 Urinary tract infection, site not specified (principal); R39.9 Unspecified symptoms and signs involving the genitourinary system; N39.46 Mixed incontinence; Z13.9 Encounter for screening, unspecified
CPT/HCPCS: 52000; 99214

== ENCOUNTER 2024-03-21 10:54 | Outpatient (REF) | payer MEDICARE, MEDICAID, SELFPAY | END 2024-03-21 10:55 | disposition home or self-care (01) | LOC: HO.LAB 10:54 | PROVIDERS: PCP Family Medicine; Visit Provider Urology | DX: N39.0 Urinary tract infection, site not specified (principal); B96.20 Unspecified Escherichia coli [E. coli] as the cause of diseases classified elsewhere; R39.9 Unspecified symptoms and signs involving the genitourinary system; N39.46 Mixed incontinence; N32.89 Other specified disorders of bladder; Z79.899 Other long term (current) drug therapy | CPT/HCPCS: 51798; 52000; 81003; 87086; 87088; 87186; 99212 ==

== ENCOUNTER 2024-04-02 11:03 | Outpatient (AMB) | payer MEDICARE, MEDICAID, SELFPAY ==
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
== END 2024-04-02 17:05 | disposition home or self-care (01) ==
LOC: HO.HMCFM 11:04
PROVIDERS: PCP Family Medicine; Visit Provider Family Medicine
DX: R74.01 Elevation of levels of liver transaminase levels (principal); M79.7 Fibromyalgia; Z68.28 Body mass index [BMI] 28.0-28.9, adult

== ENCOUNTER → 2024-04-10 08:59 | Outpatient (BNVA) | payer MEDICARE, MEDICAID, SELFPAY | PROVIDERS: PCP Family Medicine; Visit Provider Family Medicine | DX: Z00.00 Encounter for general adult medical examination without abnormal findings (principal); I10 Essential (primary) hypertension; E55.9 Vitamin D deficiency, unspecified ==

== ENCOUNTER 2024-04-16 10:57 | Outpatient (REF) | payer MEDICARE, MEDICAID, SELFPAY ==
--- NOTE | ~2024-04-16 | XR_ITS ---
EXAMINATION:XR CERVICAL SPINE 2-3 VIEWS CLINICAL INFORMATION: Pain COMPARISON: None TECHNIQUE: 2 views FINDINGS: 7 cervical vertebrae identified maintaining normal height and alignments.. Narrowing of intervertebral disc spaces at C4-5, C5-C6 6 suggests underlying moderate degenerative disc disease. No prevertebral soft tissue swelling. Surrounding soft tissue and included lung apices are clear. Not significantly changed from prior exam. Included lung apices are clear. XR/XR cervical spine 2V IMPRESSION: 1. No fracture. 2. Narrowing of intervertebral disc spaces suggest underlying degenerative disc disease. 3. Bone alignments are satisfactory. Electronically signed by: Joaquina Berumen MD 05/22/2024 09:13 PM MANJINDER
== END 2024-04-16 10:58 | disposition home or self-care (01) ==
LOC: HO.HMGCX 10:57
PROVIDERS: PCP Family Medicine; Visit Provider Physical Medicine & Rehabilitation
DX: M54.2 Cervicalgia (principal); M15.0 Primary generalized (osteo)arthritis
CPT/HCPCS: 72040

== ENCOUNTER → 2024-04-24 15:51 | Outpatient (AMB) | payer MEDICARE, MEDICAID, SELFPAY ==
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
[2024-04-24 15:59] VITALS: BP 111/65; PULSE 98; BMI 36.3
== END ==
PROVIDERS: PCP Family Medicine; Visit Provider Internal Medicine
DX: K58.0 Irritable bowel syndrome with diarrhea (principal); R15.9 Full incontinence of feces; R15.2 Fecal urgency
CPT/HCPCS: 99214

== ENCOUNTER → 2024-04-24 15:51 | Outpatient (BNVA) | payer MEDICARE, MEDICAID, SELFPAY | PROVIDERS: PCP Family Medicine; Visit Provider Internal Medicine | DX: K58.0 Irritable bowel syndrome with diarrhea (principal); R15.9 Full incontinence of feces; R15.2 Fecal urgency | CPT/HCPCS: 99212 ==

== ENCOUNTER 2024-05-01 11:46 | Outpatient (AMB) | payer MEDICARE, MEDICAID, SELFPAY ==
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
[2024-05-01 12:42] VITALS: BP 116/74; PULSE 69; RESP 16; TEMP 36.7; O2SAT 96; BMI 36.5
== END 2024-05-01 13:17 | disposition home or self-care (01) ==
PROVIDERS: PCP Family Medicine; Visit Provider Family Medicine
DX: Z00.00 Encounter for general adult medical examination without abnormal findings (principal); I10 Essential (primary) hypertension; R74.01 Elevation of levels of liver transaminase levels; M79.7 Fibromyalgia; M85.89 Other specified disorders of bone density and structure, multiple sites; K21.9 Gastro-esophageal reflux disease without esophagitis; F41.9 Anxiety disorder, unspecified; F32.A Depression, unspecified; R09.81 Nasal congestion; Z12.31 Encounter for screening mammogram for malignant neoplasm of breast; Z12.11 Encounter for screening for malignant neoplasm of colon

== ENCOUNTER → 2024-05-01 11:46 | Outpatient (BNVA) | payer MEDICARE, MEDICAID, SELFPAY | PROVIDERS: PCP Family Medicine; Visit Provider Family Medicine | DX: Z00.00 Encounter for general adult medical examination without abnormal findings (principal); I10 Essential (primary) hypertension; H66.90 Otitis media, unspecified, unspecified ear; R74.01 Elevation of levels of liver transaminase levels; M79.7 Fibromyalgia; M85.89 Other specified disorders of bone density and structure, multiple sites; K21.9 Gastro-esophageal reflux disease without esophagitis; F41.9 Anxiety disorder, unspecified; F32.A Depression, unspecified; R09.81 Nasal congestion | CPT/HCPCS: 96127; 99397 ==

== ENCOUNTER 2024-06-17 11:27 | Outpatient (REF) | payer MEDICARE, MEDICAID, SELFPAY | END 2024-06-17 11:28 | disposition home or self-care (01) | LOC: HO.LAB 11:27 | PROVIDERS: PCP Family Medicine; Visit Provider Urology | DX: N39.0 Urinary tract infection, site not specified (principal); R39.9 Unspecified symptoms and signs involving the genitourinary system; N39.8 Other specified disorders of urinary system; R19.5 Other fecal abnormalities; R39.15 Urgency of urination | CPT/HCPCS: 81003; 87086; 87088; 87186; 99212 ==

== ENCOUNTER 2024-06-17 11:27 | Outpatient (AMB) | payer MEDICARE, MEDICAID, SELFPAY ==
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
== END 2024-06-17 12:57 | disposition home or self-care (01) ==
PROVIDERS: PCP Family Medicine; Visit Provider Urology
DX: N39.0 Urinary tract infection, site not specified (principal); R39.9 Unspecified symptoms and signs involving the genitourinary system; N39.8 Other specified disorders of urinary system; R19.5 Other fecal abnormalities; R39.15 Urgency of urination; Z13.9 Encounter for screening, unspecified
CPT/HCPCS: 99214

== ENCOUNTER 2024-06-18 08:27 | Outpatient (REF) | payer MEDICARE, MEDICAID, SELFPAY ==
[2024-06-18 10:15] LABS: MANUAL DIFF FLAG NO
[2024-06-18 10:17] LABS: Basophils Absolute Auto 0.1 X10*3/uL (0.0-0.2); Basophils Percent Auto 0.9 % (0-2); Eosinophils Absolute Auto 0.3 X10*3/uL (0.0-0.4); Eosinophils Percent Auto 4.5 % (0-4); Hematocrit 37.3 % (37.0-47.0); Hemoglobin 11.9 g/dl (12.0-16.0); Imm Gran Abs Auto 0.02 X10*3/uL (0.00-0.03); Imm Gran Pct Auto 0.3 % (0.0-0.4); Lymphocytes Absolute Auto 2.2 X10*3/uL (1.2-4.9); Lymphocytes Percent Auto 29.1 % (20-40); Mean Corpuscular HGB Conc 31.9 g/dl (31.0-35.0); Mean Corpuscular Hemoglobin 30.6 pg (27.0-33.0); Mean Corpuscular Volume 95.9 fL (80.0-98.0); Mean Platelet Volume 10.1 fL (9.4-12.3); Monocytes Absolute Auto 0.4 X10*3/uL (0.1-1.2); Monocytes Percent Auto 5.8 % (2-11); Neutrophils Absolute Auto 4.4 x10*3/uL (2.0-8.3); Neutrophils Percent Auto 59.4 % (45-73); Platelet Count 304 X10*3/uL (160-400); Red Blood Count 3.89 X10*6/uL (4.20-5.50); Red Cell Distribution Width 13.5 % (11.0-16.0); White Blood Count 7.4 X10*3/uL (4.8-10.8)
[2024-06-18 10:35] LABS: Appearance Urine Cloudy; Color Urine Dark Yellow; Glucose Urine UA Negative (Negative); Leukocyte Esterase Urine Small (1+) (Negative); Nitrite Urine Positive (Negative); PH 5.5 (5.0-9.0); UMIC TRIGGER UA YES; Urine Blood Negative (Negative); Urine Ketones Negative (Negative); Urine Protein Negative (Neg-Trace)
[2024-06-18 10:47] LABS: Alanine Aminotransferase 72 U/L (0-31); Albumin Level 4.2 g/dL (3.5-5.0); Alkaline Phosphatase 94 U/L (39-117); Anion Gap 11 (12-20); Aspartate Amino Transferase 52 U/L (5-31); Bilirubin Total 0.5 mg/dL (0.0-1.0); Blood Urea Nitrogen 17 mg/dL (9-16); Carbon Dioxide 28 mmol/L (22-29); Chloride 107 mmol/L (96-108); Cholesterol 168 mg/dL (<200); Estimated Glomerular Filt Rate > 60; Glucose Fasting 128 mg/dL (60-99); HDL Cholesterol 47 mg/dL (>40); LDL Cholesterol Calculated 82 mg/dL (<100); Potassium 4.7 mmol/L (3.3-5.1); Sodium 141 mmol/L (135-145); Total Protein 7.7 g/dL (6.5-8.0); Triglycerides 195 mg/dL (<150)
[2024-06-18 11:04] LABS: Bacteria Urine 4+ (None Seen); Hyaline Casts Urine 0-2 /LPF (0-2); RBC Urine 0-2 /HPF (0-2); WBC Urine 0-5 /HPF (0-5)
[2024-06-18 11:07] LABS: Creatinine Urine 116.45 mg/dL; Microalbum/Creatinine Ratio Ur 7.7 ug/mg cr (<30)
[2024-06-18 11:13] LABS: TSH reflex Free T4 2.01 uIU/mL (0.32-4.0); Vitamin D 25-OH Total 54.8 ng/mL (>30)
== END 2024-06-18 08:28 | disposition home or self-care (01) ==
LOC: HO.HMGCLDS 08:27
PROVIDERS: PCP Family Medicine; Visit Provider Family Medicine
DX: Z00.00 Encounter for general adult medical examination without abnormal findings (principal); E55.9 Vitamin D deficiency, unspecified; I10 Essential (primary) hypertension
CPT/HCPCS: 36415; 80053; 80061; 81001; 82043; 82306; 82570; 84443; 85025

== ENCOUNTER 2024-06-20 15:40 | Outpatient (AMB) | payer MEDICARE, MEDICAID, SELFPAY ==
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
[2024-06-20 16:23] VITALS: BP 130/80; PULSE 85; RESP 14; TEMP 36.6; O2SAT 94; BMI 37.0
== END 2024-06-20 17:12 | disposition home or self-care (01) ==
PROVIDERS: PCP Family Medicine; Visit Provider Family Medicine
DX: R74.8 Abnormal levels of other serum enzymes (principal); R73.01 Impaired fasting glucose; R15.9 Full incontinence of feces; R15.2 Fecal urgency; S03.00XA Dislocation of jaw, unspecified side, initial encounter; R73.03 Prediabetes

== ENCOUNTER → 2024-06-20 15:40 | Outpatient (BNVA) | payer MEDICARE, MEDICAID, SELFPAY | PROVIDERS: PCP Family Medicine; Visit Provider Family Medicine | DX: R74.8 Abnormal levels of other serum enzymes (principal); R73.01 Impaired fasting glucose; R15.9 Full incontinence of feces; R15.2 Fecal urgency; R73.03 Prediabetes; S03.00XD Dislocation of jaw, unspecified side, subsequent encounter | CPT/HCPCS: 83036; 99212 ==

== ENCOUNTER 2024-08-27 08:38 | Outpatient (AMB) | payer MEDICARE, MEDICAID, SELFPAY ==
--- NOTE | 2024-08-27 08:39 | AM.OFFVISNUR ---
Intake Visit Reasons: UA For Urody Allergies varenicline Adverse Reaction (Unknown, Verified 06/20/24 16:14) suicidal ideations Nursing Note Patient presents to office for urine sample for urodynamics appointment. Patient able to give sample, sent to lab for culture. Patient aware will get call if infection present Assessment & Plan Assessment & Plan Orders: Orders Urine Culture Today N39.0 - Urinary tract infection, site not specified, N39.46 - Mixed incontinence, R39.15 - Urgency of urination, R39.9 - Unspecified symptoms and signs involving the genitourinary system AMB Urinalysis Automated Today N39.0 - Urinary tract infection, site not specified, N39.46 - Mixed incontinence, R39.15 - Urgency of urination, R39.9 - Unspecified symptoms and signs involving the genitourinary system Coding
== END 2024-08-27 08:44 | disposition home or self-care (01) ==
LOC: HO.HUSH 08:38
PROVIDERS: PCP Family Medicine; Visit Provider Urology
DX: R39.15 Urgency of urination (principal); N39.46 Mixed incontinence; R39.9 Unspecified symptoms and signs involving the genitourinary system; N39.0 Urinary tract infection, site not specified

== ENCOUNTER 2024-08-27 08:38 | Outpatient (REF) | payer MEDICARE, MEDICAID, SELFPAY | END 2024-08-27 08:39 | disposition home or self-care (01) | LOC: HO.LAB 08:38 | PROVIDERS: PCP Family Medicine; Visit Provider Urology | DX: R39.9 Unspecified symptoms and signs involving the genitourinary system (principal); N39.46 Mixed incontinence; N39.0 Urinary tract infection, site not specified | CPT/HCPCS: 81003; 87086; 87088; 87186 ==

== ENCOUNTER 2024-09-06 10:42 | Outpatient (AMB) | payer MEDICARE, MEDICAID, SELFPAY ==
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
== END 2024-09-06 11:49 | disposition home or self-care (01) ==
PROVIDERS: PCP Family Medicine; Visit Provider Urology
DX: R39.15 Urgency of urination (principal)
CPT/HCPCS: 51701; 99214

== ENCOUNTER 2024-09-06 10:42 | Outpatient (REF) | payer MEDICARE, MEDICAID, SELFPAY | END 2024-09-06 10:43 | disposition home or self-care (01) | LOC: HO.LNP 10:42 | PROVIDERS: PCP Family Medicine; Visit Provider Urology | DX: R39.15 Urgency of urination (principal) | CPT/HCPCS: 87086; 87088; 87186 ==

== ENCOUNTER 2024-09-16 13:21 | Outpatient (REF) | payer MEDICARE, MEDICAID, SELFPAY ==
[2024-09-16 16:10] LABS: Appearance Urine Cloudy; Color Urine Dark Yellow; Glucose Urine UA Negative (Negative); Leukocyte Esterase Urine Trace (Negative); Nitrite Urine Negative (Negative); Specific Gravity - Urine >= 1.030 (1.005-1.025); UMIC TRIGGER UA YES; Urine Blood Negative (Negative); Urine Ketones Trace mg/dL (Negative); Urine Protein Trace mg/dL (Neg-Trace)
[2024-09-16 16:26] LABS: Bacteria Urine None Seen (None Seen); Calcium Oxalate Crystals Urine Present; RBC Urine 0-2 /HPF (0-2); WBC Urine 0-5 /HPF (0-5)
== END 2024-09-16 13:22 | disposition home or self-care (01) ==
LOC: HO.HMGCLDS 13:21
PROVIDERS: PCP Family Medicine; Visit Provider Family Medicine
DX: Z00.00 Encounter for general adult medical examination without abnormal findings (principal)
CPT/HCPCS: 81001

== ENCOUNTER 2024-09-19 | Outpatient (REF) | payer MEDICARE, MEDICAID, SELFPAY ==
[2024-09-20 11:46] LABS: Appearance Urine Turbid; Color Urine Dark Yellow; Glucose Urine UA Negative (Negative); Leukocyte Esterase Urine Moderate (2+) (Negative); Nitrite Urine Positive (Negative); PH 5.5 (5.0-9.0); Specific Gravity - Urine >= 1.030 (1.005-1.025); UMIC TRIGGER UA YES; Urine Blood Trace (Negative); Urine Ketones 15 mg/dL (Negative); Urine Protein 30 (1+) mg/dL (Neg-Trace)
[2024-09-20 12:10] LABS: Bacteria Urine 4+ (None Seen); Calcium Oxalate Crystals Urine Present
== END 2024-09-19 00:01 | disposition home or self-care (01) ==
LOC: HO.LNP
PROVIDERS: Visit Provider Family Medicine
DX: E11.9 Type 2 diabetes mellitus without complications (principal)
CPT/HCPCS: 81001

== ENCOUNTER 2024-09-19 13:39 | Outpatient (REF) | payer MEDICARE, MEDICAID, SELFPAY | END 2024-09-19 13:40 | disposition home or self-care (01) | LOC: HO.LAB 13:39 | PROVIDERS: PCP Family Medicine; Visit Provider Family Medicine | DX: E11.9 Type 2 diabetes mellitus without complications (principal); E66.9 Obesity, unspecified; M79.7 Fibromyalgia; B37.0 Candidal stomatitis | CPT/HCPCS: 83036; 99212 ==

== ENCOUNTER 2024-09-19 13:39 | Outpatient (AMB) | payer MEDICARE, MEDICAID, SELFPAY ==
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
[2024-09-19 13:56] VITALS: BP 120/70; PULSE 93; RESP 14; O2SAT 94; BMI 36.6
== END 2024-09-19 14:57 | disposition home or self-care (01) ==
LOC: HO.HMCFM 13:39
PROVIDERS: PCP Family Medicine; Visit Provider Family Medicine
DX: E11.9 Type 2 diabetes mellitus without complications (principal); E66.9 Obesity, unspecified; Z68.36 Body mass index [BMI] 36.0-36.9, adult; M79.7 Fibromyalgia; B37.0 Candidal stomatitis

== ENCOUNTER 2024-09-23 13:10 | Outpatient (REF) | payer MEDICARE, MEDICAID, SELFPAY ==
[2024-09-23 16:22] LABS: Appearance Urine Turbid; Color Urine Dark Yellow; Glucose Urine UA Negative (Negative); Leukocyte Esterase Urine Negative (Negative); Nitrite Urine Positive (Negative); PH 5.5 (5.0-9.0); Specific Gravity - Urine 1.025 (1.005-1.025); UMIC TRIGGER UA YES; Urine Blood Negative (Negative); Urine Ketones Trace mg/dL (Negative); Urine Protein Trace mg/dL (Neg-Trace)
[2024-09-23 16:27] LABS: Bacteria Urine 4+ (None Seen); Hyaline Casts Urine 0-2 /LPF (0-2); RBC Urine 0-2 /HPF (0-2); WBC Urine 0-5 /HPF (0-5)
== END 2024-09-23 13:11 | disposition home or self-care (01) ==
LOC: HO.HMGCLDS 13:10
PROVIDERS: PCP Family Medicine; Visit Provider Urology
DX: N39.0 Urinary tract infection, site not specified (principal)
CPT/HCPCS: 81001; 87086; 87088; 87186

== ENCOUNTER 2024-09-24 08:42 | Outpatient (REF) | payer MEDICARE, MEDICAID, SELFPAY | END 2024-09-24 08:43 | disposition home or self-care (01) | LOC: HO.MAMMO 08:42 | PROVIDERS: PCP Family Medicine; Visit Provider Family Medicine | DX: Z12.31 Encounter for screening mammogram for malignant neoplasm of breast (principal) | CPT/HCPCS: 77063; 77067 ==

== ENCOUNTER → 2024-09-24 08:45 | Outpatient (BNV) | payer MEDICARE, MEDICAID, SELFPAY | PROVIDERS: PCP Family Medicine; Visit Provider Internal Medicine | DX: Z12.31 Encounter for screening mammogram for malignant neoplasm of breast (principal) | CPT/HCPCS: 77063; 77067 ==

== ENCOUNTER 2024-10-04 13:20 | Outpatient (AMB) | payer MEDICARE, MEDICAID, SELFPAY ==
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
[2024-10-04 13:26] VITALS: BP 128/78; PULSE 68; O2SAT 95; BMI 36.8
[2024-10-04 13:39] LABS: Glucose, Whole Blood 138 mg/dL (60-115)
== END 2024-10-04 14:30 | disposition home or self-care (01) ==
LOC: HO.ENCR 13:21
PROVIDERS: PCP Family Medicine; Visit Provider Physician Assistant Medical
DX: E11.40 Type 2 diabetes mellitus with diabetic neuropathy, unspecified (principal)

== ENCOUNTER → 2024-10-04 13:20 | Outpatient (BNVA) | payer MEDICARE, MEDICAID, SELFPAY | PROVIDERS: PCP Family Medicine; Visit Provider Physician Assistant Medical | DX: E11.40 Type 2 diabetes mellitus with diabetic neuropathy, unspecified (principal); E11.65 Type 2 diabetes mellitus with hyperglycemia | CPT/HCPCS: 82947; 99212 ==

== ENCOUNTER 2024-10-08 14:24 | Outpatient (REF) | payer MEDICARE, MEDICAID, SELFPAY ==
--- NOTE | ~2024-10-08 | US_ITS ---
EXAMINATION: US KIDNEY BILATERAL HISTORY: R39.9 - Unspecified symptoms and signs involving the genitourinary system TECHNIQUE: Real-time grayscale ultrasound imaging of the kidneys was performed and images were reviewed. COMPARISON: Comparison is made with the prior examination dated 10/30/2023. FINDINGS: Right kidney: The right kidney measures 11.6 x 4.6 x 5.8 cm. Renal parenchymal echotexture and thickness are normal. There are no masses. There is no hydronephrosis or renal calculi. Left Kidney: The left kidney measures 11.3 x 5.1 x 5.4 cm. There is a junctional parenchymal defect at the upper pole. Renal parenchymal echotexture and thickness are otherwise normal. There are no masses. There is no hydronephrosis or renal calculi. US/US renal BI IMPRESSION: Unremarkable renal ultrasound. Electronically signed by: Jesse Rodriges MD 10/08/2024 03:51 PM EDT
== END 2024-10-08 14:25 | disposition home or self-care (01) ==
LOC: HO.HMGCX 14:24
PROVIDERS: PCP Family Medicine; Visit Provider Urology
DX: R39.9 Unspecified symptoms and signs involving the genitourinary system (principal); N39.46 Mixed incontinence; N39.0 Urinary tract infection, site not specified
CPT/HCPCS: 76775

== ENCOUNTER → 2024-10-08 14:46 | Outpatient (BNV) | payer MEDICARE, MEDICAID, SELFPAY | PROVIDERS: PCP Family Medicine; Visit Provider Radiology Diagnostic Radiology | DX: R39.9 Unspecified symptoms and signs involving the genitourinary system (principal) | CPT/HCPCS: 76775 ==

== ENCOUNTER → 2024-10-10 13:47 | Outpatient (BNVA) | payer MEDICARE, MEDICAID, SELFPAY | PROVIDERS: PCP Family Medicine ==

== ENCOUNTER 2024-10-11 10:19 | Outpatient (AMB) | payer MEDICARE, MEDICAID, SELFPAY ==
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
[2024-10-11 10:32] VITALS: BP 130/65; PULSE 74; O2SAT 95; BMI 36.3
== END 2024-10-11 11:04 | disposition home or self-care (01) ==
LOC: HO.HGI 10:20
PROVIDERS: PCP Family Medicine; Visit Provider Internal Medicine
DX: K58.0 Irritable bowel syndrome with diarrhea (principal); R15.9 Full incontinence of feces; R15.2 Fecal urgency
CPT/HCPCS: 99214

== ENCOUNTER → 2024-10-11 10:19 | Outpatient (BNVA) | payer MEDICARE, MEDICAID, SELFPAY | PROVIDERS: PCP Family Medicine; Visit Provider Internal Medicine | DX: K58.0 Irritable bowel syndrome with diarrhea (principal); R10.9 Unspecified abdominal pain; E11.9 Type 2 diabetes mellitus without complications; R15.9 Full incontinence of feces; R15.2 Fecal urgency; Z98.84 Bariatric surgery status; Z79.899 Other long term (current) drug therapy | CPT/HCPCS: 99212 ==

== ENCOUNTER → 2024-10-21 07:53 | Outpatient (BNVA) | payer MEDICARE, MEDICAID, SELFPAY | PROVIDERS: PCP Family Medicine; Visit Provider Registered Nurse Diabetes Educator | DX: E11.9 Type 2 diabetes mellitus without complications (principal); N39.0 Urinary tract infection, site not specified; B37.0 Candidal stomatitis | CPT/HCPCS: 99212 ==

== ENCOUNTER 2024-10-21 14:29 | Outpatient (AMB) | payer MEDICARE, MEDICAID, SELFPAY ==
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
[2024-10-21 14:55] VITALS: BP 124/70; PULSE 64; RESP 16; TEMP 36.7; O2SAT 96; BMI 36.2
== END 2024-10-21 15:58 | disposition home or self-care (01) ==
LOC: HO.HMCFM 14:31
PROVIDERS: PCP Family Medicine; Visit Provider Family Medicine
DX: E11.9 Type 2 diabetes mellitus without complications (principal); N39.0 Urinary tract infection, site not specified; B37.0 Candidal stomatitis

== ENCOUNTER 2024-11-01 14:23 | Outpatient (REF) | payer MEDICARE, MEDICAID, SELFPAY | END 2024-11-01 14:24 | disposition home or self-care (01) | LOC: HO.LAB 14:23 | PROVIDERS: PCP Family Medicine; Visit Provider Urology | DX: N39.0 Urinary tract infection, site not specified (principal) | CPT/HCPCS: 87086 ==

== ENCOUNTER 2024-11-01 14:23 | Outpatient (AMB) | payer MEDICARE, MEDICAID, SELFPAY ==
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
== END 2024-11-01 15:31 | disposition home or self-care (01) ==
LOC: HO.HUSH 14:24
PROVIDERS: PCP Family Medicine; Visit Provider Urology
DX: N39.0 Urinary tract infection, site not specified (principal); R39.9 Unspecified symptoms and signs involving the genitourinary system; N39.8 Other specified disorders of urinary system; R19.5 Other fecal abnormalities; R39.15 Urgency of urination
CPT/HCPCS: 52000; 99213

== ENCOUNTER 2024-11-06 10:04 | Outpatient (AMB) | payer MEDICARE, MEDICAID, SELFPAY ==
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
== END 2024-11-06 10:45 | disposition home or self-care (01) ==
LOC: HO.ENCR 10:05
PROVIDERS: PCP Family Medicine; Visit Provider Registered Nurse Diabetes Educator
DX: E11.9 Type 2 diabetes mellitus without complications (principal)

== ENCOUNTER → 2024-11-06 10:04 | Outpatient (BNVA) | payer MEDICARE, MEDICAID, SELFPAY | PROVIDERS: PCP Family Medicine; Visit Provider Registered Nurse Diabetes Educator | DX: E11.9 Type 2 diabetes mellitus without complications (principal) | CPT/HCPCS: 99211 ==

== ENCOUNTER 2024-11-15 13:47 | Outpatient (AMB) | payer MEDICARE, MEDICAID, SELFPAY ==
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
[2024-11-15 13:55] VITALS: BP 98/62; PULSE 77; O2SAT 97; BMI 35.1
[2024-11-15 14:04] LABS: Glucose, Whole Blood 194 mg/dL (60-115)
== END 2024-11-15 14:35 | disposition home or self-care (01) ==
LOC: HO.ENCR 13:48
PROVIDERS: PCP Family Medicine; Visit Provider Physician Assistant Medical
DX: E11.40 Type 2 diabetes mellitus with diabetic neuropathy, unspecified (principal)

== ENCOUNTER → 2024-11-15 13:47 | Outpatient (BNVA) | payer MEDICARE, MEDICAID, SELFPAY | PROVIDERS: PCP Family Medicine; Visit Provider Physician Assistant Medical | DX: E11.40 Type 2 diabetes mellitus with diabetic neuropathy, unspecified (principal); Z79.85 Long-term (current) use of injectable non-insulin antidiabetic drugs | CPT/HCPCS: 82947; 99212 ==

== ENCOUNTER 2024-11-20 09:50 | Outpatient (AMB) | payer MEDICARE, MEDICAID, SELFPAY ==
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
== END 2024-11-20 10:24 | disposition home or self-care (01) ==
LOC: HO.ENCR 09:51
PROVIDERS: PCP Family Medicine; Visit Provider Registered Nurse Diabetes Educator
DX: E11.9 Type 2 diabetes mellitus without complications (principal)

== ENCOUNTER → 2024-11-20 09:50 | Outpatient (BNVA) | payer MEDICARE, MEDICAID, SELFPAY | PROVIDERS: PCP Family Medicine; Visit Provider Registered Nurse Diabetes Educator | DX: E11.40 Type 2 diabetes mellitus with diabetic neuropathy, unspecified (principal); Z79.85 Long-term (current) use of injectable non-insulin antidiabetic drugs | CPT/HCPCS: 99211 ==

== ENCOUNTER 2025-01-14 12:55 | Outpatient (AMB) | payer MEDICARE, MEDICAID, SELFPAY ==
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
[2025-01-14 13:05] VITALS: BP 116/84; PULSE 64; O2SAT 99; BMI 34.5
[2025-01-14 13:14] LABS: Glucose, Whole Blood 106 mg/dL (60-115)
== END 2025-01-14 13:26 | disposition home or self-care (01) ==
LOC: HO.ENCR 12:56
PROVIDERS: PCP Family Medicine; Visit Provider Physician Assistant Medical
DX: E11.40 Type 2 diabetes mellitus with diabetic neuropathy, unspecified (principal)

== ENCOUNTER → 2025-01-14 12:55 | Outpatient (BNVA) | payer MEDICARE, MEDICAID, SELFPAY | PROVIDERS: PCP Family Medicine; Visit Provider Physician Assistant Medical | DX: E11.40 Type 2 diabetes mellitus with diabetic neuropathy, unspecified (principal); I10 Essential (primary) hypertension; R79.89 Other specified abnormal findings of blood chemistry; E78.5 Hyperlipidemia, unspecified; Z79.85 Long-term (current) use of injectable non-insulin antidiabetic drugs | CPT/HCPCS: 82947; 83036; 99212 ==

== ENCOUNTER 2025-01-24 13:30 | Outpatient (AMB) | payer MEDICARE, MEDICAID, SELFPAY ==
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
[2025-01-24 13:44] VITALS: BP 130/88; PULSE 70; RESP 16; TEMP 36.9; O2SAT 96; BMI 33.8
== END 2025-01-24 14:23 | disposition home or self-care (01) ==
LOC: HO.HMCFM 13:32
PROVIDERS: PCP Family Medicine; Visit Provider Family Medicine
DX: E11.9 Type 2 diabetes mellitus without complications (principal); I10 Essential (primary) hypertension; M54.50 Low back pain, unspecified; R74.8 Abnormal levels of other serum enzymes

== ENCOUNTER → 2025-01-24 13:30 | Outpatient (BNVA) | payer MEDICARE, MEDICAID, SELFPAY | PROVIDERS: PCP Family Medicine; Visit Provider Family Medicine | DX: E11.9 Type 2 diabetes mellitus without complications (principal); I10 Essential (primary) hypertension; R74.8 Abnormal levels of other serum enzymes; M54.50 Low back pain, unspecified | CPT/HCPCS: 99212 ==

== ENCOUNTER 2025-01-27 10:29 | Outpatient (AMB) | payer MEDICARE, MEDICAID, SELFPAY ==
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
[2025-01-27 10:40] VITALS: BP 141/77; PULSE 64; BMI 33.4
== END 2025-01-27 11:26 | disposition home or self-care (01) ==
LOC: HO.HGI 10:30
PROVIDERS: PCP Family Medicine; Visit Provider Internal Medicine
DX: K58.0 Irritable bowel syndrome with diarrhea (principal); R15.9 Full incontinence of feces; R15.2 Fecal urgency
CPT/HCPCS: 99214

== ENCOUNTER → 2025-01-27 10:29 | Outpatient (BNVA) | payer MEDICARE, MEDICAID, SELFPAY | PROVIDERS: PCP Family Medicine; Visit Provider Internal Medicine | DX: K58.0 Irritable bowel syndrome with diarrhea (principal); R15.9 Full incontinence of feces; R15.2 Fecal urgency | CPT/HCPCS: 99212 ==

== ENCOUNTER 2025-01-28 09:54 | Outpatient (REF) | payer MEDICARE, MEDICAID, SELFPAY ==
[2025-01-28 13:25] LABS: Appearance Urine Cloudy; Glucose Urine UA Negative (Negative); PH 6.5 (5.0-9.0); Specific Gravity - Urine 1.015 (1.005-1.025); UMIC TRIGGER UA YES
[2025-01-28 13:51] LABS: Alanine Aminotransferase 34 U/L (0-31); Aspartate Amino Transferase 28 U/L (5-31); Cholesterol 158 mg/dL (<200); Estimated Glomerular Filt Rate > 60; HDL Cholesterol 52 mg/dL (>40); Triglycerides 130 mg/dL (<150)
[2025-01-28 13:58] LABS: Microalbum/Creatinine Ratio Ur 19.7 ug/mg cr (<30)
== END 2025-01-28 09:55 | disposition home or self-care (01) ==
LOC: HO.HMGCLDS 09:54
PROVIDERS: PCP Family Medicine; Visit Provider Physician Assistant Medical
DX: Z00.00 Encounter for general adult medical examination without abnormal findings (principal); I10 Essential (primary) hypertension; E11.9 Type 2 diabetes mellitus without complications; R79.89 Other specified abnormal findings of blood chemistry; E78.5 Hyperlipidemia, unspecified
CPT/HCPCS: 36415; 80061; 81001; 82043; 82565; 82570; 84450; 84460

== ENCOUNTER 2025-02-03 12:48 | Outpatient (REF) | payer MEDICARE, MEDICAID, SELFPAY | END 2025-02-03 12:49 | disposition home or self-care (01) | LOC: HO.HMGCLDS 12:48 | PROVIDERS: PCP Family Medicine; Referring Provider Urology; Visit Provider Physician Assistant Medical | DX: R39.9 Unspecified symptoms and signs involving the genitourinary system (principal) | CPT/HCPCS: 87086 ==

== ENCOUNTER 2025-02-20 10:51 | Outpatient (AMB) | payer MEDICARE, MEDICAID, SELFPAY ==
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
== END 2025-02-20 11:34 | disposition home or self-care (01) ==
LOC: HO.ENCR 10:52
PROVIDERS: PCP Family Medicine; Visit Provider Registered Nurse Diabetes Educator
DX: E11.40 Type 2 diabetes mellitus with diabetic neuropathy, unspecified (principal); E11.9 Type 2 diabetes mellitus without complications

== ENCOUNTER → 2025-02-20 10:51 | Outpatient (BNVA) | payer MEDICARE, MEDICAID, SELFPAY | PROVIDERS: PCP Family Medicine; Visit Provider Registered Nurse Diabetes Educator | DX: E11.40 Type 2 diabetes mellitus with diabetic neuropathy, unspecified (principal) | CPT/HCPCS: 99211 ==

== ENCOUNTER 2025-02-25 08:23 | Outpatient (REF) | payer MEDICARE, MEDICAID, SELFPAY ==
--- NOTE | ~2025-02-25 | XR_ITS ---
EXAMINATION: XR LUMBOSACRAL SPINE CLINICAL INFORMATION: LEFT LOW BACK PAIN COMPARISON: None available. Correlation made with CT abdomen pelvis 11/16/2023. TECHNIQUE: Three views of the lumbosacral spine. FINDINGS: There is no significant scoliosis. There is a normal lumbar lordosis. There is no significant subluxation. There is no fracture, compression deformity, or suspicious bone lesion. Mild degenerative disc changes are present most notable L4-5 and L5-S1. Moderate hypertrophic degenerative facet changes are present spanning L3-S1. The sacrum is intact. There are moderate right greater than left degenerative changes in the SI joints. Soft tissues demonstrate diffuse vascular calcifications. XR/XR lumbar spine 2-3V IMPRESSION: 1. No acute findings of the lumbar spine. 2. Mild to moderate lumbar spondylosis. Electronically signed by: Suhas Cruz MD 02/25/2025 09:15 AM EDT
== END 2025-02-25 08:24 | disposition home or self-care (01) ==
LOC: HO.XRAY 08:23
PROVIDERS: PCP Family Medicine; Visit Provider Physical Medicine & Rehabilitation
DX: M54.50 Low back pain, unspecified (principal)
CPT/HCPCS: 72100

== ENCOUNTER → 2025-02-25 08:28 | Outpatient (BNV) | payer MEDICARE, MEDICAID, SELFPAY | PROVIDERS: PCP Family Medicine; Visit Provider Radiology Diagnostic Radiology | DX: M47.816 Spondylosis without myelopathy or radiculopathy, lumbar region (principal) | CPT/HCPCS: 72100 ==

== ENCOUNTER 2025-03-12 11:43 | Outpatient (AMB) | payer MEDICARE, MEDICAID, SELFPAY ==
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
== END 2025-03-12 12:40 | disposition home or self-care (01) ==
LOC: HO.HUSH 11:44
PROVIDERS: PCP Family Medicine; Visit Provider Urology
DX: N39.0 Urinary tract infection, site not specified (principal)

== ENCOUNTER → 2025-03-12 11:43 | Outpatient (BNVA) | payer MEDICARE, MEDICAID, SELFPAY | PROVIDERS: PCP Family Medicine; Visit Provider Urology | DX: R39.15 Urgency of urination (principal); N39.0 Urinary tract infection, site not specified; N39.8 Other specified disorders of urinary system; R19.5 Other fecal abnormalities | CPT/HCPCS: 51798; 81003; 87086; 87088; 87186; 99212 ==

== ENCOUNTER 2025-03-19 08:02 | Outpatient (REF) | payer MEDICARE, MEDICAID, SELFPAY | END 2025-03-19 08:03 | disposition home or self-care (01) | LOC: HO.LNP 08:02 | PROVIDERS: PCP Family Medicine; Visit Provider Advanced Practice Midwife | DX: Z01.419 Encounter for gynecological examination (general) (routine) without abnormal findings (principal); N89.0 Mild vaginal dysplasia; Z91.89 Other specified personal risk factors, not elsewhere classified; Z12.72 Encounter for screening for malignant neoplasm of vagina | CPT/HCPCS: 87626; 88175; 99397 ==

== ENCOUNTER 2025-03-19 08:02 | Outpatient (AMB) | payer MEDICARE, MEDICAID, SELFPAY ==
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
[2025-03-19 08:20] VITALS: BP 122/82; BMI 33.4
== END 2025-03-19 09:46 | disposition home or self-care (01) ==
LOC: HO.HWS 08:03
PROVIDERS: PCP Family Medicine; Visit Provider Advanced Practice Midwife
DX: Z01.419 Encounter for gynecological examination (general) (routine) without abnormal findings (principal); N89.0 Mild vaginal dysplasia; Z12.72 Encounter for screening for malignant neoplasm of vagina
CPT/HCPCS: 99397; 99459

== ENCOUNTER 2025-03-30 18:58 | Emergency (ER) | payer MEDICARE, MEDICAID, SELFPAY ==
[2025-03-30 19:13] VITALS: BP 156/78; PULSE 69; RESP 18; TEMP 36.6; O2SAT 95; BMI 34.6
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
[2025-03-30] MEDS: Lidocaine HCl 1 % MPF 5 ML VIAL INFILTRATI (23:04)
--- NOTE | 2025-03-31 00:22 | PC.NURSE ---
Late Entry for 0000 Pt to nurses station to speak with KODAK regarding discharge paperwork that she states she has been waiting for for over an hour . manager quality improvement printed out the pt's paperwork (printing in EM) and asked that the pt accompany me back to her room. While in the room, the pt refused to allow staff to revital her stating she's been here long enough and just wants to go home as she has fibromyalgia. The pt was awake, alert, oriented, skin warm and dry and without outward s/s of distress noted. The pt ambulated out of the ed with even/steady gait
[2025-03-31 00:23] VITALS: BP 156/78; PULSE 69; RESP 18; TEMP 36.6; O2SAT 95
== END 2025-03-31 00:15 | disposition home or self-care (01) ==
PROVIDERS: Emergency Provider Emergency Medicine; PCP Family Medicine
DX: S01.85XA Open bite of other part of head, initial encounter (principal); R51.9 Headache, unspecified; W54.0XXA Bitten by dog, initial encounter; Y92.9 Unspecified place or not applicable; Y99.8 Other external cause status
CPT/HCPCS: 12011; 99283; 99284; J2003

== ENCOUNTER 2025-04-15 10:54 | Outpatient (AMB) | payer MEDICARE, MEDICAID, SELFPAY ==
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
[2025-04-15 10:57] VITALS: BP 128/78; PULSE 86; O2SAT 96; BMI 34.3
[2025-04-15 11:08] LABS: Glucose, Whole Blood 123 mg/dL (60-115)
== END 2025-04-15 11:24 | disposition home or self-care (01) ==
LOC: HO.ENCR 10:55
PROVIDERS: PCP Family Medicine; Visit Provider Physician Assistant Medical
DX: E11.40 Type 2 diabetes mellitus with diabetic neuropathy, unspecified (principal); I10 Essential (primary) hypertension; E78.2 Mixed hyperlipidemia; E66.811 Obesity, class 1; E66.09 Other obesity due to excess calories; Z68.34 Body mass index [BMI] 34.0-34.9, adult; Z13.9 Encounter for screening, unspecified

== ENCOUNTER → 2025-04-15 10:54 | Outpatient (BNVA) | payer MEDICARE, MEDICAID, SELFPAY | PROVIDERS: PCP Family Medicine; Visit Provider Physician Assistant Medical | DX: E11.40 Type 2 diabetes mellitus with diabetic neuropathy, unspecified (principal); I10 Essential (primary) hypertension; E78.2 Mixed hyperlipidemia; Z98.84 Bariatric surgery status; E66.811 Obesity, class 1; Z68.34 Body mass index [BMI] 34.0-34.9, adult; Z79.4 Long term (current) use of insulin | CPT/HCPCS: 82947; 83036; 99212 ==

== ENCOUNTER 2025-05-05 10:13 | Outpatient (AMB) | payer MEDICARE, MEDICAID, SELFPAY ==
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
[2025-05-05 10:45] VITALS: BP 124/76; BMI 34.2
== END 2025-05-05 11:06 | disposition home or self-care (01) ==
LOC: HO.HWS 10:14
PROVIDERS: PCP Family Medicine; Visit Provider Obstetrics & Gynecology
DX: R87.610 Atypical squamous cells of undetermined significance on cytologic smear of cervix (ASC-US) (principal); R87.810 Cervical high risk human papillomavirus (HPV) DNA test positive
CPT/HCPCS: 57421

== ENCOUNTER 2025-05-05 10:13 | Outpatient (REF) | payer MEDICARE, MEDICAID, SELFPAY | END 2025-05-05 10:14 | disposition home or self-care (01) | LOC: HO.LNP 10:13 | PROVIDERS: PCP Family Medicine; Visit Provider Obstetrics & Gynecology | DX: R87.610 Atypical squamous cells of undetermined significance on cytologic smear of cervix (ASC-US) (principal); R87.810 Cervical high risk human papillomavirus (HPV) DNA test positive | CPT/HCPCS: 88305; 88341; 88342 ==

== ENCOUNTER 2025-05-07 09:12 | Outpatient (AMB) | payer MEDICARE, MEDICAID, SELFPAY ==
--- NOTE | 2025-05-07 09:15 | A.OFFVIS_ITS ---
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 screening guidelines for women ages 18 to 39. BLOOD PRESSURE SCREENING Your blood pressure should be checked at least once every 3 to 5 years if: Your blood pressure is in the normal range (top number less than 120 mm Hg and bottom number less than 80 mm Hg) You don't have risk factors for high blood pressure Ask your provider if you need your blood pressure checked more often if: The top number is 120 to 129 mm Hg or the bottom number is 70 to 79 mm Hg You have diabetes, heart disease, kidney problems, are overweight, or have certain other health conditions You have a first-degree relative with high blood pressure You are Black You had high blood pressure during a If the top number is 130 mm Hg or greater or the bottom number is 80 mm Hg or greater, this is considered stage 1 hypertension. Schedule an appointment with your provider to learn how you can reduce your blood pressure. Watch for blood pressure screenings in your area. Ask your provider if you can stop in to have your blood pressure checked. BREAST CANCER SCREENING Experts do not agree about the benefits of breast self-exams in finding breast cancer or saving lives. Talk to your provider about what is best for you. A screening mammogram is not recommended for most women under age 40. Your provider may discuss and recommend mammograms, MRI scans, or ultrasounds if you have an increased risk for breast cancer, such as: A mother or sister who had breast cancer at a young age (most often starting screening earlier than the age the close relative was diagnosed) You carry a high-risk genetic marker CERVICAL CANCER SCREENING Cervical cancer screening should start at age 21 years unless your provider advises otherwise. After the first test: Women ages 21 through 29 should have a Pap test every 3 years. Exoprts do not agree on whether HPV testing is recommended for this age group. Women ages 30 through 65 should be screened with either a Pap test every 3 years or the HPV test every 5 years or both tests every 5 years (called cotesting ). Women who have been treated for precancer (cervical dysplasia) should continue to have Pap tests for 20 years after treatment or until age 65, whichever is longer. If you have had your uterus and cervix removed (total hysterectomy), and you have not been diagnosed with cervical cancer or precancer (high grade cervical neoplasia), you do not need cervical cancer screening. CHOLESTEROL SCREENING Cholesterol screening should begin at: Age 45 for women with no known risk factors for coronary heart disease Age 20 for women with known risk factors for coronary heart disease Repeat cholesterol screening should take place: Every 5 years for women with normal cholesterol levels More often if changes occur in lifestyle (including weight gain and diet) More often if you have diabetes, heart disease, kidney problems, or certain other conditions DIABETES SCREENING You should be screened for diabetes starting at age 35 and then repeated every 3 years if you have no risk factors for diabetes. Screening may need to start earlier and be repeated more often if you have other risk factors for diabetes, such as: You have a first degree relative with diabetes. You are overweight or have obesity. You have high blood pressure, prediabetes, or a history of heart disease. Screening for diabetes should be done if you are planning to become and you are overweight and have other risk factors such as high blood pressure. DENTAL EXAM Go to the dentist once or twice every year for an exam and cleaning. Your dentist will evaluate if you need more frequent visits. EYE EXAM Have an eye exam every 5 to 10 years before age 40. If you have vision problems, have an eye exam every 2 years or more often if recommended by your provider. You should have an eye exam that includes an examination of your retina (back of your eye) at least every year if you have diabetes. IMMUNIZATIONS Commonly needed vaccines include: Flu shot: get one every year. COVID-19 vaccine: ask your provider what is best for you. Tetanus-diphtheria and acellular pertussis (Tdap) vaccine: have one at or after age 19 as one of your tetanus-diphtheria vaccines if you did not receive it as an adolescent. Tetanus-diphtheria: have a booster (or Tdap) every 10 years. Varicella vaccine: receive 2 doses if you never had chickenpox or the varicella vaccine. Hepatitis B vaccine: receive 2, 3, or 4 doses, depending on your exact circumstances. Measles, mumps, and rubella (MMR) vaccine: receive 1 to 2 doses if you are not already immune to MMR. Your provider can tell you if you are immune. Ask your provider about the human papillomavirus (HPV) vaccine if: You have not received the HPV vaccine in the past You have not completed the full vaccine series (you should catch up on this shot) Ask your provider if you should receive other immunizations if you have certain health problems that increase your risk for some diseases such as pneumonia. INFECTIOUS DISEASE SCREENING Women who are sexually active should be screened for chlamydia and gonorrhea up until age 25. Women 25 years and older should be screened for chlamydia and gonorrhea if at high risk. Screening for hepatitis C: All adults ages 18 to 79 should get a one-time test for hepatitis C. people should be screened at every . Screening for human immunodeficiency virus (HIV): All people ages 15 to 65 should get a one-time test for HIV. Depending on your lifestyle and medical history, you may also need to be screened for infections such as syphilis and HIV, as well as other infections. PHYSICAL EXAM All adults should visit their provider from time to time, even if they are healthy. The purpose of these visits is to: Screen for disease Assess your risk of future medical problems Encourage a healthy lifestyle Update your vaccinations and other preventive care services Maintain a relationship with a provider in case of an illness Your height, weight, and BMI should be checked at every exam. During your exam, your provider may ask you about: Depression and anxiety Diet and exercise Alcohol and tobacco use Safety issues, such as using seat belts, smoke detectors, and intimate partner violence Your medicines and risk for interactions SKIN SELF-EXAM Your provider may check your skin for signs of skin cancer, especially if you're at high risk, such as if you: Have had skin cancer before Have close relatives with skin cancer Have a weakened immune system OTHER SCREENING Talk with your provider about colon cancer screening if you have a strong family history of colon cancer or polyps, or if you have had inflammatory bowel disease or polyps yourself. Routine bone density screening of women under 40 is not recommended. Quality Reporting (2020) Adult ([facility] 138//) Smoking risk assessment performed?: Yes Patient Tobacco Use Status: Former Tobacco user Depression screening performed: Yes Screen Results: Yes Negative screen Systolic BP not done?: No Diastolic BP not done?: No BMI screening not done: No Sexual Activity Screening ([facility] 153) Sexually active?: Yes Immunizations ([facility] 147, 117) Annual Influenza Vaccine: Yes Measles Antibody Test: No Mumps Antibody Test: No Rubella Antibody Test: No Varicella Antibody Test: No Anti Hepatitis A IgG Antigen test: No Anti Hepatitis B Virus Surface Ab test: No Fall Risk Screening ([facility] 139) Last assessed Fall Risk: 05/07/25 Fall risk assessment: No Falls in past year Dementia Assessment ([facility] 149) Cognitive assessment recorded: Yes Assessment of cognition with standardized tool: Yes Depression/Bipolar (159/160/161/177) PHQ-9: Total score: 0 Ophthalmol:Cataracts Visual Acuity (133) Visual acuity exam performed: Yes Coding Level of Care Code Medicare Subsequent (G0439) Est Pt Level 4 (36595) Diagnoses Encounter for subsequent annual wellness visit (AWV) in Medicare patient Z00.00 Fibromyalgia M79.7 Screening for lung cancer Z12.2 Former smoker Z87.891 Need for Tdap vaccination Z23 Influenza vaccination administered at current visit Z23 ACP (advance care planning) Z71.89 Itching of ear L29.9 CPT Codes Advance Care Planning - Time spent: 16-45 minutes ([id number]) EKG - CPT: 53329-[id number], Complete ([id number]) Vision Screening - Vision Screenin - Vision Screening ([id number]) Additional Codes PHQ-9 - 51904 - PHQ-9 Billing: Yes ([id number]) Advance Care Planning Advance Care Planning discussion: Exists, not on file Date of discussion: 05/07/25 Who was present: self Forms completed: Health Care Proxy, MOLST and Living will Time spent: 16-45 minutes Actual minutes spent: 16
[2025-05-07 09:23] VITALS: BP 120/70; PULSE 113; RESP 12; TEMP 36.4; O2SAT 98; BMI 33.6
[2025-05-07 10:00] VITALS: PULSE 100
== END 2025-05-07 10:11 | disposition home or self-care (01) ==
LOC: HO.HMCFM 09:14
PROVIDERS: PCP Family Medicine; Visit Provider Nurse Practitioner Family
DX: Z00.00 Encounter for general adult medical examination without abnormal findings (principal); M79.7 Fibromyalgia; L29.9 Pruritus, unspecified; Z23 Encounter for immunization; Z12.2 Encounter for screening for malignant neoplasm of respiratory organs; Z87.891 Personal history of nicotine dependence

== ENCOUNTER 2025-05-07 16:26 | Outpatient (REF) | payer MEDICARE, MEDICAID, SELFPAY ==
--- NOTE | ~2025-05-07 | MR_ITS ---
EXAM: MRI Cervical Spine Wo Con TECHNIQUE: Multiplanar multisequence imaging through the cervical spine was performed from the base of the skull through at least T1. INDICATION: Cervical spondylosis with radiculopathy PRIOR: February 26, 2019 FINDINGS: Skull Base: There is no tonsillar ectopia. Cranialcervical junction is intact. Cord: There is no abnormal cord signal or hydrosyringomyelia. Marrow and end-plates: There are no marrow replacing lesions. Alignment: There is mild straightening of the cervical spine Soft tissues: Paraspinal soft tissues and major vascular structures are unremarkable. C2-3: Facet osteophytes moderately narrows the right neural foramen, increased from the prior. There is no spinal stenosis or left foraminal narrowing. C3-4: Disc and uncovertebral osteophytes minimally narrow the neural foramina bilaterally. There is no spinal stenosis. C4-5: Broad-based disc bulge minimally narrows the spinal canal, increased from the prior. Disc and osteophytes result in moderate right and moderate to severe left foraminal narrowing, increased from the prior. C5-6: There is mild loss disc height and degenerative endplate changes with broad-based disc bulge results in mild spinal stenosis, increased from the prior. Disc and osteophytes result in severe bilateral foraminal narrowing, stable to increased. C6-7: Minimal disc bulge contacts the thecal sac without causing spinal stenosis. There is no foraminal narrowing. C7-T1: There is no disc bulge, herniation, spinal stenosis, or foraminal narrowing. MR/MR cervical spine wo con IMPRESSION: C2-3: There is moderate right neural frontal narrowing, increased from the prior. C4-5: There is mild spinal stenosis, increased from the prior. There is moderate right and moderate to severe left foraminal narrowing, increased from the prior. C5-6: There is mild spinal stenosis, increased from the prior, and severe bilateral foraminal narrowing, stable to increased. Electronically signed by: Jagdeep Burns MD 05/07/2025 05:24 PM [facility]
== END 2025-05-07 16:27 | disposition home or self-care (01) ==
LOC: HO.MRI 16:26
PROVIDERS: PCP Family Medicine; Visit Provider Physical Medicine & Rehabilitation
DX: Z00.00 Encounter for general adult medical examination without abnormal findings (principal); Z23 Encounter for immunization; M79.7 Fibromyalgia; L29.9 Pruritus, unspecified; Z13.31 Encounter for screening for depression; Z87.891 Personal history of nicotine dependence; Z71.89 Other specified counseling; M47.22 Other spondylosis with radiculopathy, cervical region
CPT/HCPCS: 72141; 90471; 90472; 90656; 90715; 96127; 99212; 99497; G0404

== ENCOUNTER → 2025-05-07 16:28 | Outpatient (BNV) | payer MEDICARE, MEDICAID, SELFPAY | PROVIDERS: PCP Family Medicine; Visit Provider Radiology Diagnostic Radiology | DX: M47.22 Other spondylosis with radiculopathy, cervical region (principal); M48.02 Spinal stenosis, cervical region | CPT/HCPCS: 72141 ==

== ENCOUNTER 2025-05-12 09:52 | Outpatient (AMB) | payer MEDICARE, MEDICAID, SELFPAY ==
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
== END 2025-05-12 10:33 | disposition home or self-care (01) ==
LOC: HO.HUSH 09:53
PROVIDERS: PCP Family Medicine; Visit Provider Urology
DX: Z13.9 Encounter for screening, unspecified (principal)